=== PATIENT | female | born 1990 | race Caucasian/White ===

== ENCOUNTER 2022-11-29 13:40 | Emergency (ER) | payer MEDICARE, MEDICAID, SELFPAY ==
[2022-11-29 13:46] VITALS: BP 137/100; PULSE 74; RESP 18; TEMP 36.9; O2SAT 97; BMI 44.3
--- NOTE | 2022-11-29 13:55 | ECG_ITS ---
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
--- NOTE | 2022-11-29 13:55 | XR_ITS ---
The [address] [address] Patient Name: JAYE DOSS MRN: [id number] date: 1990 Sex: F Assigned Patient Location: ED.MAIN Current Patient Location: Accession/Order Number: [id number] Exam Date: 11/29/2022 15:00 Report Date: 11/29/2022 15:43 At the request of: FUNMILAYO GREEN Procedure: XR chest 2V EXAM: XR chest 2V HISTORY: chest pain COMPARISON: None. TECHNIQUE: PA and lateral views FINDINGS: The cardiovascular silhouette is normal. Lung hernandez are well-expanded and clear. Pleural spaces are clear. The bony structures are unremarkable. XR/XR chest 2V IMPRESSION: No evidence for acute cardiopulmonary disease. Electronically authenticated by: Luis Fernando JIANG Date: 11/29/2022 15:43
[2022-11-29 14:38] LABS: Basophils Absolute Auto 0.1 10^3/uL (0.0-0.1); Basophils Percent Auto 0.6 % (0.2-2.0); Eosinophils Absolute Auto 0.3 10^3/uL (0.0-0.7); Eosinophils Percent Auto 2.2 % (0.9-7.0); Hemoglobin 13.2 g/dL (12.0-16.0); Immature Granulocytes Abs Auto 0.11 10^3/uL (0.00-0.03); Immature Granulocytes Pct Auto 0.9 % (0.0-0.5); Lymphocytes Absolute Auto 3.3 10^3/uL (1.2-3.8); Lymphocytes Percent Auto 28.1 % (20.5-60.0); Mean Corpuscular HGB Conc 34.7 g/dL (29.9-35.2); Mean Corpuscular Hemoglobin 31.7 pg (26.7-34.0); Mean Corpuscular Volume 91.1 fL (81.0-99.0); Monocytes Percent Auto 8.1 % (1.7-12.0); Neutrophils Absolute Auto 7.1 10^3/uL (1.4-6.5); Neutrophils Percent Auto 60.1 % (43.0-75.0); Platelet Count 293 10^3/uL (150-450); Red Blood Count 4.17 10^6/uL (4.20-5.40); Red Cell Distribution Width 11.8 % (11.0-15.0); White Blood Count 11.8 10^3/uL (4.0-11.0)
[2022-11-29 14:48] LABS: Alanine Aminotransferase 26 U/L (14-59); Albumin Globulin Ratio 1.2; Albumin Level 3.6 g/dL (3.4-5.0); Alkaline Phosphatase 55 U/L (46-116); Anion Gap 12.5; Aspartate Amino Transferase 20 U/L (15-37); BUN Creatinine Ratio 4.9; Bilirubin Total 0.3 mg/dL (0.2-1.0); Calcium 8.8 mg/dL (8.5-10.1); Carbon Dioxide 24.4 mmol/L (21.0-32.0); Chloride 107 mmol/L (98-107); Estimated GFR (African America >60 (>=60); Estimated GFR (Non-African Ame >60 (>=60); Globulin 3.1 g/dL; Glucose 86 mg/dL (74-106); Potassium 3.9 mmol/L (3.5-5.1); Sodium 140 mmol/L (136-145); Total Protein 6.7 g/dL (6.4-8.2); Troponin I High Sensitivity <4.0 pg/mL (4.0-51.3)
--- NOTE | 2022-11-29 15:07 | ED.CHESTPAI1 ---
HPI - Chest Pain General Chief Complaint: Chest Pain Stated Complaint: CHEST PAIN Time Seen by Provider: 11/29/22 13:52 Source: patient Mode of arrival: walk-in Limitations: no limitations History of Present Illness HPI narrative: started yesterday and continued today - describes pressure across the anterior chest. She called her psychiatrist and was told to come to the ED and that it is probably panic . On questioning she has had this numerous times in the past with negative workups. No recent fall, illness or change in activity to account for the chest pain. Nothing taken for the pain today. Related Data Home Medications Medication Instructions Recorded Confirmed buspirone 30 mg tablet 30 mg PO BID 11/29/22 11/29/22 dextroamphetamine-amphetamine 15 15 mg PO BID 11/29/22 11/29/22 mg tablet (Adderall) lithium carbonate 600 mg capsule 600 mg PO BID 11/29/22 11/29/22 olanzapine 2.5 mg tablet (Zyprexa) 2.5 mg PO DAILY 11/29/22 11/29/22 prazosin 5 mg capsule 5 mg PO DAILY 11/29/22 11/29/22 Allergies Allergy/AdvReac Type Severity Reaction Status Date / Time Penicillins Allergy Intermediate Verified 11/29/22 13:54 Exam Narrative Exam Narrative: Nurses notes and vital signs reviewed and patient is not hypoxic. afebrile General: Well-appearing and in no apparent distress. Skin: Warm, dry, no pallor noted. No rash. Head: Normocephalic, atraumatic. Eye: Pupils are equal, round and EOMI. No scleral icterus. Cardiovascular: Regular Rate and Rhythm without murmur, gallop or rub. Respiratory: No accessory muscle use or respiratory distress. Lungs are clear to auscultation, no wheezing, rales or rhonchi Chest Wall: no tenderness, crepitus or subcutaneous emphysema Musculoskeletal: normal ROM, no calf or popliteal tenderness, no lower extremity edema/swelling GI: Abdomen is soft, non-distended. Normal bowel sounds. No tenderness to palpation. No rebound, guarding, or rigidity noted. Neurological: A&O x4. No cranial nerve dysfunction observed. No truncal ataxia. Moves all extremities. Sensation intact. Psychiatric: Cooperative and interactive. Normal mood and affect. Constitutional Vital Signs, click to edit/add: Last Vital Signs Temp 98.5 F 07/17/23 13:46 Pulse 74 11/29/22 13:46 Resp 18 11/29/22 13:46 BP 137/100 H 11/29/22 13:46 Pulse Ox 97 11/29/22 13:46 O2 Del Method Room Air 11/29/22 13:46 Course Vital Signs Vital signs: Vital Signs Temperature 98.5 F 11/29/22 13:46 Pulse Rate 74 11/29/22 13:46 Respiratory Rate 18 11/29/22 13:46 Blood Pressure 137/100 H 11/29/22 13:46 Pulse Oximetry 97 11/29/22 13:46 Oxygen Delivery Method Room Air 11/29/22 13:46 Temperature 98.5 F 11/29/22 13:46 Pulse Rate 74 11/29/22 13:46 Respiratory Rate 18 11/29/22 13:46 Blood Pressure 137/100 H 11/29/22 13:46 Pulse Oximetry 97 11/29/22 13:46 Oxygen Delivery Method Room Air 11/29/22 13:46 MDM - Chest Pain MDM Narrative Medical decision making narrative: Patient was placed on eco industrial development consultant and EKG obtained. Blood drawn and sent for evaluation. chest x-ray obtained. White blood cell count elevated at 11.8. EKG and her main blood testing including cardiac specific medications are negative. Chest x-ray was unremarkable. The patient was given reassurance, encouraged to take Tylenol and NSAIDs for her symptoms and follow-up with her psychiatrist to discuss possible change in medications if these episodes persist. Lab Data Attestation: I reviewed the patient's lab results. Labs: Lab Results 11/29/22 11/29/22 Range/Units 14:00 14:20 WBC 11.8 H (4.0-11.0) 10^3/uL RBC 4.17 L (4.20-5.40) 10^6/uL Hgb 13.2 (12.0-16.0) g/dL Hct 38.0 (36.0-48.0) % MCV 91.1 (81.0-99.0) fL MCH 31.7 (26.7-34.0) pg MCHC 34.7 (29.9-35.2) g/dL RDW 11.8 (11.0-15.0) % Plt Count 293 (150-450) 10^3/uL MPV 11.0 (9.5-13.5) fL Neut % (Auto) 60.1 (43.0-75.0) % Lymph % (Auto) 28.1 (20.5-60.0) % Villalba % (Auto) 8.1 (1.7-12.0) % Eos % (Auto) 2.2 (0.9-7.0) % Baso % (Auto) 0.6 (0.2-2.0) % Neut # (Auto) 7.1 H (1.4-6.5) 10^3/uL Lymph # (Auto) 3.3 (1.2-3.8) 10^3/uL Villalba # (Auto) 1.0 H (0.3-0.8) 10^3/uL Eos # (Auto) 0.3 (0.0-0.7) 10^3/uL Baso # (Auto) 0.1 (0.0-0.1) 10^3/uL Abs Immat Gran (auto) 0.11 H (0.00-0.03) 10^3/uL Imm/Tot Granulo (auto) 0.9 H (0.0-0.5) % Sodium 140 (136-145) mmol/L Potassium 3.9 (3.5-5.1) mmol/L Chloride 107 (98-107) mmol/L Carbon Dioxide 24.4 (21.0-32.0) mmol/L Anion Gap 12.5 BUN 3.0 L (7.0-18.0) mg/dL Creatinine 0.61 (0.55-1.02) mg/dL Est GFR ( Amer) >60 (>=60) Est GFR (Non-Af Amer) >60 (>=60) BUN/Creatinine Ratio 4.9 Glucose 86 (74-106) mg/dL Calcium 8.8 (8.5-10.1) mg/dL Total Bilirubin 0.3 (0.2-1.0) mg/dL AST 20 (15-37) U/L ALT 26 (14-59) U/L Alkaline Phosphatase 55 (46-116) U/L Troponin I High Sens <4.0 L (4.0-51.3) pg/mL Total Protein 6.7 (6.4-8.2) g/dL Albumin 3.6 (3.4-5.0) g/dL Globulin 3.1 g/dL Albumin/Globulin Ratio 1.2 ECG Data Interpretation: EKG interpretation: Emergency Department physician interpretation. Normal sinus rhythm at 77bpm. Normal axis, normal intervals and no ST segment elevation or depression. Heart Score History: Slightly/Non-Suspicious ECG: Normal Age: <45 years Risk Factors: No Risk Factors Troponin: <Normal Limit Total Heart Score Recommendations & Risks:: 0 Discharge Plan Discharge Chief Complaint: Chest Pain Clinical Impression: Chest pain Patient Disposition: Home, Self-Care Time of Disposition Decision: 15:11 Prescriptions / Home Meds: No Action olanzapine [Zyprexa] 2.5 mg tablet 2.5 mg PO DAILY Rx Instructions: 2.5 AM 13 mg PM dextroamphetamine-amphetamine [Adderall] 15 mg tablet 15 mg PO BID Rx Instructions: administer doses at least 4-6 hours apart buspirone 30 mg tablet 30 mg PO BID prazosin 5 mg capsule 5 mg PO DAILY lithium carbonate 600 mg capsule 600 mg PO BID Instructions: Chest Pain (ED) Stand Alone Forms: Portal Instructions Referrals: Carlee Read [Primary Care Provider] - 1 week
[2022-11-29] MEDS: ALPRAZOLAM 0.5 MG TABLET PO (15:30)
== END 2022-11-29 15:41 | disposition home or self-care (01) ==
PROVIDERS: Emergency Provider Emergency Medicine
DX: R07.9 Chest pain, unspecified (principal); Z79.899 Other long term (current) drug therapy
CPT/HCPCS: 36415; 71046; 80053; 84484; 85025; 93005; 99285

== ENCOUNTER 2022-12-27 09:01 | Outpatient (OUT) | payer MEDICARE, MEDICAID, SELFPAY ==
[2022-12-27 11:38] LABS: Basophils Absolute Auto 0.1 10^3/uL (0.0-0.1); Basophils Percent Auto 0.7 % (0.2-2.0); Eosinophils Absolute Auto 0.3 10^3/uL (0.0-0.7); Eosinophils Percent Auto 2.6 % (0.9-7.0); Hematocrit 38.1 % (36.0-48.0); Hemoglobin 12.9 g/dL (12.0-16.0); Immature Granulocytes Abs Auto 0.12 10^3/uL (0.00-0.03); Lymphocytes Absolute Auto 2.9 10^3/uL (1.2-3.8); Lymphocytes Percent Auto 25.1 % (20.5-60.0); Mean Corpuscular HGB Conc 33.9 g/dL (29.9-35.2); Mean Corpuscular Hemoglobin 31.1 pg (26.7-34.0); Mean Corpuscular Volume 91.8 fL (81.0-99.0); Mean Platelet Volume 11.2 fL (9.5-13.5); Monocytes Absolute Auto 0.8 10^3/uL (0.3-0.8); Monocytes Percent Auto 7.2 % (1.7-12.0); Neutrophils Absolute Auto 7.3 10^3/uL (1.4-6.5); Neutrophils Percent Auto 63.4 % (43.0-75.0); Platelet Count 272 10^3/uL (150-450); Red Blood Count 4.15 10^6/uL (4.20-5.40); White Blood Count 11.5 10^3/uL (4.0-11.0)
[2022-12-27 11:52] LABS: Partial Thromboplastin Time 27.3 sec (22.3-36.2); Prothrombin Time 9.8 sec (9.0-11.6)
[2022-12-27 11:54] LABS: INR <0.93
[2022-12-27 11:59] LABS: Alanine Aminotransferase 46 U/L (14-59); Albumin Level 3.5 g/dL (3.4-5.0); Alkaline Phosphatase 55 U/L (46-116); Anion Gap 13.9; Aspartate Amino Transferase 19 U/L (15-37); BUN Creatinine Ratio 8.9; Bilirubin Direct 0.1 mg/dL (0.0-0.2); Bilirubin Total 0.3 mg/dL (0.2-1.0); Calcium 9.1 mg/dL (8.5-10.1); Chloride 107 mmol/L (98-107); Estimated GFR (African America >60 (>=60); Estimated GFR (Non-African Ame >60 (>=60); Globulin 3.6 g/dL; Glucose 159 mg/dL (74-106); Potassium 3.9 mmol/L (3.5-5.1); Sodium 140 mmol/L (136-145); Total Protein 7.1 g/dL (6.4-8.2)
== END 2022-12-27 09:02 | disposition home or self-care (01) ==
LOC: PST 09:02
PROVIDERS: Visit Provider Obstetrics & Gynecology
DX: Z01.812 Encounter for preprocedural laboratory examination (principal); N92.0 Excessive and frequent menstruation with regular cycle; R10.2 Pelvic and perineal pain; N94.6 Dysmenorrhea, unspecified; N94.10 Unspecified dyspareunia
CPT/HCPCS: 36415; 80048; 80076; 85025; 85610; 85730; 86850; 86900; 86901

== ENCOUNTER 2023-01-05 11:14 | Day surgery (SDC) | payer MEDICARE, MEDICAID, SELFPAY ==
[2022-12-27 10:45] VITALS: BP 136/90; PULSE 75; RESP 22; TEMP 36.4; O2SAT 98; BMI 52.2
[2023-01-05] VITALS (15 sets, daily range): BP systolic 111–150; BP diastolic 64–109; PULSE 78–94; RESP 16–20; TEMP 36.5–36.8; O2SAT 92–97; BMI 52.2
[2023-01-05 11:32] LABS: Basophils Absolute Auto 0.1 10^3/uL (0.0-0.1); Basophils Percent Auto 0.5 % (0.2-2.0); Eosinophils Absolute Auto 0.3 10^3/uL (0.0-0.7); Eosinophils Percent Auto 3.1 % (0.9-7.0); Hematocrit 39.1 % (36.0-48.0); Hemoglobin 13.2 g/dL (12.0-16.0); Immature Granulocytes Abs Auto 0.06 10^3/uL (0.00-0.03); Immature Granulocytes Pct Auto 0.6 % (0.0-0.5); Lymphocytes Absolute Auto 2.5 10^3/uL (1.2-3.8); Lymphocytes Percent Auto 25.2 % (20.5-60.0); Mean Corpuscular HGB Conc 33.8 g/dL (29.9-35.2); Mean Corpuscular Hemoglobin 31.2 pg (26.7-34.0); Mean Corpuscular Volume 92.4 fL (81.0-99.0); Mean Platelet Volume 10.6 fL (9.5-13.5); Monocytes Absolute Auto 0.7 10^3/uL (0.3-0.8); Neutrophils Absolute Auto 6.2 10^3/uL (1.4-6.5); Neutrophils Percent Auto 63.6 % (43.0-75.0); Platelet Count 265 10^3/uL (150-450); Red Blood Count 4.23 10^6/uL (4.20-5.40); Red Cell Distribution Width 11.9 % (11.0-15.0); White Blood Count 9.8 10^3/uL (4.0-11.0)
[2023-01-05] MEDS: LACTATED RINGER'S SOLUTION 1,000 ML 50 ML IV (11:51)
[2023-01-05 11:53] LABS: HCG Quantitative <1 mIU/mL
[2023-01-05] MEDS: CIPROFLOXACIN IN 5 % DEXTROSE 400 MG/200 ML PIGGYBACK IV ×2 (12:49→20:25)
[2023-01-05] MEDS: METRONIDAZOLE/SODIUM CHLORIDE 500 MG/100 ML PREMIX IV (12:50)
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
[2023-01-05] MEDS: PROMETHAZINE HCL 25 MG/ML VIAL 12.5 MG IV (17:16)
[2023-01-05] MEDS: ONDANSETRON PF 4 MG/2 ML VIAL IV (17:21)
[2023-01-05] MEDS: OLANZapine 5 MG TABLET 7.5 MG PO (19:28)
[2023-01-05] MEDS: LACTATED RINGER'S SOLUTION 1,000 ML 125 ML IV (19:31)
[2023-01-05] MEDS: BUSPIRONE HCL 15 MG TABLET 30 MG PO (20:59)
[2023-01-05] MEDS: LITHIUM CARBONATE 150 MG CAPSULE 600 MG PO (20:59)
[2023-01-05] MEDS: METRONIDAZOLE/SODIUM CHLORIDE 500 MG/100 ML PREMIX 100 MG IV (21:37)
[2023-01-05] MEDS: SIMETHICONE 80 MG TAB.CHEW PO (22:23)
[2023-01-05] MEDS: KETOROLAC TROMETHAMINE 30 MG/ML VIAL IVP (22:27)
[2023-01-06] MEDS: LACTATED RINGER'S SOLUTION 1,000 ML 125 ML IV (05:08)
[2023-01-06 05:13] LABS: Basophils Percent Auto 0.2 % (0.2-2.0); Hematocrit 34.2 % (36.0-48.0); Hemoglobin 11.4 g/dL (12.0-16.0); Immature Granulocytes Abs Auto 0.15 10^3/uL (0.00-0.03); Immature Granulocytes Pct Auto 0.8 % (0.0-0.5); Lymphocytes Absolute Auto 1.5 10^3/uL (1.2-3.8); Lymphocytes Percent Auto 7.6 % (20.5-60.0); Mean Corpuscular HGB Conc 33.3 g/dL (29.9-35.2); Mean Corpuscular Hemoglobin 31.6 pg (26.7-34.0); Mean Corpuscular Volume 94.7 fL (81.0-99.0); Monocytes Absolute Auto 1.4 10^3/uL (0.3-0.8); Monocytes Percent Auto 7.1 % (1.7-12.0); Neutrophils Absolute Auto 16.9 10^3/uL (1.4-6.5); Neutrophils Percent Auto 84.3 % (43.0-75.0); Platelet Count 266 10^3/uL (150-450); Red Blood Count 3.61 10^6/uL (4.20-5.40); Red Cell Distribution Width 12.1 % (11.0-15.0)
[2023-01-06 05:32] VITALS: BP 149/76; PULSE 91; RESP 16; TEMP 36.9; O2SAT 94
[2023-01-06] MEDS: KETOROLAC TROMETHAMINE 30 MG/ML VIAL IVP (05:55)
== END 2023-01-06 08:42 | disposition home or self-care (01) ==
LOC: SURGOUT 16:59 → MS 18:13
PROVIDERS: Visit Provider Obstetrics & Gynecology
PROC: (CPT 58570; principal; 2023-01-05 12:30)
DX: N72 Inflammatory disease of cervix uteri (principal); N87.9 Dysplasia of cervix uteri, unspecified; N94.6 Dysmenorrhea, unspecified; R10.2 Pelvic and perineal pain; F41.9 Anxiety disorder, unspecified; F32.A Depression, unspecified; N94.10 Unspecified dyspareunia; M79.7 Fibromyalgia; N92.0 Excessive and frequent menstruation with regular cycle; E66.01 Morbid (severe) obesity due to excess calories; Z79.899 Other long term (current) drug therapy; J30.2 Other seasonal allergic rhinitis; N39.3 Stress incontinence (female) (male); Z90.79 Acquired absence of other genital organ(s); Z68.43 Body mass index [BMI] 50.0-59.9, adult
CPT/HCPCS: 58570; 36415; 84702; 85025; 88307; J2704

== ENCOUNTER 2023-02-26 15:14 | Emergency (ER) | payer MEDICARE, MEDICAID, SELFPAY ==
[2023-02-26 15:19] VITALS: PULSE 80; RESP 16; TEMP 36.4; O2SAT 98; BMI 49.4
--- NOTE | 2023-02-26 15:29 | CT_ITS ---
The [address] [address] Patient Name: JAYE DOSS MRN: [id number] date: 1990 Sex: F Assigned Patient Location: ER Current Patient Location: Accession/Order Number: [id number] Exam Date: 02/26/2023 16:50 Report Date: 02/26/2023 18:57 At the request of: TREVOR GIFFORD Procedure: CT abdomen pelvis wo con EXAMINATION: CT abdomen pelvis wo con, 02/26/2023 4:50 PM EDT HISTORY: kidney stones COMPARISON: None. TECHNIQUE: CT scan of the abdomen and pelvis was performed without IV contrast. CT dose reduction technique was used, including Automated Exposure Control. FINDINGS: LOWER CHEST: Normal. LIVER: Enlarged at 23 cm in length with severe diffuse fatty infiltration. GALLBLADDER AND BILIARY SYSTEM: Normal. SPLEEN: Normal. PANCREAS: Normal. ADRENAL GLANDS: Normal. KIDNEYS AND URETERS: Normal, with no urolithiasis or obstructive uropathy. VASCULATURE: Normal. RETROPERITONEUM AND LYMPH NODES: Normal, with no lymphadenopathy. GASTROINTESTINAL TRACT/MESENTERY: Small hiatal hernia. The bowel and mesentery otherwise appear unremarkable. Normal appendix. BLADDER: Normal. REPRODUCTIVE SYSTEM: Status-post hysterectomy. The adnexa appear normal. BODY WALL: There is a small fat-containing umbilical hernia. BONES: No acute abnormality. CT/CT abdomen pelvis wo con IMPRESSION: 1. No acute process in the abdomen or pelvis on limited noncontrast CT. 2. Fatty liver and hepatomegaly. 3. Small hiatal hernia and small fat-containing umbilical hernia. Electronically authenticated by: AJ MACE Date: 02/26/2023 18:57
[2023-02-26 15:30] VITALS: BP 166/107
[2023-02-26 15:39] LABS: Bilirubin Urine NEGATIVE (NEGATIVE); Blood Urine NEGATIVE (NEGATIVE); Clarity Urine CLEAR (CLEAR); Color Urine YELLOW (YELLOW); Glucose Urine UA NEGATIVE (NEGATIVE); Ketones Urine NEGATIVE (NEGATIVE); Leukocyte Esterase Urine NEGATIVE (NEGATIVE); Nitrite Urine NEGATIVE (NEGATIVE); Protein Urine NEGATIVE (NEG/TRACE); Urine Microscopic Indicated NO; Urobilinogen Urine 0.2 EU/dL (0.2-1.0)
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
[2023-02-26] MEDS: HYDROMORPHONE HCL 2 MG/ML VIAL 1 MG IV (15:48)
[2023-02-26] MEDS: KETOROLAC TROMETHAMINE 30 MG/ML VIAL 15 MG IVP (15:49)
[2023-02-26 16:01] LABS: Basophils Absolute Auto 0.1 10^3/uL (0.0-0.1); Basophils Percent Auto 0.6 % (0.2-2.0); Eosinophils Absolute Auto 0.4 10^3/uL (0.0-0.7); Eosinophils Percent Auto 3.2 % (0.9-7.0); Hematocrit 34.9 % (36.0-48.0); Hemoglobin 11.7 g/dL (12.0-16.0); Immature Granulocytes Abs Auto 0.06 10^3/uL (0.00-0.03); Immature Granulocytes Pct Auto 0.5 % (0.0-0.5); Lymphocytes Absolute Auto 3.6 10^3/uL (1.2-3.8); Lymphocytes Percent Auto 31.4 % (20.5-60.0); Mean Corpuscular HGB Conc 33.5 g/dL (29.9-35.2); Mean Corpuscular Hemoglobin 31.6 pg (26.7-34.0); Mean Corpuscular Volume 94.3 fL (81.0-99.0); Mean Platelet Volume 11.7 fL (9.5-13.5); Monocytes Percent Auto 9.2 % (1.7-12.0); Neutrophils Absolute Auto 6.2 10^3/uL (1.4-6.5); Neutrophils Percent Auto 55.1 % (43.0-75.0); Platelet Count 224 10^3/uL (150-450); Red Cell Distribution Width 11.6 % (11.0-15.0); White Blood Count 11.3 10^3/uL (4.0-11.0)
[2023-02-26 16:24] LABS: Anion Gap 13.4; BUN Creatinine Ratio 12.5; Calcium 8.7 mg/dL (8.5-10.1); Carbon Dioxide 26.2 mmol/L (21.0-32.0); Chloride 105 mmol/L (98-107); Estimated GFR (African America >60 (>=60); Estimated GFR (Non-African Ame >60 (>=60); Glucose 102 mg/dL (74-106); Potassium 3.6 mmol/L (3.5-5.1); Sodium 141 mmol/L (136-145)
[2023-02-26 16:35] VITALS: BP 160/90; PULSE 80; RESP 18; O2SAT 98
[2023-02-26 17:32] VITALS: BP 130/88; PULSE 86; RESP 16; O2SAT 97
[2023-02-26 18:53] VITALS: BP 132/88; PULSE 87; RESP 16; O2SAT 98
[2023-02-26] MEDS: KETOROLAC TROMETHAMINE 10 MG TABLET 20 MG PO (18:56)
== END 2023-02-26 18:58 | disposition home or self-care (01) ==
PROVIDERS: Emergency Provider Emergency Medicine Emergency Medical Services
DX: R10.9 Unspecified abdominal pain (principal); N39.3 Stress incontinence (female) (male); M79.7 Fibromyalgia; K76.0 Fatty (change of) liver, not elsewhere classified; F43.10 Post-traumatic stress disorder, unspecified; J30.2 Other seasonal allergic rhinitis; F31.9 Bipolar disorder, unspecified; F41.0 Panic disorder [episodic paroxysmal anxiety]; K08.409 Partial loss of teeth, unspecified cause, unspecified class; Z98.890 Other specified postprocedural states; Z98.51 Tubal ligation status; Z90.710 Acquired absence of both cervix and uterus; Z79.899 Other long term (current) drug therapy; Z87.891 Personal history of nicotine dependence
CPT/HCPCS: 36415; 74176; 80048; 81003; 85025; 96374; 96375; 99285; J1170

== ENCOUNTER 2023-04-06 09:34 | Emergency (ER) | payer MEDICARE, MEDICAID, SELFPAY ==
[2023-04-06 09:38] VITALS: BP 142/69; PULSE 83; RESP 18; TEMP 37.3; O2SAT 98; BMI 51.2
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
[2023-04-06 10:11] LABS: Basophils Absolute Auto 0.1 10^3/uL (0.0-0.1); Basophils Percent Auto 0.6 % (0.2-2.0); Eosinophils Absolute Auto 0.3 10^3/uL (0.0-0.7); Hematocrit 39.5 % (36.0-48.0); Hemoglobin 12.6 g/dL (12.0-16.0); Immature Granulocytes Abs Auto 0.06 10^3/uL (0.00-0.03); Immature Granulocytes Pct Auto 0.6 % (0.0-0.5); Lymphocytes Absolute Auto 2.8 10^3/uL (1.2-3.8); Lymphocytes Percent Auto 26.5 % (20.5-60.0); Mean Corpuscular HGB Conc 31.9 g/dL (29.9-35.2); Mean Corpuscular Hemoglobin 30.6 pg (26.7-34.0); Mean Corpuscular Volume 95.9 fL (81.0-99.0); Mean Platelet Volume 11.1 fL (9.5-13.5); Monocytes Absolute Auto 0.8 10^3/uL (0.3-0.8); Monocytes Percent Auto 7.2 % (1.7-12.0); Neutrophils Absolute Auto 6.5 10^3/uL (1.4-6.5); Neutrophils Percent Auto 62.1 % (43.0-75.0); Platelet Count 242 10^3/uL (150-450); Red Blood Count 4.12 10^6/uL (4.20-5.40); White Blood Count 10.5 10^3/uL (4.0-11.0)
[2023-04-06] MEDS: LORAZEPAM 2 MG/ML 1 ML VIAL 1 MG IV (10:15)
[2023-04-06 10:30] LABS: Anion Gap 9.5; BUN Creatinine Ratio 6.3; Calcium 9.2 mg/dL (8.5-10.1); Carbon Dioxide 29.2 mmol/L (21.0-32.0); Chloride 109 mmol/L (98-107); Estimated GFR (African America >60 (>=60); Estimated GFR (Non-African Ame >60 (>=60); Glucose 117 mg/dL (74-106); Potassium 3.7 mmol/L (3.5-5.1); Sodium 144 mmol/L (136-145)
[2023-04-06 10:38] LABS: Occult Blood Negative
[2023-04-06 11:45] VITALS: BP 142/98; PULSE 76; RESP 20; O2SAT 98
== END 2023-04-06 11:59 | disposition home or self-care (01) ==
PROVIDERS: Emergency Provider Emergency Medicine
DX: K92.2 Gastrointestinal hemorrhage, unspecified (principal); F41.9 Anxiety disorder, unspecified; F31.9 Bipolar disorder, unspecified; M79.7 Fibromyalgia; K76.0 Fatty (change of) liver, not elsewhere classified; F43.10 Post-traumatic stress disorder, unspecified; J30.2 Other seasonal allergic rhinitis; Z90.710 Acquired absence of both cervix and uterus; Z79.899 Other long term (current) drug therapy; Z98.890 Other specified postprocedural states; Z87.891 Personal history of nicotine dependence
CPT/HCPCS: 36415; 80048; 85025; 96374; 99284; G0328

== ENCOUNTER 2024-09-27 17:10 | Emergency (ER) | payer MEDICARE, SELFPAY ==
[2024-09-27 17:20] VITALS: BP 136/82; PULSE 68; TEMP 37.2; O2SAT 98; BMI 43.9
--- NOTE | 2024-09-27 17:28 | PC.NURSE ---
Pain and swelling to left outer ankle, skin pink and warm and pulses present, ice pack applied.
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
[2024-09-27] MEDS: HYDROCODONE/ACET 5-325 MG TABLET 1 TAB PO (17:42)
--- OUTSIDE RECORDS SUMMARY | 2024-09-27 17:45 | XMS_ITS | CCD ---
Author Organization [facility] ion Partnership [facility] [place] [facility] Care Team Providers Care Chef Concierge Name Role Phone Chevy Cheryl Hebert Primary Care Unavailable Kari Nicolas Attending Unavailable Read, Carlee Primary Care Provider [phone] READ, CARLEE Primary Care Unavailable PANGULUR, JULIAN N Referring Unavailable READ, CARLEE Primary Care Unavailable PANGULUR, JULIAN N Referring Unavailable READ, CARLEE Primary Care Unavailable PANGULUR, JULIAN N Admitting Unavailable PANGULUR, JULIAN N Attending Unavailable READ, CARLEE Primary Care Unavailable SELF, REFERRED Primary Care Unavailable SELF, REFERRED Referring Unavailable EBRAHEIM, DELORES Admitting Unavailable EBRAHEIM, DELORES Attending Unavailable READ, CARLEE Primary Care Unavailable ABRAHAM ., DR PRADO Admitting Unavailable ABRAHAM ., DR PRADO Attending Unavailable ABRAHAM ., DR PRADO Consulting Unavailable ROSS II, TYRON Consulting Unavailable SHOSHANA LAWSON Consulting Unavailable ABRAHAM ., DR PRADO Attending Unavailable ABRAHAM ., DR PRADO Consulting Unavailable ABRAHAM ., DR PRADO Admitting Unavailable REQUEST, NONE LISTED Primary Care Unavaila ble ZIEBER, DR AJ Cervantes Consulting Unavailable REQUEST, NONE LISTED Primary Care Unavaila ble ABRAHAM ., DR PRADO Attending Unavailable ABRAHAM ., DR PRADO Consulting Unavailable ABRAHAM ., DR PRADO Admitting Unavailable REQUEST, NONE LISTED Primary Care Unavaila ble ABRAHAM ., DR PRADO Attending Unavailable ABRAHAM ., DR PRADO Consulting Unavailable ABRAHAM ., DR PRADO Admitting Unavailable EDE DC Consulting Unavailable JESSIKA SCHULTZ Attending Unavailable SERVICES, [facility] Primary Care Unava ilTREVOR Hassan Attending Unavailable READ, CARLEE Primary Care Unavailable Malvasi, Yoly Attending Unavailable Maljuanita Yoly Attending Unavailable Malalysoni, Yoly Referring Unavailable READ, CARLEE Primary Care Unavailable MIKAEL DONIS Referring Unavailable READ, CARLEE Primary Care Unavailable Jacek VOSS, Carlee Primary Care Provider JAI SHERIFF Attending Unavailable SERVICES, [facility] Unava ilable SERVICES, [facility] Unava ilable VALERIO DAWKINS Attending Unavailable AMINAH WHITE Attending Unavailable AMINAH WHITE Referring Unavailable SERVICES, [facility] Unava ilable SERVICES, [facility] Unava ilable JESSIKA SCHULTZ Admitting Unavailable JESSIKA SCHULTZ Attending Unavailable SERVICES, [facility] Unava ilable HERMAN BENTON Attending Unavailable SERVICES, [facility] Unava ilable GRILLISJESSIKA Attending Unavailable JESSIKA SCHULTZ Referring Unavailable SERVICES, [facility] Unava ilable Services, [facility] Provider Allergies Allergy Classification Reported Allergen(s) Allergy Type Date of Onset Reaction(s) Facility (3 sources) Penicillins; Translations: [PENICILLINS] Drug allergy (disorder) 1 [facility] Repository (10 sources) Amoxicillin; Translations: [AMOXICILLIN] Drug Allergy 1 [place], [place] (8 sources) Penicillins Propensity to adverse reactions to drug 1 [place], [place] (3 sources) Codeine; Translations: [CODEINE] Drug Allergy 9 [facility] Repository (1 source) lamoTRIgine Drug Allergy [facility] (3 sources) Latex; Translations: [LATEX] Drug allergy (disorder) 3 [facility] (1 source) NSAIDs Drug allergy (disorder) [facility] (1 source) Penicillins Drug allergy (disorder) [facility] (6 sources) Adhesive agent; Translations: [ADHESIVE] Propensity to adverse reactions to drug (disorder) 4 Other (See Comments) [facility] Repository (10 sources) lamoTRIgine; Translations: [LAMOTRIGINE] Drug Allergy 9 Unknown, Other [facility] Repository (1 source) Acetaminophen / Codeine Drug Allergy 3 [facility] Work Phone: (3 sources) Codeine Drug Allergy 9 Other [facility] (4 sources) Latex Propensity to adverse reactions 3 [facility] (4 sources) Penicillins Drug Allergy 1 Rash, Other [facility] (4 sources) Latex Propensity to adverse reactions to drug 3 [facility] (4 sources) Penicillins Propensity to adverse reactions to drug 1 Rash [facility] Medications Current Medications Medication Drug Class(es) Dates Sig (Normalized) Sig (Original) 200 actuat albuterol 0.09 mg/actuat dry powder inhaler (4 sources) beta2-Adrenergic Agonist albuterol (ProAir RespiClick) 90 mcg/act breath-activated inhaler INHALE 2 PUFFS INTO THE LUNGS EVERY 4 6 HOURS NEEDED FOR SHORTNESS OF BREATH Active busPIRone hydrochloride 30 mg oral tablet (8 sources) take 1 tablet by mouth in the morning busPIRone (Buspar) 30 MG tablet Take 30 mg by mouth in the morning and 30 mg before bedtime. Active take 0.5 tablet by m outh in the morning, then take 0.5 tablet by mouth at bedtime busPIRone (BUSPAR) 30 mg tablet Take 0.5 tablets (15 mg total) by mouth in the morning and 0.5 tablets (15 mg total) before bedtime. 0 Active calcium chloride 0.0014 meq/ml / potassium chloride 0.004 meq/ml / sodium chloride 0.103 meq/ml / sodium lactate 0.028 meq/ml injectable solution (1 source) Start: 01-09-2020 lactated ringers infusion 1 ml diphenhydrAMINE hydrochloride 50 mg/ml cartridge (1 source) Histamine-1 Receptor Antagonist Start: 01-09-2020 End: 01-09-2020 diphenhydrAMINE (BENADRYL) injection 12.5 mg FLUoxetine 40 mg oral capsule (4 sources) Serotonin Reuptake Inhibitor take 1 capsule by mouth in the morning FLUoxetine (PROzac) 40 mg capsule Take 1 capsule (40 mg total) by mouth in the morning. 0 Active 12 hr guaiFENesin 600 mg extended release oral tablet (4 sources) Start: 03-24-2023 take 1 tablet by mouth every twelve hours as needed MUCUS RELIEF ER 600 mg tablet extended release 12hr Take 1 tablet (600 mg total) by mouth every 12 (twelve) hours as needed. 0 03/24/2023 Active 1 ml HYDROmorphone hydrochloride 1 mg/ml cartridge (1 source) Opioid Agonist Start: 01-09-2020 HYDROmorphone (DILAUDID) injection 0.5 mg ibuprofen 800 mg oral tablet (1 source) Nonsteroidal Anti-inflammatory Drug Start: 12-12-2023 take 800 mg by mouth every eight hours Ibuprofen Active 800 MG PO Q8H December 12, 2023 12:00am 4 ml labetalol hydrochloride 5 mg/ml cartridge (1 source) beta-Adrenergic Gretchen Start: 01-09-2020 labetalol (NORMODYNE;TRANDATE) injection 5 mg loratadine 10 mg oral tablet (4 sources) take 1 tablet by mouth once daily as needed loratadine (CLARITIN) 10 mg tablet Take 1 tablet (10 mg total) by mouth daily as needed. 0 Active 1 ml meperidine hydrochloride 25 mg/ml cartridge (1 source) Opioid Agonist Start: 01-09-2020 meperidine (DEMEROL) injection 12.5 mg 1 ml morphine sulfate 2 mg/ml cartridge (1 source) Opioid Agonist Start: 01-09-2020 morphine (PF) injection 2 mg omeprazole 20 mg delayed release oral capsule (1 source) Proton Pump Inhibitor Start: 06-09-2023 End: 06-23-2023 take 2 capsules by mouth at bedtime omeprazole (PriLOSEC) 20 mg capsule Take 2 capsules (40 mg total) by mouth in the morning and at bedtime for 14 days. 56 capsule 0 06/09/2023 06/23/2023 Active ondansetron 4 mg oral tablet (8 sources) Serotonin-3 Receptor Antagonist Start: 03-30-2023 take 1 tablet by mouth twice daily as needed ondansetron (ZOFRAN) 4 mg tablet Take 1 tablet (4 mg total) by mouth 2 (two) times a day as needed. 0 03/30/2023 Active Start: 01-09-2020 End: 01-09-2020 ondansetron (ZOFRAN) injecti on 4 mg Start: 01-30-2019 End: 01-12-2024 take 2 tablets by mouth every eight hours as needed ondansetron (Zofran) 4 MG tablet Take 8 mg by mouth every 8 (eight) hours if needed. 4 mg 01/30/2019 01/12/2024 Discontinued OXcarbazepine 150 mg oral tablet (4 sources) Anti-epileptic Agent take 2 tablets by mouth twice daily OXcarbazepine (TRILEPTAL) 150 MG tablet Take 300 mg by mouth 2 times daily 0 Active OXcarbazepine (T RILEPTAL) 300 MG tablet Take 150 mg by mouth daily 0 Active pantoprazole 40 mg delayed release oral tablet (4 sources) Proton Pump Inhibitor take 1 tablet by mouth once daily pantoprazole (PROTONIX) 40 MG tablet Take 40 mg by mouth daily 0 Active peg 3350-sod sulf,vmai-eca-czs 178.7-7.3-0.5 gram recon soln (2 sources) Start: End: 4 peg 3350-sod sulf,yumf-nva-tgs 178.7-7.3-0.5 gram recon soln Take 1 kit by mouth in the morning for 1 dose. Please see instructional sheet given by Physicians office. 1 each 0 06/01/2023 06/02/2023 Active SUMAtriptan 50 mg oral tablet (8 sources) Serotonin-1b and Serotonin-1d Receptor Agonist SUMAtriptan (IMITREX ) 50 mg tablet Take 1 tablet (50 mg total) by mouth as needed. 0 Active SUMAtriptan Succ inate (IMITREX PO) Take by mouth. 0 Suspended SUMAtriptan Succ inate (IMITREX PO) Take by mouth. 0 Active valACYclovir 500 mg oral tablet (4 sources) Herpesvirus Nucleoside Analog DNA Polymerase Inhibitor, Herpes Simplex Virus Nucleoside Analog DNA Polymerase Inhibitor, Herpes Zoster Virus Nucleoside Analog DNA Polymerase Inhibitor take 1 tablet by mouth once daily valacyclovir (VALTREX) 500 MG tablet Take 500 mg by mouth daily. 0 Active Completed/Discontinued Medications Medication Drug Class(es) Dates Sig (Normalized) Sig (Original) ALPRAZolam 0.25 mg oral tablet (7 sources) Benzodiazepine Start: 12-02-2022 End: 01-12-2024 take 1 tablet by mouth every twenty-four hours as needed for anxiety ALPRAZolam (Xanax) 0.25 MG tablet Take 0.25 mg by mouth Daily as needed for anxiety. 12/02/2022 01/12/2024 Discontinued take 1 tablet by mouth three kevin es daily XANAX 0.5 mg tablet Take 1 tablet (0.5 mg total) by mouth 3 (three) times a day. 0 Active amphetamine aspartate 2.5 mg / amphetamine sulfate 2.5 mg / dextroamphetamine saccharate 2.5 mg / dextroamphetamine sulfate 2.5 mg oral tablet (3 sources) Central Nervous System Stimulant Start: 06-04-2022 End: 01-12-2024 take 1 tablet by mouth once daily in the morning amphetamine-dextroamphetamine (Adderall) 10 MG tablet TAKE 1 TABLET BY MOUTH ONCE DAILY IN THE MORNING AND IN THE EVENING DIRECTED 06/04/2022 01/12/2024 Discontinued asenapine 5 mg sublingual tablet (3 sources) Atypical Antipsychotic End: 01-12-2024 asenapine (Saphris) SL table t every 12 (twelve) hours. 01/12/2024 Discontinued citalopram 40 mg oral tablet (6 sources) Serotonin Reuptake Inhibitor End: 01-12-2024 citalopram (CeleXA) 40 MG tablet 1 (one) time each day at the same time. 01/12/2024 Discontinued End: 01-09-2020 take 1 tablet by mouth once daily citalopram (CELEXA) 20 MG tablet Take 20 mg by mouth daily. 0 01/09/2020 Discontinued (Therapy completed) cloNIDine hydrochloride 0.1 mg oral tablet (3 sources) Central alpha-2 Adrenergic Agonist End: 01-12-2024 cloNIDine (Catapres) 0.1 MG tablet TAKE 1 TABLET EVERY DAY NEEDED 01/12/2024 Discontinued cyclobenzaprine hydrochloride 10 mg oral tablet (3 sources) Muscle Relaxant Start: 11-23-2022 End: 01-12-2024 take 0.5 tablet by mouth in the morning cyclobenzaprine (Flexeril) 10 MG tablet Indications: Menorrhagia with regular cycle Take 0.5 tablets (5 mg) by mouth in the morning and 0.5 tablets (5 mg) before bedtime. Do all this for 21 days. 21 tablet 11/23/2022 01/12/2024 Discontinued ergocalciferol 1.25 mg oral capsule (3 sources) Provitamin D2 Compound End: 01-12-2024 take 1 capsule by mouth every week ergocalciferol (Vitamin D-2) 1.25 MG (28871 UT) capsule TAKE 1 CAPSULE EVERY WEEK BY MOUTH DIRECTED. 01/12/2024 Discontinued lithium carbonate 600 mg oral capsule (7 sources) End: 01-12-2024 take 1 capsule by mouth in the morning lithium 600 MG capsule Take 600 mg by mouth in the morning and 600 mg in the evening. Take with meals. 01/12/2024 Discontinued OLANZapine 2.5 mg oral tablet (17 sources) Atypical Antipsychotic End: 01-12-2024 take 1 tablet by mouth once daily OLANZapine (ZyPREXA) 2.5 MG tablet olanzapine 2.5 mg tablet TAKE 1 TABLET BY MOUTH EVERY DAY 01/12/2024 Discontinued End: 01-12-2024 take 1 tablet by mouth at bedtime OLANZapine (ZyPREXA) 10 MG tablet Take 10 mg by mouth at bedtime. 01/12/2024 Discontinued OLANZapine (ZYPR EXA) 10 MG injection Inject into the muscle daily 0 Active prazosin 5 mg oral capsule (18 sources) alpha-Adrenergic Gretchen End: 01-12-2024 take 1 capsule by mouth at bedtime prazosin (Minipress) 5 MG capsule Take 5 mg by mouth at bedtime. 01/12/2024 Discontinued take 2 capsules by mouth once da kassidy prazosin (MINIPRESS) 2 MG capsule Take 4 mg by mouth nightly 0 Active QUEtiapine 50 mg oral tablet (3 sources) Atypical Antipsychotic End: 01-09-2020 take 1 tablet by mouth three times daily as needed quetiapine (SEROQUEL) 50 MG tablet Take 50 mg by mouth 3 times daily as needed. 0 01/09/2020 Discontinued (Therapy completed) Problems Active Problems Problem Classification Problem Date Documented Da te Episodic/Chronic Anxiety disorders (1 source) Panic disorder [episodic paroxysmal anxiety]; Translations: [Panic disorder (episodic paroxysmal anxiety)] Onset: 10-06-2023 Chronic Contraceptive and procreative management (2 sources) Encounter for removal of intrauterine contraceptive device; Translations: [Tubal ligation status] Onset: 08-13-2022 Episodic E Codes: Natural/environment (1 source) Bitten by cat, initial encounter; Translations: [Bitten by cat, initial encounter] Onset: 05-09-2024 Episodic Fluid and electrolyte disorders (1 source) Hypokalemia; Translations: [Hypokalemia] Onset: 10-06-2023 Episodic Fracture of lower limb (1 source) Nondisplaced fracture of distal phalanx of right great toe, initial encounter for closed fracture; Translations: [Nondisplaced fracture of distal phalanx of right great toe, initial encounter for closed fracture] Onset: 12-11-2023 Episodic Immunizations and screening for infectious disease (1 source) Encounter for screening for human papillomavirus (HPV); Translations: [ENC SCREENING HUMAN PAPILLOMAVIRUS] Onset: 07-02-2022 Episodic Menstrual disorders (7 sources) Excessive and frequent menstruation with regular cycle; Translations: [Excessive and frequent menstruation with irregular cycle] Onset: 07-27-2022 Chronic Mood disorders (7 sources) Premenstrual dysphoric disorder; Translations: [Bipolar disorder, unspecified] Onset: 06-23-2022 06-01-2023 Chronic Nonmalignant breast conditions (1 source) Mammographic calcification found on diagnostic imaging of breast; Translations: [MAMMO CALCIF FOUND DX IMAG BRST] Onset: 08-13-2022 Episodic Nonspecific chest pain (1 source) Chest pain, unspecified; Translations: [Chest pain, unspecified] Onset: 10-06-2023 Episodic Other connective tissue disease (1 source) Fibromyalgia; Translations: [FIBROMYALGIA] Onset: 08-13-2022 Episodic Other female genital disorders (1 source) Unspecified dyspareunia; Translations: [UNSPECIFIED DYSPAREUNIA] Onset: 08-13-2022 Chronic Other female genital disorders (1 source) Personal history of other diseases of the female genital tract; Translations: [Personal history of other diseases of the female genital tract] Onset: 06-01-2023 Episodic Other gastrointestinal disorders (1 source) Diarrhea, unspecified; Translations: [Diarrhea, unspecified] Onset: 06-01-2023 Episodic Other nutritional; endocrine; and metabolic disorders (2 sources) Morbid (severe) obesity due to excess calories; Translations: [MORBID SEVERE OBES D/T EXCESS CARL] Onset: 08-13-2022 Chronic Other nutritional; endocrine; and metabolic disorders (1 source) Body mass index (BMI) 40.0-44.9, adult; Translations: [BODY MASS INDEX BMI 40.0-44.9 ADULT] Onset: 08-13-2022 Chronic Other nutritional; endocrine; and metabolic disorders (1 source) Body mass index (BMI) 50.0-59.9, adult; Translations: [Body mass index (BMI) 50.0-59.9, adult] Onset: 06-01-2023 Chronic Other nutritional; endocrine; and metabolic disorders (5 sources) Body mass index 40+ - severely obese; Translations: [Morbid (severe) obesity due to excess calories] Onset: 04-20-2019 06-01-2023 Chronic Other screening for suspected conditions (not mental disorders or infectious disease) (5 sources) Abnormal results of thyroid function studies; Translations: [Encounter for screening for malignant neoplasm of cervix] Onset: 06-29-2022 Episodic Skin and subcutaneous tissue infections (1 source) Cellulitis, unspecified; Translations: [Cellulitis, unspecified] Onset: 05-09-2024 Episodic Substance-related disorders (1 source) Nicotine dependence, other tobacco product, uncomplicated; Translations: [NICOTINE DEPEND OTH TOB PROD UNCOMP] Onset: 07-27-2022 Chronic Unclassified (1 source) GI Bleeding Onset: 06-01-2023 Unclassified (2 sources) Animal Bite Onset: 05-09-2024 Unclassified (1 source) Esophagitis, unspecified without bleeding; Translations: [Esophagitis, unspecified without bleeding] Onset: 06-27-2023 Unclassified (1 source) Black or Bloody Stool Onset: 06-09-2023 Past or Other Problems Problem Classification Problem Date Documented Da te Episodic/Chronic Abdominal pain (5 sources) Epigastric pain; Translations: [Pelvic and perineal pain] Onset: 08-13-2022 01-12-2024 Episodic Calculus of urinary tract (4 sources) Kidney stone; Translations: [Calculus of kidney] Onset: 04-20-2019 04-20-2019 Episodic Gastrointestinal hemorrhage (7 sources) Hemorrhage of anus and rectum; Translations: [Melena] Onset: 06-01-2023 06-01-2023 Episodic Genitourinary symptoms and ill-defined conditions (2 sources) Urinary symptoms ; Translations: [Unspecified symptoms and signs involving the genitourinary system] 01-12-2024 Episodic Nausea and vomiting (1 source) Nausea with vomiting, unspecified; Translations: [Nausea with vomiting, unspecified] Onset: 06-09-2023 Episodic Other and unspecified benign neoplasm (1 source) Polyp of colon; Translations: [Polyp of colon] Onset: 06-27-2023 Episodic Other female genital disorders (2 sources) Ovarian pain; Translations: [Other specified conditions associated with female genital organs and menstrual cycle] 01-12-2024 Episodic Other female genital disorders (1 source) History of endometriosis; Translations: [Personal history of other diseases of the female genital tract] 06-01-2023 Episodic Other gastrointestinal disorders (1 source) Diarrhea; Translations: [Diarrhea, unspecified] 06-01-2023 Episodic Spondylosis; intervertebral disc disorders; other back problems (8 sources) Backache; Translations: [Dorsalgia, unspecified] Onset: 04-06-2011 04-06-2011 Episodic Results Test Name Value Interpretation Reference Range Facility URETHRITIS/DISCHARGE PLUS VA GINITIS (HTRX)on 01-13-2024 ATOPOBIUM VAGINAE 0.000 [facility] ATOPOBIUM VAGINAE Not detected [facility] BVAB 2,3 (BACTERIAL VAGINOSIS ASSOCIATED BACTERIA 2, 3); MOBILUNCUS SPP 0.000 [facility] BVAB 2,3 (BACTERIAL VAGINOSIS ASSOCIATED BACTERIA 2, 3); MOBILUNCUS SPP Not detected [facility] DASH ALBICANS, PARAPSILOSIS, TROPICALIS 0.000 [facility] DASH ALBICANS, PARAPSILOSIS, TROPICALIS Not detected [facility] DASH GLABRATA 0.000 [facility] DASH GLABRATA Not detected [facility] DASH KRUSEI 0.000 [facility] DASH KRUSEI Not detected [facility] CHLAMYDIA TRACHOMATIS 0.000 [facility] CHLAMYDIA TRACHOMATIS Not detected [facility] GARDNERELLA VAGINALIS 0.000 [facility] GARDNERELLA VAGINALIS Not detected [facility] MEGASPHAERA (TYPES 1, 2) 0.000 [facility] MEGASPHAERA (TYPES 1, 2) Not detected [facility] MYCOPLASMA GENITALIUM 0.000 [facility] MYCOPLASMA GENITALIUM Not detected [facility] NEISSERIA GONORRHOEAE 0.000 [facility] NEISSERIA GONORRHOEAE Not detected [facility] TRICHOMONAS VAGINALIS 0.000 [facility] TRICHOMONAS VAGINALIS Not detected [facility] Urinalysis macro (dipstick) panel (U)on 01-12-2024 Bilirubin, UA Positive Negative - 4(70) +++ mg/dL [facility] Blood, UA Negative Negative - 50 Sea/mcL [facility] Clarity, UA Clear [facility] Color, UA Yellow [facility] Glucose, UA Negative Negative - 1999(110) ++++ mg/dL [facility] Interpretation and review of laboratory results Abnormal [facility] Ketones, UA Negative Negative - 160(16) ++++ mg/dL [facility] Leukocytes, UA Negative Negative - 500+++ Vale/mcL [facility] Nitrite, UA Negative Negative - Positive [facility] pH, UA 5.5 5 - 9 [facility] Protein, UA Negative Negative - 1999(20) ++++ mg/dL [facility] Spec Grav, UA 1.025 1 - 1.03 [facility] Urobilinogen, UA 0.2 0.2 - 12 mg/dL [facility] XR FOOT RIGHT (MIN 3 VIEWS)o n 12-11-2023 XR FOOT RIGHT (MIN 3 VIEWS) EXAMINATION: THREE XRAY VIEWS OF THE RIGHT [...] Flex García III, DO 12/11/23 Final result Normal [facility] Comment on above: Order Comment: Reaso n for exam:->slip, right great toe pain Basic Metabolic Profon 10-05 Anion gap [Moles/Vol] 13 mmol/L Normal 9- [facility] Comment on above: Performed By: #### C DP, BMP, MG, TROPI #### [facility] [address] [place] [address] Color Paste Mixer: Herman Ashley MD BUN/CRE Ratio 13 Normal 9-20 [facility] Comment on above: Performed By: #### C DP, BMP, MG, TROPI #### [facility] [address] [place] [address] Color Paste Mixer: Herman Ashley MD Calcium [Mass/Vol] 9.3 mg/dL Normal 8.6-10.4 [facility] Comment on above: Performed By: #### C DP, BMP, MG, TROPI #### [facility] [address] [place] [address] Color Paste Mixer: Herman Ashley MD Chloride [Moles/Vol] 105 mmol/L Normal 98-107 [facility] Comment on above: Performed By: #### C DP, BMP, MG, TROPI #### [facility] [address] [place] [address] Color Paste Mixer: Herman Ashley MD CO2 [Moles/Vol] 22 mmol/L Normal 20-31 [facility] Comment on above: Performed By: #### C DP, BMP, MG, TROPI #### [facility] [address] [place] [address] Color Paste Mixer: Herman Ashley MD Creatinine [Mass/Vol] 0.6 mg/dL Normal 0.5-0.9 [facility] Comment on above: Performed By: #### C DP, BMP, MG, TROPI #### [facility] [address] [place], [place] [id number] Color Paste Mixer: Herman Ashley MD GFR/1.73 sq M.predicted among non-blacks MDRD (S/P/Bld) [Vol rate/Area] mL/min/{1.73_m2} Normal >60 [facility] Comment on above: Result Comment: These results are not intended [...] following therapy that affects renal tubular secretion. Performed By: #### C DP, BMP, MG, TROPI #### [address] [place], [place] [id number] Color Paste Mixer: Herman Ashley MD Glucose [Mass/Vol] 84 mg/dL Normal 70-99 [facility] Comment on above: Performed By: #### C DP, BMP, MG, TROPI #### [address] [place] [address] Color Paste Mixer: Herman Ashley MD Potassium [Moles/Vol] 3.6 mmol/L Low 3.7-5.3 [facility] Comment on above: Performed By: #### C DP, BMP, MG, TROPI #### [address] [place] [address] Color Paste Mixer: Herman Ashley MD Sodium [Moles/Vol] 140 mmol/L Normal 135-144 [facility] Comment on above: Performed By: #### C DP, BMP, MG, TROPI #### [address] [place] [address] Color Paste Mixer: Herman Ashley MD Urea nitrogen [Mass/Vol] 8 mg/dL Normal 6-20 [facility] [facility] [place] Comment on above: Performed By: #### C DP, BMP, MG, TROPI #### [address] [place] [address] Color Paste Mixer: Herman Ashley MD CBC with Diffon 10-06-2023 Abs. Basophil 0.08 k/uL Normal 0.00-0.20 [facility] Comment on above: Performed By: #### C DP, BMP, MG, TROPI #### [address] [place], [place] [id number] Color Paste Mixer: Herman Ashley MD Abs.Imm.Granulocyte <0.03 Normal 0.00-0.30 [facility] [place] Comment on above: Performed By: #### C DP, BMP, MG, TROPI #### [address] [place] [address] Color Paste Mixer: Herman Ashley MD Abs.Neutrophil (Seg) 4.53 k/uL Normal 1.50-8.10 [facility] Comment on above: Performed By: #### C DP, BMP, MG, TROPI #### [address] [place] [address] Color Paste Mixer: Herman Ashley MD Basophils/100 WBC (Bld) 1 % Normal 0-2 [facility] [place] Comment on above: Performed By: #### C DP, BMP, MG, TROPI #### [address] [place] [address] Color Paste Mixer: Herman Ashley MD Eosinophils (Bld) [#/Vol] 0.15 10*3/uL Normal 0.00-0.44 [facility] [place] Comment on above: Performed By: #### C DP, BMP, MG, TROPI #### [address] [place] [address] Color Paste Mixer: Herman Ashley MD Eosinophils/100 WBC (Bld) 2 % Normal 1-4 [facility] [place] Comment on above: Performed By: #### C DP, BMP, MG, TROPI #### [address] [place] [address] Color Paste Mixer: Herman Ashley MD Erythrocyte distribution width (RBC) [Ratio] 11.9 % Normal 11.8-14.4 [facility] [place] Comment on above: Performed By: #### C DP, BMP, MG, TROPI #### [address] [place] [address]83 Color Paste Mixer: Herman Ashley MD Hematocrit (Bld) [Volume fraction] 42.5 % Normal 36.3-47.1 [facility] [place] Comment on above: Performed By: #### C DP, BMP, MG, TROPI #### [facility] [address] [place] [address] Color Paste Mixer: Herman Ashley MD Hemoglobin (Bld) [Mass/Vol] 14.7 g/dL Normal 11.9-15.1 [facility] [place] Comment on above: Performed By: #### C DP, BMP, MG, TROPI #### [facility] [address] [place] [address]8583 Color Paste Mixer: Herman Ashley MD Immature granulocytes/100 WBC (Bld) 0 % Normal 0 [facility] [place] Comment on above: Performed By: #### C DP, BMP, MG, TROPI #### [address] [place] [address] Color Paste Mixer: Herman Ashley MD Lymphocytes (Bld) [#/Vol] 3.59 10*3/uL Normal 1.10-3.70 [facility] [place] Comment on above: Performed By: #### C DP, BMP, MG, TROPI #### [address] [place], [facility]83 Color Paste Mixer: Herman Ashley MD Lymphocytes/100 WBC (Bld) 39 % Normal 24-43 [facility] [place] Comment on above: Performed By: #### C DP, BMP, MG, TROPI #### [facility] [address] [place], [facility]83 Color Paste Mixer: Herman Ashley MD MCH (RBC) [Entitic mass] 30.7 pg Normal 25.2-33.5 [facility] [place] Comment on above: Performed By: #### C DP, BMP, MG, TROPI #### [facility] [address] [place] [address]8583 Color Paste Mixer: Herman Ashley MD MCHC (RBC) [Mass/Vol] 34.6 g/dL Normal 28.4-34.8 [facility] [place] Comment on above: Performed By: #### C DP, BMP, MG, TROPI #### [facility] [address] [place], [place] 5919383 Color Paste Mixer: Herman Ashley MD MCV (RBC) [Entitic vol] 88.7 fL Normal 82.6-102.9 [facility] [place] Comment on above: Performed By: #### C DP, BMP, MG, TROPI #### [facility] [address] [place], [place] 838[address]83 Color Paste Mixer: Herman Ashley MD Monocytes (Bld) [#/Vol] 0.89 10*3/uL Normal 0.10-1.20 [facility] [place] Comment on above: Performed By: #### C DP, BMP, MG, TROPI #### [facility] [address] [place] [address] [place] [address] Color Paste Mixer: Herman Ashley MD Monocytes/100 WBC (Bld) 10 % Normal 3-12 [facility] [place] Comment on above: Performed By: #### C DP, BMP, MG, TROPI #### [address] [place], [place] 2678383 Color Paste Mixer: Herman Ashley MD Neutrophil (Seg) 48 % Normal 36-65 [facility] Comment on above: Performed By: #### C DP, BMP, MG, TROPI #### [facility] [address] [place], [place] 3149283 Color Paste Mixer: Herman Ashley MD NRBC Automated 0.0 per 100 WBC Normal 0.0 [facility] [place] Comment on above: Performed By: #### C DP, BMP, MG, TROPI #### [facility] [address] [place] [address] Color Paste Mixer: Herman Ashley MD Platelet mean volume (Bld) [Entitic vol] 12.1 fL Normal 8.1-13.5 [facility] [place] Comment on above: Performed By: #### C DP, BMP, MG, TROPI #### [facility] [address] [place], [place] 523[address]83 Color Paste Mixer: Herman Ashley MD Platelets (Bld) [#/Vol] 243 10*3/uL Normal 138-453 [facility] [place] Comment on above: Performed By: #### C DP, BMP, MG, TROPI #### [facility] [address] [place] [address] Color Paste Mixer: Herman Ashley MD RBC (Bld) [#/Vol] 4.79 10*6/uL Normal 3.95-5.11 [facility] [place] Comment on above: Performed By: #### C DP, BMP, MG, TROPI #### [address] [place] [address] Color Paste Mixer: Herman Ashley MD WBC (Bld) [#/Vol] 9.3 10*3/uL Normal 3.5-11.3 [facility] [place] Comment on above: Performed By: #### C DP, BMP, MG, TROPI #### [address] [place] [address] Color Paste Mixer: Herman Ashley MD Magnesiumon 10-06-2023 Magnesium [Mass/Vol] 2.0 mg/dL Normal 1.6-2.6 [facility] Comment on above: Performed By: #### C DP, BMP, MG, TROPI #### [facility] [address] [place], [place] 5006383 Color Paste Mixer: Herman Ashley MD Troponinon 10-06-2023 Troponin, High Sens 6 ng/L Normal 0-14 [facility] [place] Comment on above: Result Comment: High Sensitivity Troponin values cannot be compared with other Troponin methodologies. Performed By: #### C DP, BMP, MG, TROPI #### [facility] [address] [place] [place] [address] Color Paste Mixer: Herman Ashley MD XR CHEST PORTABLEon 10-06-19 24 XR CHEST PORTABLE EXAMINATION: ONE XRAY VIEW OF THE CHEST 10/06/2023 1:16 pm COMPARISON: None. HISTORY: ORDERING SYSTEM PROVIDED HISTORY: cp TECHNOLOGIST PROVIDED HISTORY: cp FINDINGS: The lungs are without acute focal process. There is no effusion or pneumothorax. The cardiomediastinal silhouette is without acute process. The osseous structures are without acute process. IMPRESSION: No acute process. Interpreted by: Jeevan Chamberlain MD Signed by: Jeevan Chamberlain MD 10/06/23 Final result Normal [facility] [place] H PYLORI SCREENon 06-27-2023 H. pylori Org specific cx Ql (Sam fld) Negative Normal NEG [facility] Comment on above: Performed By: #### 4 4015-6 #### [facility] ([id number]) [address] [place] [address] [address] [place] [address] Surgical Pathologyon 024 Surgical Pathology Normal [facility] Comment on above: Result Comment: [facility] [address] [place] [address] Surgical Pathology Consultation Patient Name:JAYE DOSS:1990 (Age: 33)Gender:FTaken:4Reported:06/29/2023hysician(s):Jessika Schultz D.O. ([phone])Copy To: Rec. #:[id number]: #[id number] Final Pathologic Diagnosis 1. Antrum biopsy: Gastric antral mucosa with no significant histopathologic changes. No active inflammation, intestinal metaplasia or dysplasia. No Helicobacter pylori organisms are seen on routine sections. 2. Distal esophageal biopsy: Squamous mucosa and gastric type mucosa with no significant histopathologic changes. No eosinophilic esophagitis, intestinal metaplasia or dysplasia. 3. Descending colon polyp; polypectomy: Tubular adenoma. Report Electronically Signed Out wak/06/29/2023Tate Byrnes MD Interpretation performed at [facility], [address] [place] [address], License number: [id number]. Clinical History Rectal bleeding, diarrhea, melena, hemoptysis, nausea. Gross Description 1. Received in formalin labeled, SELAM, antrum are 2 chau delicate soft tissue bits, 0.1 and 0.4 cm in greatest dimension. The specimens are filtered and submitted in a single cassette. (1, ns, [id number], m8) TB 2. Received in formalin labeled, SELAM, distal esophagus are 6 chau delicate soft tissue bits, 0.1-0.3 cm in greatest dimension. The specimens are filtered and submitted in a single cassette. (1, ns, [id number], m8) TB 3. Received in formalin labeled, SELAM, descending is a chau delicate soft tissue bit, 0.6 cm in greatest dimension. The specimen is filtered and submitted in a single cassette. (1, ns, [id number], m8) TB tgb/06/28/2023EAK Specimen(s) Received 1: Antrum biopsy 2: Distal esopahgeal biopsy 3: Descending colon polyp Fee Codes(s): 1; 28572 2; 73145 3; 01007 CBC AND AUTO DIFFon 06-09-19 24 ABSOLUTE BASOPHIL 0.1 X10E9/L Normal 0.0-0.2 [facility] Comment on above: Performed By: #### C HEATHER CHARLES, 304 #### [facility] ([id number]) [address] [place] [address] 47979 ABSOLUTE NEUTROPHIL 5.3 X10E9/L Normal 1.5-6.6 [facility] Comment on above: Performed By: #### C HEATHER CHARLES, 304 #### [facility] ([id number]) [address] [place] [address] 26285 Basophils/100 WBC (Bld) 0.6 % Normal [facility] Comment on above: Performed By: #### C HEATHER CHARLES, 3039-07 #### [facility] ([id number]) [address] [place] [address] 86377 Eosinophils (Bld) [#/Vol] 0.3 10*3/uL Normal 0.0-0.4 [facility] Comment on above: Performed By: #### Asia CHARLES CMP, 3039-3 #### [facility] ([id number]) [address] [place] [address] 26901 Eosinophils/100 WBC (Bld) 3.1 % Normal [facility] Comment on above: Performed By: #### Asia CHARLES CMP, 3039-07 #### [facility] ([id number]) [address] [place] [address] 56544 Erythrocyte distribution width (RBC) [Ratio] 13.1 % Normal 11.5-15.0 [facility] Comment on above: Performed By: #### Asia CHARLES CMP, 3 #### [facility] ([id number]) [address] [place] [address] 23791 Hematocrit (Bld) [Volume fraction] 39.6 % Normal 35-47 [facility] Comment on above: Performed By: #### Asia CHARLES CMP, 3039-07 #### [facility] ([id number]) [address] [place] [address] 44812 Hemoglobin (Bld) [Mass/Vol] 13.6 g/dL Normal 11.7-15.5 [facility] Comment on above: Performed By: #### Asia CHARLES CMP, 3 #### [facility] ([id number]) [address] [place] [address] 03182 Lymphocytes (Bld) [#/Vol] 3.2 10*3/uL Normal 1.0-3.5 [facility] Comment on above: Performed By: #### Asia CHARLES CMP, 3 #### [facility] ([id number]) [address] [place] [address] 76395 Lymphocytes/100 WBC (Bld) 34.0 % Normal [facility] Comment on above: Performed By: #### Asia CHARLES CMP, 3039- #### [facility] ([id number]) [address] [place] [address] 10673 MCH (RBC) [Entitic mass] 31.0 pg Normal 27-34 [facility] Comment on above: Performed By: #### Asia CHARLES CMP, 3039-07 #### [facility] ([id number]) [address] [place] [address] 19431 MCHC (RBC) [Mass/Vol] 34.3 g/dL Normal 32-36 [facility] Comment on above: Performed By: #### Asia CHARLES CMP, 3039-07 #### [facility] ([id number]) [address] [place] [address] 94966 MCV (RBC) [Entitic vol] 90 fL Normal 80-100 [facility] Comment on above: Performed By: #### Asia CHARLES CMP, 3039-07 #### [facility] ([id number]) [address] [place] [address] 78657 Monocytes (Bld) [#/Vol] 0.7 10*3/uL Normal 0-0.9 [facility] Comment on above: Performed By: #### Asia CHARLES CMP, 3039-07 #### [facility] ([id number]) [address] [place] [address] 40604 Monocytes/100 WBC (Bld) 6.8 % Normal [facility] Comment on above: Performed By: #### Asia CHARLES CMP, 3039-07 #### [facility] ([id number]) [address] [place] [address] 86881 Neutrophils/100 WBC (Bld) 55.5 % Normal [facility] Comment on above: Performed By: #### Asia CHARLES CMP, 3039-3 #### [facility] ([id number]) [address] [place] [address] 67936 Platelet mean volume (Bld) [Entitic vol] 10.0 fL Normal 7-12 [facility] Comment on above: Performed By: #### Asia CHARLES CMP, 3039-3 #### [facility] ([id number]) [address] [place] [address] 51193 Platelets (Bld) [#/Vol] 253 10*3/uL Normal 150-450 [facility] Comment on above: Performed By: #### Asia CHARLES CMP, 3 #### [facility] ([id number]) [address] [place] [address] 46860 RBC COUNT 4.39 X10E12/L Normal 3.80-5.20 [facility] Comment on above: Performed By: #### Asia CHARLES CMP, 3039-3 #### [facility] ([id number]) [address] [place] [address] 36875 WBC (Bld) [#/Vol] 9.5 10*3/uL Normal 4.0-11.0 [facility] Comment on above: Performed By: #### Asia CHARLES CMP, 3039-3 #### [facility] ([id number]) [address] [place] [address] 03303 COMPREHENSIVE METABOLIC PANE Jerardo 06-09-2023 Albumin [Mass/Vol] 4.3 g/dL Normal 3.2-5.3 [facility] Comment on above: Performed By: #### Asia CHARLES CMP, 3039-3 #### [facility] ([id number]) [address] [place] [address] 03190 ALP [Catalytic activity/Vol] 71 U/L Normal 39-130 [facility] Comment on above: Performed By: #### C BCA, CMP, 3039-3 #### [facility] ([id number]) [address] [place] [address] 85360 ALT [Catalytic activity/Vol] 50 U/L High 0-31 [facility] Comment on above: Performed By: #### C BCA, CMP, 3039-3 #### [facility] ([id number]) [address] [place] [address] [place] [address] Anion gap [Moles/Vol] 10 mmol/L Normal 5-15 [facility] Comment on above: Performed By: #### C BCA, CMP, 3 #### [facility] ([id number]) [address] [place] [address] 36861 AST [Catalytic activity/Vol] 43 U/L High 0-41 [facility] Comment on above: Performed By: #### C BCA, CMP, 3 #### [facility] ([id number]) [address] [place] [address] [place] [address] Bilirubin [Mass/Vol] 0.6 mg/dL Normal 0.3-1.2 [facility] Comment on above: Performed By: #### C BCA, CMP, 3039-3 #### [facility] ([id number]) [address] [place] [address] 10178 Calcium [Mass/Vol] 9.2 mg/dL Normal 8.5-10.5 [facility] Comment on above: Performed By: #### C BCA, CMP, 3039-3 #### [facility] ([id number]) [address] [place] [address] 35639 Chloride [Moles/Vol] 107 mmol/L Normal 98-109 [facility] Comment on above: Performed By: #### C BCA, CMP, 3039-3 #### [facility] ([id number]) [address] [place] [address] 63649 CO2 [Moles/Vol] 22 mmol/L Normal 22-32 [facility] Comment on above: Performed By: #### C HEATHER CHARLES, 3040-3 #### [facility] ([id number]) [address] [place] [address] 32701 Creatinine [Mass/Vol] 0.59 mg/dL Normal 0.40-1.00 [facility] Comment on above: Result Comment: METH OD TRACEABLE TO IDMS STANDARD Performed By: #### C HEATHER CHARLES, 3039-3 #### [facility] ([id number]) [address] [place] [address] 94691 eGFR (CKD-EPI) NON-RACE DEPENDENT >90 Normal >59 [facility] Comment on above: Result Comment: Reported eGFR is based on the CKD-EPI 2020 equation that does not use a race coefficient. Performed By: #### C HEATHER CHARLES, 3 #### [facility] ([id number]) [address] [place] [address] 26934 Glucose [Mass/Vol] 178 mg/dL High 65-99 [facility] Comment on above: Performed By: #### Asia CHARLES CMP, 3039-3 #### [facility] ([id number]) [address] [place] [address] 35259 Potassium [Moles/Vol] 3.3 mmol/L Low 3.5-5.0 [facility] Comment on above: Performed By: #### C HEATHER CHARLES, 3039-3 #### [facility] ([id number]) [address] [place] [address] 07218 Protein [Mass/Vol] 7.7 g/dL Normal 6.0-8.0 [facility] Comment on above: Performed By: #### Asia CHARLES CMP, 0-3 #### [facility] ([id number]) [address] [place] [address] Sodium [Moles/Vol] 139 mmol/L Normal 134-146 [facility] Comment on above: Performed By: #### C ARACELI [facility], 3040-3 #### [facility] ([id number]) [address] [place] [address] Urea nitrogen [Mass/Vol] mg/dL Low 5-23 [facility] Comment on above: Performed By: #### C ARACELI, [facility], 3040-3 #### [facility] ([id number]) [address] [place] [address] CT ABDOMEN AND PELVIS W CONT on 06-09-2023 CT ABDOMEN AND PELVIS W CONT CT ABDOMEN AND PELVIS W CONT ABDOMEN AND PELVIS CT WITH CONTRAST HISTORY: Hematemesis, bloody stool COMPARISON: CT abdomen and pelvis 04/17/2019 TECHNIQUE: CT abdomen and pelvis was performed. Axial images were obtained following the uneventful administration of 100 cc Omnipaque 300 nonionic intravenous contrast. Coronal and sagittal reformatted images were obtained and reviewed. Automated exposure control was utilized. FINDINGS: Lung bases demonstrate no significant airspace consolidation. No pleural fluid collection. Visible heart is within normal limits. Low-attenuation liver compatible with steatosis. No biliary ductal dilatation. Gallbladder is unremarkable. Portal vein is patent. Pancreas, spleen and adrenal glands are within normal limits. Symmetric renal enhancement. No hydronephrosis or perinephric fluid collection. Unremarkable bladder. Absent uterus. No adnexal mass. Bowel demonstrates no obstruction or acute inflammatory change. Normal appendix. No free air or fluid. No mesenteric lymphadenopathy. Mesenteric vessels are patent. Normal caliber aorta and iliac arteries. Right-sided IVC. No retroperitoneal or pelvic lymphadenopathy. No acute osseous abnormality. IMPRESSION: * No acute pathologic process. * Hepatic steatosis. All CT scans at this facility use dose modulation, iterative reconstruction, and/or weight based dosing when appropriate to reduce radiation dose to as low as reasonably achievable. Finalized by Migue Rivera MD on 06/09/2023 2:39 PM Normal [facility] LIPASEon 06-09-2023 Lipase [Catalytic activity/Vol] 26 U/L Normal 17-40 [facility] Comment on above: Performed By: #### C BCA, [facility], 3040-3 #### [facility] ([id number]) [address] [place] [address], [place] [address] CBC AUTO DIFFon 08-06-2022 BASO # 0.1 103/ul Normal 0.0-0.1 [facility] Comment on above: Performed By: #### C BC #### [facility] [address] [place] [address] Dr. Tatianna Grissom Basophils/100 WBC (Bld) 0.5 % Normal 0.2-2.0 [facility] Comment on above: Performed By: #### C BC #### [facility] [address] [place] [address] Dr. Tatianna Grissom EO # 0.3 103/ul Normal 0.0-0.7 [facility] Comment on above: Performed By: #### C BC #### [facility] [address] [place] [address] Dr. Tatianna Grissom Eosinophils/100 WBC (Bld) 3.3 % Normal 0.9-7.0 [facility] Comment on above: Performed By: #### C BC #### [facility] [address] [place] [address] Dr. Tatianna Grissom Erythrocyte distribution width (RBC) [Ratio] 12.2 % Normal 11.0-15.0 [facility] Comment on above: Performed By: #### C BC #### [facility] [address] [place] [address] Dr. Tatianna Grissom Hematocrit (Bld) [Volume fraction] 38.6 % Normal 36.0-48.0 [facility] Comment on above: Performed By: #### C BC #### [facility] [address] [place] [address] Dr. Tatianna Grissom Hemoglobin (Bld) [Mass/Vol] 13.1 g/dL Normal 12.0-16.0 [facility] Comment on above: Performed By: #### C BC #### [facility] [address] [place] [address] Dr. Tatianna Grissom IG # 0.05 10e3/ul Critically high 0.00-0.03 [facility] Comment on above: Performed By: #### C BC #### [facility] [address] [place] [address] Dr. Tatianna Grissom IG % 0.5 % Normal 0.0-0.5 [facility] Comment on above: Performed By: #### C BC #### [facility] [address] [place] [address] Dr. Tatianna Grissom LYMPH # 2.6 103/ul Normal 1.2-3.8 [facility] Comment on above: Performed By: #### C BC #### [facility] [address] [place] [address] Dr. Tatianna Grissom Lymphocytes/100 WBC (Bld) 27.4 % Normal 20.5-60.0 [facility] Comment on above: Performed By: #### C BC #### [facility] [address] [place] [address] Dr. Tatianna Grissom MANUAL DIFF REQ NO Normal [facility] Comment on above: Performed By: #### C BC #### [facility] [address] [place] [address] Dr. Tatianna Grissom MCH (RBC) [Entitic mass] 30.6 pg Normal 26.7-34.0 [facility] Comment on above: Performed By: #### C BC #### [facility] [address] [place] [address] Dr. Tatianna Grissom MCHC (RBC) [Mass/Vol] 33.9 g/dL Normal 29.9-35.2 [facility] Comment on above: Performed By: #### C BC #### [facility] [address] [place] [address] Dr. Tatianna Grissom MCV (RBC) [Entitic vol] 90.2 fL Normal 81.0-99.0 [facility] Comment on above: Performed By: #### C BC #### [facility] [address] [place] [address] Dr. Tatianna Grissom MONO # 0.6 103/ul Normal 0.3-0.8 [facility] Comment on above: Performed By: #### C BC #### [facility] [address] [place] [address] Dr. Tatianna Grissom Monocytes/100 WBC (Bld) 6.6 % Normal 1.7-12.0 [facility] Comment on above: Performed By: #### C BC #### [facility] [address] [place] [address] Dr. Tatianna Grissom NEUT # 5.8 103/ul Normal 1.4-6.5 [facility] Comment on above: Performed By: #### C BC #### [facility] [address] [place] [address] Dr. Tatianna Grissom Neutrophils/100 WBC (Bld) 61.7 % Normal 43.0-75.0 [facility] Comment on above: Performed By: #### C BC #### [facility] [address] [place] [address] Dr. Tatianna Grissom Platelet mean volume (Bld) [Entitic vol] 10.4 fL Normal 9.5-13.5 [facility] Comment on above: Performed By: #### C BC #### [facility] [address] [place] [address] Dr. Tatianna Grissom PLT 287 103/ul Normal 150-450 [facility] Comment on above: Performed By: #### C BC #### [facility] [address] [place] [address] Dr. Tatianna Grissom RBC 4.28 106/ul Normal 4.20-5.40 [facility] Comment on above: Performed By: #### C BC #### [facility] [address] [place] [address] Dr. Tatianna Grissom WBC 9.4 103/ul Normal 4.0-11.0 [facility] Comment on above: Performed By: #### C BC #### [facility] [address] [place] [address] Dr. Tatianna Grissom PREG QUANT HCGon 08-06-2022 HCG QUANT <1 Normal [facility] Comment on above: Performed By: #### B MP, PREGQNT #### [facility] [address] [place] [address] Dr. Tatianna Grissom HCG RANGE SEE BELOW Normal [facility] Comment on above: Result Comment: 5-50 0.2-1 WEEK 50-500 1-2 WEEKS 100-5,000 2-3 WEEKS 500-10,000 3-4 WEEKS 1,000-50,000 4-5 WEEKS 10,000-100,000 5-6 WEEKS 15,000-200,000 6-8 WEEKS 10,000-100,000 2-3 MONTHS Performed By: #### B RADHA, PREGQNT #### [facility] [address] [place] [address] Dr. Tatianna Grissom PROF CHEM 8 (BAS METB)on Anion gap [Moles/Vol] 14.1 mmol/L Normal [facility] Comment on above: Performed By: #### B RADHA PREGQNT #### [facility] [address] [place] [address] Dr. Tatianna Grissom Calcium [Mass/Vol] 8.9 mg/dL Normal 8.5-10.1 [facility] Comment on above: Performed By: #### B RADHA PREGQNT #### [facility] [address] [place] [address] Dr. Tatianna Grissom Chloride [Moles/Vol] 108 mmol/L Critically high 98-107 [facility] Comment on above: Performed By: #### B RADHA PREGQNT #### [facility] [address] [address] [address] Tatianna Grissom CO2 [Moles/Vol] 22.9 mmol/L Normal 21.0-32.0 [facility] Comment on above: Performed By: #### B RADHA PREGQNT #### [facility] [address] [place] [address] Dr. Tatianna Grissom Creatinine [Mass/Vol] 0.52 mg/dL Critically low 0.55-1.02 [facility] Comment on above: Performed By: #### B RADHA, PREGQNT #### [facility] [address] [place] [address] Dr. Tatianna Grissom EGFR-AF CYMRAES >60 Normal >=60 [facility] Comment on above: Performed By: #### B RADHA, PREGQNT #### [facility] [address] [address] [address] Tatianna Grissom EGFR-NON AF CYMRAES >60 Normal >=60 [facility] Comment on above: Performed By: #### B RADHA, PREGQNT #### [facility] [address] [place] [address] Dr. Tatianna Grissom Glucose [Mass/Vol] 111 mg/dL Critically high 74-[address] [facility] Comment on above: Performed By: #### B RADHA, PREGQNT #### [facility] [address] [place] [address] Dr. Tatianna Grissom Potassium [Moles/Vol] 4.0 mmol/L Normal 3.5-5.1 [facility] Comment on above: Performed By: #### B RADHA, PREGQNT #### [facility] [address] [place] [address] Dr. Tatianna Grissom Sodium [Moles/Vol] 141 mmol/L Normal 136-145 [facility] Comment on above: Performed By: #### B RADHA, PREGQNT #### [facility] [address] [place] [address] Dr. Tatianna Grissom Urea nitrogen [Mass/Vol] 5.0 mg/dL Critically low 7.0-18.0 [facility] Comment on above: Performed By: #### B RADHA, PREGQNT #### [facility] [address] [place] [address] Dr. Tatianna Grissom Urea nitrogen/Creatinine [Mass ratio] 9.6 mg/mg Normal [facility] Comment on above: Performed By: #### B RADHA, PREGQNT #### [facility] [address] [place] [address] Dr. Tatianna Grissom XR CHEST 2 Von 07-23-2022 XR CHEST 2 V EXAM: XR CHEST 2 V HISTORY: Electronic cigarette user COMPARISON: None. TECHNIQUE: PA and lateral views of the chest. FINDINGS: The cardiomediastinal silhouette is normal. No focal consolidation is identified. There is no pneumothorax. No pleural effusion is noted. The osseous structures are intact. IMPRESSION: No acute cardiopulmonary process. Electronically authenticated by: EDE DC Date: 2022-07-23 11:16 Normal [facility] PAP ACOG PANEL 2: 30 to 65on 07-07-2022 . . Normal [facility] Comment on above: Result Comment: Perf ormed at: WB Performed By: #### [id number] ####[facility] [address] [address]DrThang Grissom Age Gdln ACOG Testing 30-65 Normal [facility] Comment on above: Performed By: #### 4 [id number] ####[facility] [address] [place], [place] [address]DrThang Grissom DIAGNOSIS: Comment Normal [facility] Comment on above: Result Comment: NEGA TIVE FOR INTRAEPITHELIAL LESION OR MALIGNANCY. Performed at: WB Performed By: #### 4 [id number] ####[facility] [address] [place], [place] [address]DrThang Grissom HPV Aptima Negative Normal Negative [facility] Comment on above: Result Comment: This nucleic acid amplification test detects fourteen high-risk HPV types (16,18,31,33,35,39,45,51,52,56,58,59,66,68) without differentiation. Performed at: =G Performed By: #### 4 [id number] ####[facility] [address] [place], [place] [address]DrThang Grissom HPV Genotype Reflex Comment Normal [facility] Comment on above: Result Comment: Crit eria not met, HPV Genotype not performed. Performed at: WB Performed By: #### 4 [id number] ####[facility] [address] [place], [place] [address]DrThang Grissom Methodology: Comment Normal [facility] Comment on above: Result Comment: This liquid based ThinPrep(R) pap test was screened with the use of an image guided system. Performed at: WB Performed By: #### 4 [id number] ####[facility] [address] [place], [place] [address]DrThang Grissom Note: Comment Normal [facility] Comment on above: Result Comment: The Pap smear is a screening test designed to aid in the detection of premalignant and malignant conditions of the uterine cervix. It is not a diagnostic procedure and should not be used as the sole means of detecting cervical cancer. Both false-positive and false-negative reports do occur. . Performed at: WB Performed By: #### 4 [id number] ####[facility] [address] [address]DrThang Grissom Performed by: Comment Normal [facility] Comment on above: Result Comment: Michelle Chinchilla, Hand Shaker (ASCP) Performed at: WB Performed By: #### 4 [id number] ####[facility] [address] [place], [place] [address]DrThang Grissom Specimen adequacy: Comment Normal [facility] Comment on above: Result Comment: Sati sfactory for evaluation. Endocervical and/or squamous metaplastic cells (endocervical component) are present. Performed at: WB Performed By: #### 4 [id number] ####[facility] [address] [address]DrThang Grissom CBC AUTO DIFFon 06-15-2022 BASO # 0.1 103/ul Normal 0.0-0.1 [facility] Comment on above: Performed By: #### C BC #### [facility] [address] [place] [address] Dr. Tatianna Grissom Basophils/100 WBC (Bld) 0.7 % Normal 0.2-2.0 [facility] Comment on above: Performed By: #### C BC #### [facility] [address] [address] [address] Tatianna Grissom EO # 0.3 103/ul Normal 0.0-0.7 [facility] Comment on above: Performed By: #### C BC #### [facility] [address] [place] [address] Dr. Tatianna Grissom Eosinophils/100 WBC (Bld) 2.6 % Normal 0.9-7.0 [facility] Comment on above: Performed By: #### C BC #### [facility] [address] [address] [address] Tatianna Grissom Erythrocyte distribution width (RBC) [Ratio] 11.9 % Normal 11.0-15.0 [facility] Comment on above: Performed By: #### C BC #### [facility] [address] [place] [address] Dr. Tatianna Grissom Hematocrit (Bld) [Volume fraction] 39.2 % Normal 36.0-48.0 [facility] Comment on above: Performed By: #### C BC #### [facility] [address] [place] [address] Dr. Tatianna Grissom Hemoglobin (Bld) [Mass/Vol] 13.3 g/dL Normal 12.0-16.0 [facility] Comment on above: Performed By: #### C BC #### [facility] [address] [place] [address] Dr. Tatianna Grissom IG # 0.06 10e3/ul Critically high 0.00-0.03 [facility] Comment on above: Performed By: #### C BC #### [facility] [address] [place] [address] Dr. Tatianna Grissom IG % 0.6 % Critically high 0.0-0.5 [facility] Comment on above: Performed By: #### C BC #### [facility] [address] [place] [address] Dr. Tatianna Grissom LYMPH # 3.1 103/ul Normal 1.2-3.8 [facility] Comment on above: Performed By: #### C BC #### [facility] [address] [place] [address] Dr. Tatianna Grissom Lymphocytes/100 WBC (Bld) 30.7 % Normal 20.5-60.0 [facility] Comment on above: Performed By: #### C BC #### [facility] [address] [place] [address] Dr. Tatianna Grissom MANUAL DIFF REQ NO Normal The [facility] Comment on above: Performed By: #### C BC #### [facility] [address] [place] [address] Dr. Tatianna Grissom MCH (RBC) [Entitic mass] 30.9 pg Normal 26.7-34.0 [facility] Comment on above: Performed By: #### C BC #### [facility] [address] [place] [address] Dr. Tatianna Grissom MCHC (RBC) [Mass/Vol] 33.9 g/dL Normal 29.9-35.2 [facility] Comment on above: Performed By: #### C BC #### [facility] [address] [place] [address] Dr. Tatianna Grissom MCV (RBC) [Entitic vol] 91.0 fL Normal 81.0-99.0 [facility] Comment on above: Performed By: #### C BC #### [facility] [address] [place] [address] Dr. Tatianna Grissom MONO # 0.7 103/ul Normal 0.3-0.8 [facility] Comment on above: Performed By: #### C BC #### [facility] [address] [place] [address] Dr. Tatianna Grissom Monocytes/100 WBC (Bld) 6.8 % Normal 1.7-12.0 [facility] Comment on above: Performed By: #### C BC #### [facility] [address] [place] [address] Dr. Tatianna Grissom NEUT # 5.9 103/ul Normal 1.4-6.5 [facility] Comment on above: Performed By: #### C BC #### [facility] [address] [place] [address] Dr. Tatianna Grissom Neutrophils/100 WBC (Bld) 58.6 % Normal 43.0-75.0 [facility] Comment on above: Performed By: #### C BC #### [facility] [address] [place] [address] Dr. Tatianna Grissom Platelet mean volume (Bld) [Entitic vol] 10.5 fL Normal 9.5-13.5 [facility] Comment on above: Performed By: #### C BC #### [facility] [address] [address] [address] Tatianna Grissom PLT 315 103/ul Normal 150-450 [facility] Comment on above: Performed By: #### C BC #### [facility] [address] [address] [address] Tatianna Grissom RBC 4.31 106/ul Normal 4.20-5.40 [facility] Comment on above: Performed By: #### C BC #### [facility] [address] [address] [address] Tatianna Grissom WBC 10.0 103/ul Normal 4.0-11.0 [facility] Comment on above: Performed By: #### C BC #### [facility] [address] [place] [address] Dr. Tatianna Grissom FREE T4on 06-15-2022 Free T4 [Mass/Vol] 0.71 ng/dL Critically low 0.76-1.46 [facility] Comment on above: Performed By: #### F T4 #### [facility] [address] [address] [address] Tatianna Grissom GLYCOHEMOGLOBIN A1Con 2022 ADA RECOMMENDATION SEE BELOW Normal [facility] Comment on above: Result Comment: ADA RECOMMENDED LIMIT 4.0 - 6.0 ADA THERAPEUTIC TARGET < 7.0 ACTION SUGGESTED > 7.0 Performed By: #### A 1C ####[facility] [address] [address]DrThang Grissom Glucose [Mass/Vol] 105 mg/dL Normal [facility] Comment on above: Performed By: #### A 1C ####[facility] [address] [address]Dr. Tatianna Grissom HbA1c (Bld) [Mass fraction] 5.3 % Normal 4.5-6.2 [facility] Comment on above: Performed By: #### A 1C ####[facility] [address] [address]Dr. Tatianna Grissom PREG QUANT HCGon 06-15-2022 HCG QUANT <1 Normal [facility] Comment on above: Performed By: #### T SH, PREGQNT #### [facility] [address] [address] [address] Tatianna Grissom HCG RANGE SEE BELOW Normal [facility] Comment on above: Result Comment: 5-50 0.2-1 WEEK 50-500 1-2 WEEKS 100-5,000 2-3 WEEKS 500-10,000 3-4 WEEKS 1,000-50,000 4-5 WEEKS 10,000-100,000 5-6 WEEKS 15,000-200,000 6-8 WEEKS 10,000-100,000 2-3 MONTHS Performed By: #### T SH, PREGQNT #### [facility] [address] [address] [address] Tatianna Grissom PROTIMEon 06-15-2022 INR Coag (PPP) [Relative time] 0.95 {INR} Normal [facility] Comment on above: Performed By: #### P T, PTT ####[facility] [address] [address]Dr. Tatianna Grissom INR GUIDELINES SEE BELOW Normal [facility] Comment on above: Result Comment: REBEKAH RED INR: 2.0 - 3.0 CONDITIONS NOT LISTED BELOW 2.5 - 3.5 FOR PROSTHETIC HEART VALVE REPLACEMENT 2.5 - 3.5 RECURRENT THROMBOSIS Performed By: #### P T, PTT ####[facility] [address] [address]Dr. Tatianna Grissom PT Coag (PPP) [Time] 10.1 s Normal 9.0-11.6 [facility] Comment on above: Performed By: #### P T, PTT ####[facility] [address] [id number] Grissom PTTon 06-15-2022 aPTT Coag (Bld) [Time] 28.8 s Normal 22.3-36.2 [facility] Comment on above: Performed By: #### P T, PTT ####[facility] [address] [address]DrThang Grissom TSHon 06-15-2022 TSH 2.518 uIU/mL Normal 0.358-3.740 [facility] Comment on above: Performed By: #### T SH, PREGQNT #### [facility] [address] [address] [address] Tatianna Grissom US PELVIS AND TRANSVAGon US PELVIS AND TRANSVAG EXAMINATION: US PELVIS AND TRANSVAG HISTORY: Excessive and frequent menstruation , menorrhagia, spotting between periods COMPARISON: No relevant comparison available. TECHNIQUE: Transabdominal and transvaginal sonographic examination. FINDINGS: UTERUS: A few small nabothian cysts within slaughter of cervix. Normal size and echotexture of uterus. Uterus size: 8.5 x 5.0 x 4.8 cm ENDOMETRIUM: Normal thickness and echogenicity. IUD within endometrial cavity. Endometrial thickness: 6 mm RIGHT OVARY: Normal size and appearance. Duplex Doppler demonstrates normal waveform and flow; resistive index 0.6. Ovary size: 2.7 x 1.9 x 1.5 cm LEFT OVARY: Normal size and appearance. Duplex Doppler demonstrates normal waveform and flow; resistive index 0.5. Ovary size: 3.3 x 2.6 x 1.8 cm CUL-DE-SAC: Trace amount of free fluid, likely physiologic. BLADDER: Unremarkable. OTHER: None. IMPRESSION: 1. IUD within endometrial cavity. 2. No abnormal or suspicious findings to account for patient's symptoms. Electronically authenticated by: AJ ALEJO Date: 2022-06-15 10:41 Normal [facility] ANKLE RIGHT 3 Son 01-13-20 21 ANKLE RIGHT 3 VWS [facility] Department of Radiology [address] [place] [id number] ======== Patient Name: JAYE DOSS : 1990 Sex: F Age: Race: White Pt. Location: 84 Patient Status: O Ordered Date: 01/12/2021 1:10:00 PM Completed Date: 01/12/2021 01:14 PM Requesting Provider: JOSHUA VASQUEZ Attending Provider: JOSHUA VASQUEZ Report Copy To: ASIADORIEMERCEDLUIS Signs & Symptoms: S82.91XA Unsp fracture of right lower leg, init for clos fx I10 History: Comments: evaluate Exam: ANKLE RIGHT 3 [facility] ======== ANKLE RIGHT 3 [facility] 01/12/2021 1:14 PM CLINICAL INDICATIONS: S82.91XA Unsp fracture of right lower leg, init for clos fx I10 TECHNOLOGIST COMMENTS: right ankle pain fx - 3/21 f/u QUESTION FOR THE RADIOLOGIST: evaluate PROTOCOL: AP,Lateral and Oblique views were obtained. COMPARISON: 12/12/2020 FINDINGS: Redemonstration of a distal oblique tibial fracture in unchanged alignment. There is increased callus formation and ongoing healing compared to prior exam. No new fractures. Ankle mortise is intact and symmetrical. Small plantar calcaneal spur. IMPRESSION: Unchanged alignment of distal oblique tibial fracture with ongoing healing. Approved by:Justin Jones01/12/2021 1:30 PM. I, Christy Davis,have reviewed the image(s) and agree with the findings in this report. Electronically signed: Christy Davis. Transcribed by: [email or web address], User Resident: JUSTIN FLORES Electronically Signed by: CHRISTY DAVIS @ 01/12/2021 02:04 PM I personally read this/these film(s) with this resident Normal The [facility] Comment on above: Order Comment: Evalu ate ANKLE RIGHT 3 [facility] 12-13-19 21 ANKLE RIGHT 3 S [facility] Department of Radiology [address] [place] [id number] ======== Patient Name: JAYE DOSS : 1990 Sex: F Age: Race: White Pt. Location: Patient Status: Ordered Date: 12/12/2020 9:20:00 AM Completed Date: 12/12/2020 09:26 AM Requesting Provider: JOSHUA VASQUEZ Attending Provider: Report Copy To: Signs & Symptoms: S82.91XA Unsp fracture of right lower leg, init for clos fx I10 History: [place] Comments: Views (X-RAY, ANKLE): AP, Lateral, Mortise , Weight Bearing?: Y Exam: ANKLE RIGHT 3 [facility] ======== ANKLE RIGHT 3 S 12/12/2020 9:26 AM CLINICAL INDICATIONS: S82.91XA Unsp fracture of right lower leg, init for clos fx I10 TECHNOLOGIST COMMENTS: Patient complains of right ankle pain. History of right ankle fracture July 2020. QUESTION FOR THE RADIOLOGIST: Views (X-RAY, ANKLE): AP, Lateral, Mortise , Weight Bearing?: Y PROTOCOL: AP,Lateral and Oblique views were obtained. COMPARISON: November 13, 2020 FINDINGS: Oblique fracture of the tibial metaphysis. Alignment unchanged. Healing is incomplete but there has been interval healing when compared to previous exam. No definite fibular fracture. IMPRESSION: Oblique fracture of the tibial metaphysis. Alignment unchanged. Healing is incomplete but there has been interval healing when compared to previous exam. No definite fibular fracture. Electronically signed: Christie Us. Transcribed by: [email or web address], User Resident: Electronically Signed by: CHRISTIE US @ 12/12/2020 09:33 PM [place] [facility] Comment on above: Order Comment: Evalu ate ANKLE RIGHT 3 Son 11-14-19 21 ANKLE RIGHT 3 S [facility] Department of Radiology [address] [place] [id number] ======== Patient Name: JAYE DOSS : 1990 Sex: F Age: Race: White Pt. Location: Patient Status: Ordered Date: 11/13/2020 9:05:00 AM Completed Date: 11/13/2020 09:01 AM Requesting Provider: JOSHUA VASQUEZ Attending Provider: Report Copy To: Signs & Symptoms: M25.571 Pain in right ankle and joints of right foot I10 History: [place] Comments: include oblique views Exam: ANKLE RIGHT 3 [facility] ======== ANKLE RIGHT 3 [facility] 11/13/2020 9:01 AM CLINICAL INDICATIONS: M25.571 Pain in right ankle and joints of right foot I10 TECHNOLOGIST COMMENTS: Ortho follow up. Pain and swelling in right ankle. History of ankle fracture in July 2020. QUESTION FOR THE RADIOLOGIST: include oblique views PROTOCOL: AP,Lateral and Oblique views were obtained. COMPARISON: 10/01/2020 FINDINGS: 3 views of the right ankle revealed healing spiral fracture in the distal shaft of the right tibia with increase in periosteal reaction and callus formation since prior study. The alignment is satisfactory. The ankle mortise is preserved. Small calcaneus spur at the plantar fascial attachment. IMPRESSION: Healing distal spiral fracture in the right tibia in satisfactory alignment. Electronically signed: Pelon Mora. Transcribed by: [email or web address], User Resident: Electronically Signed by: RACHALIZA CUATE @ 11/13/2020 10:29 PM Normal [facility] Comment on above: Order Comment: Evalu ate COMP METABOLIC PANELon 10-16 Albumin [Mass/Vol] 4.1 g/dL Normal 3.5-5.7 The [facility] Comment on above: Performed By: #### 3 07, [id number] ####[facility] [place] [address], [place] ALKALINE PHOSPH 74 IU/L Normal 34-104 The [facility] Comment on above: Performed By: #### 3 07, [id number] ####[facility] [place] [address], [place] ALT [Catalytic activity/Vol] 19 U/L Normal 7-52 [facility] Comment on above: Performed By: #### 3 727, [id number] ####[facility] [place] [address], [place] AST [Catalytic activity/Vol] 18 U/L Normal 13-39 [facility] Comment on above: Performed By: #### 3 07, 94410 ####[facility] [place] [address], [place] Bilirubin [Mass/Vol] 0.4 mg/dL Normal 0.3-1.0 [facility] Comment on above: Performed By: #### 3 727, 38611 ####[facility] [place] [address], [place] Calcium [Mass/Vol] 9.3 mg/dL Normal 8.6-10.3 The [facility] Comment on above: Performed By: #### 3 07, 65106 ####[facility] [place] [address], [place] Chloride [Moles/Vol] 104 mmol/L Normal 98-107 [facility] Comment on above: Performed By: #### 3 07, 50300 ####[facility] [place] [address], [facility] CO2 [Moles/Vol] 25 mmol/L Normal 21-31 [facility] Comment on above: Performed By: #### 3 727, 11390 ####[facility] [place] [address], [place] Creatinine [Mass/Vol] 0.53 mg/dL Low 0.60-1.20 The [facility] Comment on above: Performed By: #### 3 727, 45407 ####[facility] [place] [address], [place] GFR/1.73 sq M.predicted among blacks MDRD (S/P/Bld) [Vol rate/Area] mL/min/{1.73_m2} Normal >60 [facility] Comment on above: Performed By: #### 3 727, 08875 ####[facility] [place] [address], [place] GFR/1.73 sq M.predicted among non-blacks MDRD (S/P/Bld) [Vol rate/Area] mL/min/{1.73_m2} Normal >60 [facility] Comment on above: Performed By: #### 3 07, 93339 ####[facility] [place] [address], [place] Glucose [Mass/Vol] 88 mg/dL Normal 70-100 [facility] Comment on above: Performed By: #### 3 07, 70708 ####[facility] [place] [address], [place] Potassium [Moles/Vol] 3.9 mmol/L Normal 3.5-5.1 [facility] Comment on above: Performed By: #### 3 0728, 19374 ####[facility] [facility] [place] [address], [facility] Protein [Mass/Vol] 6.7 g/dL Normal 6.0-8.3 The [facility] Comment on above: Performed By: #### 3 0728, [id number] ####[facility] [facility] [place] [address], [facility] Sodium [Moles/Vol] 138 mmol/L Normal 136-145 [facility] Comment on above: Performed By: #### 3 0728, [id number] ####[facility] [facility] [place] [address], [facility] Urea nitrogen [Mass/Vol] 7 mg/dL Normal 7-25 [facility] Comment on above: Performed By: #### 3 0728, [id number] ####[facility] [place] [address], [facility] VITAMIN D 25-HYDROXYon 10-16 VITAMIN D 25-OH 19.7 ng/mL Low 30.0-80.0 [facility] Comment on above: Result Comment: >80. 0 Toxicity possible Performed By: #### 3 0728, [id number] ####[facility] [facility] [place] [address], [facility] CT LOWER EXTREMITY WO CONTRA ST RIGHTon 10-15-2020 CT LOWER EXTREMITY WO CONTRAST RIGHT [facility] Department of Radiology [address] [place] [address] ======== Patient Name: JAYE DOSS : 1990 Sex: F Age: Race: White Pt. Location: Patient Status: D Ordered Date: 10/01/2020 1:35:00 PM Completed Date: 10/15/2020 08:59 AM Requesting Provider: JOSHUA VASQUEZ Attending Provider: JOSHUA VASQUEZ Report Copy To: SANDHYA BETANCOURT Signs & Symptoms: S82.91XA Unsp fracture of right lower leg, init for clos fx I10 History: [employer] cares[employer] auth [id number] valid 10/06/2020 - 12/05/2020 per grant [id number] *kw Comments: CT scan right ankle/tibia assess healing Exam: CT LOWER EXTREMITY WO CONTRAST RIGHT ======== CT LOWER EXTREMITY WO CONTRAST RIGHT 10/15/2020 9:03 AM CLINICAL INDICATIONS: S82.91XA Unsp fracture of right lower leg, init for clos fx I10 TECHNOLOGIST COMMENTS: pt fell down the stairs this weekend fracture to right ankle pain in right ankle QUESTION FOR THE RADIOLOGIST: CT scan right ankle/tibia assess healing PROTOCOL: Axial CT images of the extremity were obtained without IV contrast. TECHNIQUE: Multidetector CT axial slices of the right lower extremity without IV contrast. Multiplanar reformats were performed and viewed on a separate workstation and reviewed to further define anatomy and possible pathology. COMPARISON: 10/01/2020. FINDINGS: Soft tissue edema is noted. There is a healing proximal fibular fracture with bridging callus and mild displacement. No knee joint effusion or Alexandre's cyst. No fluid collection. Obliquely oriented distal fibular fracture with callus formation, with without significant bridging callus noted. Extensive soft tissue swelling noted overlying the ankle. Motion artifact limits assessment of the foot, metatarsals, and midfoot. IMPRESSION: 1. Oblique distal tibial fracture with callus formation, minimal to no bridging callus identified. 2. Routine healing of proximal fibular fracture with some bridging callus. 3. Soft tissue edema. All CT scans at this facility use dose modulation, iterative reconstruction, and/or weight based dosing when appropriate to reduce radiation dose to as low as reasonably achievable. Electronically signed: Christy Davis. Transcribed by: [email or web address], User Resident: Electronically Signed by: CHRISTY DAVIS @ 10/16/2020 09:17 AM Normal The [facility] Comment on above: Order Comment: CT sc an right ankle/tibia assess healing ANKLE RIGHT 3 [facility] 10-02-19 21 ANKLE RIGHT 3 [facility] Department of Radiology [address] [place] [id number] ======== Patient Name: AJYE DOSS : 1990 Sex: F Age: Race: White Pt. Location: Patient Status: D Ordered Date: 10/01/2020 12:50:00 PM Completed Date: 10/01/2020 01:21 PM Requesting Provider: JOSHUA VASQUEZ Attending Provider: DELORES MENDEZ Report Copy To: Signs & Symptoms: S82.91XA Unsp fracture of right lower leg, init for clos fx I10 History: [place] Comments: Evaluate Exam: ANKLE RIGHT 3 [facility] ======== ANKLE RIGHT 3 [facility] 10/01/2020 1:21 PM CLINICAL INDICATIONS: S82.91XA Unsp fracture of right lower leg, init for clos fx I10 TECHNOLOGIST COMMENTS: Recheck for right ankle fracture times 2 months. pain to entire right ankle QUESTION FOR THE RADIOLOGIST: Evaluate PROTOCOL: AP,Lateral and Oblique views were obtained. COMPARISON: September 15, 2020 FINDINGS: Osteopenia. Evidence of distal tibial spiral fracture with callus formation and appropriate stable alignment. Osseous bridging is not yet complete. Ankle mortise intact. IMPRESSION: Progressive callus formation without osseous bridging across the distal tibial fracture line. Electronically signed: Andrew Villarreal. Transcribed by: [email or web address], User Resident: Electronically Signed by: ANDREW VILLARREAL @ 10/01/2020 02:26 PM Normal [facility] Comment on above: Order Comment: Evalu ate ANKLE RIGHT 3 [facility] 09-16-19 21 ANKLE RIGHT 3 [facility] Department of Radiology [address] [place] [id number] ======== Patient Name: JAYE DOSS : 1990 Sex: F Age: Race: White Pt. Location: Patient Status: Ordered Date: 09/15/2020 8:55:00 AM Completed Date: 09/15/2020 08:59 AM Requesting Provider: JOSHUA VASQUEZ Attending Provider: Report Copy To: Signs & Symptoms: S82.91XA Unsp fracture of right lower leg, init for clos fx I10 History: Comments: evaluate Exam: ANKLE RIGHT 3 [facility] ======== ANKLE RIGHT 3 [facility] 09/15/2020 8:59 AM CLINICAL INDICATIONS: S82.91XA Unsp fracture of right lower leg, init for clos fx I10 pain TECHNOLOGIST COMMENTS: follow/up fractured right ankle 9 weeks ago. PROTOCOL: AP,Lateral and Oblique views were obtained. COMPARISON: 09/03/2020 IMPRESSION: Spiral fracture of the distal tibia is again appreciated. Callus formation is noted. Alignment is maintained. Healing is incomplete but ongoing. Follow-up is planned Electronically signed: Yamini [place]. Transcribed by: [email or web address], User Resident: Electronically Signed by: YAMINI LANCASTER @ 09/15/2020 09:31 AM Normal [facility] Comment on above: Order Comment: evalu ate ANKLE RIGHT 3 [facility] 09-04-19 ANKLE RIGHT 3 [facility] Department of Radiology [address] [place] [phone] ======== Patient Name: JAYE DOSS : 1990 Sex: F Age: Race: White Pt. Location: Patient Status: O Ordered Date: 09/03/2020 9:20:00 AM Completed Date: 09/03/2020 09:28 AM Requesting Provider: DELORES MENDEZ Attending Provider: DELORES MENDEZ Report Copy To: Signs & Symptoms: S82.91XA Unsp fracture of right lower leg, init for clos fx I10 History: Comments: Evaluate Exam: ANKLE RIGHT 3 [facility] ======== ANKLE RIGHT 3 [facility] 09/03/2020 9:28 AM CLINICAL INDICATIONS: S82.91XA Unsp fracture of right lower leg, init for clos fx I10 TECHNOLOGIST COMMENTS: ortho follow up rt ankle fracture 7 weeks ago QUESTION FOR THE RADIOLOGIST: Evaluate PROTOCOL: AP,Lateral and Oblique views were obtained. COMPARISON: August 20, 2020 FINDINGS: Tibia and fibula fractures in stable alignment. There is some early posterior callus formation. IMPRESSION: No significant interval change Electronically signed: Yamini Boudreaux. Transcribed by: [email or web address], User Resident: Electronically Signed by: YAMINI BOUDREAUX @ 09/03/2020 10:35 AM Normal [facility] Comment on above: Order Comment: Evalu ate ANKLE RIGHT 3 Son 08-21-19 21 ANKLE RIGHT 3 S [facility] Department of Radiology [address] [place] [id number] ======== Patient Name: JAYE DOSS : 1990 Sex: F Age: Race: White Pt. Location: Patient Status: Ordered Date: 08/20/2020 9:40:00 AM Completed Date: 08/20/2020 09:40 AM Requesting Provider: DELORES MENDEZ Attending Provider: Report Copy To: Signs & Symptoms: S82.91XA Unsp fracture of right lower leg, init for clos fx I10 History: [place] Comments: , , , Ordering Provider - DELORES MENDEZ MD , Exam: ANKLE RIGHT 3 [facility] ======== ANKLE RIGHT 3 S 08/20/2020 9:40 AM CLINICAL INDICATIONS: S82.91XA Unsp fracture of right lower leg, init for clos fx I10 TECHNOLOGIST COMMENTS: History of right ankle fracture 07/15/2020. Patient states she tripped last night. Ortho follow up. QUESTION FOR THE RADIOLOGIST: , , , Ordering Provider - DELORES MENDEZ MD , PROTOCOL: AP,Lateral and Oblique views were obtained. COMPARISON: August 14, 2019 FINDINGS: Stable spiral fracture of the distal tibia. Fibula intact. No change IMPRESSION: No interval change Electronically signed: Yamini Boudreaux. Transcribed by: [email or web address], User Resident: Electronically Signed by: YAMINI BOUDREAUX @ 08/20/2020 11:13 AM Normal [facility] Comment on above: Order Comment: Evalu ate VITAMIN D 25-HYDROXYon 08-20 VITAMIN D 25-OH 13.3 ng/mL Low 30.0-80.0 [facility] Comment on above: Result Comment: >80. 0 Toxicity possible Performed By: #### 3 0728 ####[place] [id number] ANKLE RIGHT 3 Son 08-14-19 21 ANKLE RIGHT 3 S [facility] Department of Radiology [address] [place] [id number] ======== Patient Name: JAYE DOSS : 1990 Sex: F Age: Race: White Pt. Location: 84 Patient Status: Ordered Date: 08/13/2020 9:10:00 AM Completed Date: 08/13/2020 09:10 AM Requesting Provider: JOSHUA VASQUEZ Attending Provider: Report Copy To: Signs & Symptoms: S82.91XA Unsp fracture of right lower leg, init for clos fx I10 History: Comments: Evaluate Exam: ANKLE RIGHT 3 S ======== ANKLE RIGHT 3 [facility] 08/13/2020 9:13 AM CLINICAL INDICATIONS: S82.91XA Unsp fracture of right lower leg, init for clos fx I10. TECHNOLOGIST COMMENTS: Follow up right ankle/lower leg injury July 2020. QUESTION FOR THE RADIOLOGIST: Evaluate. PROTOCOL: AP, Lateral and Oblique views were obtained. COMPARISON: 07/18/2020. FINDINGS: Overlying mesh material obscures fine details. The minimally posterior displaced spiral fracture of the distal tibia and nondisplaced transverse fracture of the posterior malleolus are redemonstrated and are in stable alignment. The ankle mortise is preserved. No other acute osseous abnormality is seen. IMPRESSION: Stable alignment of the minimally displaced distal tibial spiral fracture and nondisplaced posterior malleolar fracture. The proximal fibular fracture is not included on the ankle series Approved by:Sun Morrell08/13/2020 9:37 AM. I, Jeevan Sin,have reviewed the images and reports Electronically signed: Jeevan Sin. Transcribed by: [email or web address], User Resident: SUN MCCARTY Electronically Signed by: JEEVAN SIN @ 08/13/2020 11:36 AM I personally read this/these film(s) with this resident Normal [facility] Comment on above: Order Comment: Evalu ate TIBIA FIBULA RIGHTon 021 TIBIA FIBULA RIGHT [facility] Department of Radiology [address] [place] [address] ======== Patient Name: JAYE DOSS : 1990 Sex: F Age: Race: White Pt. Location: 84 Patient Status: Ordered Date: 08/13/2020 9:10:00 AM Completed Date: 08/13/2020 09:10 AM Requesting Provider: JOSHUA VASQUEZ Attending Provider: Report Copy To: Signs & Symptoms: S82.91XA Unsp fracture of right lower leg, init for clos fx I10 History: Comments: Evaluate Exam: TIBIA FIBULA RIGHT ======== TIBIA FIBULA RIGHT 08/13/2020 9:13 AM CLINICAL INDICATIONS: S82.91XA Unsp fracture of right lower leg, init for clos fx I10. TECHNOLOGIST COMMENTS: Follow up right ankle/lower leg injury July 2020. QUESTION FOR THE RADIOLOGIST: Evaluate. PROTOCOL: AP(PA) and Lateral views were obtained. COMPARISON: 07/30/2020. FINDINGS: The minimally anteriorly displaced proximal fibular shaft fracture is redemonstrated, with an apparent slightly increased displacement compared to the prior study, which is likely projectional. The knee joint is in stable alignment. No evidence of subluxation or new acute osseous abnormality. The minimally displaced spiral fracture of the distal tibia is in stable position. IMPRESSION: * Apparent minimal increase in displacement of the proximal fibular shaft fracture, which is likely projectional. * Stable alignment of the minimally displaced spiral fracture of the distal tibia. Approved by:Sun Morrell08/13/2020 9:56 AM. I, Jeevan Sin,have reviewed the images and reports Electronically signed: Jeevan Sin. Transcribed by: [email or web address], User Resident: SUN MCCARTY Electronically Signed by: JEEVAN SIN @ 08/13/2020 11:36 AM I personally read this/these film(s) with this resident Normal [facility] Comment on above: Order Comment: Evalu ate TIBIA FIBULA RIGHTon 021 TIBIA FIBULA RIGHT [facility] Department of Radiology [address] [place] [phone] ======== Patient Name: JAYE DOSS : 1990 Sex: F Age: Race: White Pt. Location: Patient Status: O Ordered Date: 07/30/2020 9:05:00 AM Completed Date: 07/30/2020 09:06 AM Requesting Provider: DELORES MENDEZ Attending Provider: DELORES MENDEZ Report Copy To: Signs & Symptoms: S82.91XA Unsp fracture of right lower leg, init for clos fx I10 History: Comments: Evaluate Exam: TIBIA FIBULA RIGHT ======== TIBIA FIBULA RIGHT 07/30/2020 9:06 AM CLINICAL INDICATIONS: S82.91XA Unsp fracture of right lower leg, init for clos fx I10 TECHNOLOGIST COMMENTS: right tib/fib fracture x 2 weeks ago follow up QUESTION FOR THE RADIOLOGIST: Evaluate PROTOCOL: AP(PA) and Lateral views were obtained. COMPARISON: July 23 FINDINGS: There is a splint in place There is a spiral fracture of the distal tibia with mild cortical step-off There is an oblique fracture of the proximal fibular shaft Alignment looks grossly normal IMPRESSION: Overlying splint with spiral fracture distal tibia and oblique fracture proximal fibula Electronically signed: Jeevan Sin. Transcribed by: [email or web address], User Resident: Electronically Signed by: JEEVAN SIN @ 07/30/2020 09:23 AM Normal [facility] Comment on above: Order Comment: Evalu ate TIBIA FIBULA RIGHTon 021 TIBIA FIBULA RIGHT [facility] Department of Radiology [address] [place] [address] ======== Patient Name: JAYE DOSS : 1990 Sex: F Age: Race: White Pt. Location: Patient Status: Ordered Date: 07/23/2020 9:20:00 AM Completed Date: 07/23/2020 09:29 AM Requesting Provider: JOSHUA VASQUEZ Attending Provider: Report Copy To: Signs & Symptoms: S82.91XA Unsp fracture of right lower leg, init for clos fx I10 History: [place] Comments: Evaluate Exam: TIBIA FIBULA RIGHT ======== CLINICAL INDICATIONS: S82.91XA Unsp fracture of right lower leg, init for clos fx I10. TECHNOLOGIST COMMENTS: Follow up right lower leg injury a week ago. QUESTION FOR THE RADIOLOGIST: Evaluate. PROTOCOL: AP(PA) and Lateral views were obtained. COMPARISON: 07/18/2020. FINDINGS: There is a spiral fracture of the distal tibia with a fracture of the posterior malleolus. There is also a minimally displaced spiral fracture of the proximal diaphysis of the fibula. There is appropriate alignment of the proximal and distal tibiofibular syndesmoses. IMPRESSION: * Stable alignment of right lower leg fractures. Approved by:Sun Morrell07/23/2020 9:41 AM. IDeng,have reviewed the images and reports Electronically signed: Deng Billingsley. Transcribed by: [email or web address], User Resident: DENG MCCARTY Electronically Signed by: DENG BILLINGSLEY @ 07/23/2020 11:27 AM I personally read this/these film(s) with this resident Normal [facility] Comment on above: Order Comment: Evalu ate ANKLE RIGHT 3 Son 07-19-19 21 ANKLE RIGHT 3 S [facility] Department of Radiology [address] [place] [phone] ======== Patient Name: JAYE DOSS : 1990 Sex: F Age: Race: White Pt. Location: Patient Status: Ordered Date: 07/18/2020 10:40:00 AM Completed Date: 07/18/2020 10:42 AM Requesting Provider: JOSHUA VASQUEZ Attending Provider: Report Copy To: Signs & Symptoms: S82.91XA Unsp fracture of right lower leg, init for clos fx I10 History: [place] Comments: Views (X-RAY, ANKLE): AP, Lateral, Mortise Exam: ANKLE RIGHT 3 [facility] ======== ANKLE RIGHT 3 S 07/18/2020 10:42 AM CLINICAL INDICATIONS: S82.91XA Unsp fracture of right lower leg, init for clos fx I10 TECHNOLOGIST COMMENTS: Patient fell down the stairs. Has right tib/fib pain, right foot/ankle pain. PROTOCOL: AP,Lateral and Oblique views were obtained. COMPARISON: None IMPRESSION: Acute spiral fracture of the distal right tibia is appreciated. There is 2 mm of offset. Soft tissue swelling is observed. Nondisplaced posterior malleolus fracture. Os trigonum. No definite fibular fracture. Electronically signed: Yamini [place]. Transcribed by: [email or web address], User Resident: Electronically Signed by: YAMINI LANCASTER @ 07/18/2020 03:20 PM Normal [facility] Comment on above: Order Comment: Views (X-RAY, ANKLE): AP, Lateral, Mortise FOOT RIGHT 2 [facility] FOOT RIGHT 2 [facility] Department of Radiology [address] [place] [phone] ======== Patient Name: JAYE DOSS : 1990 Sex: F Age: Race: White Pt. Location: Patient Status: O Ordered Date: 07/18/2020 10:40:00 AM Completed Date: 07/18/2020 10:42 AM Requesting Provider: JOSHUA VASQUEZ Attending Provider: JOSHUA VASQUEZ Report Copy To: Signs & Symptoms: S82.91XA Unsp fracture of right lower leg, init for clos fx I10 History: [place] Comments: Views (X-RAY, FOOT): AP, Oblique Exam: FOOT RIGHT 2 [facility] ======== FOOT RIGHT 2 [facility] 07/18/2020 10:42 AM CLINICAL INDICATIONS: S82.91XA Unsp fracture of right lower leg, init for clos fx I10 TECHNOLOGIST COMMENTS: Patient fell down the stairs. Has right tib/fib pain, right foot/ankle pain. QUESTION FOR THE RADIOLOGIST: Views (X-RAY, FOOT): AP, Oblique PROTOCOL: ap and oblique COMPARISON: None FINDINGS: No fracture or dislocation of the foot. Please see ankle dictation. IMPRESSION: No fracture or dislocation of the foot. Please see ankle dictation. Electronically signed: Christie Us. Transcribed by: [email or web address], User Resident: Electronically Signed by: CHRISTIE US @ 07/18/2020 10:15 PM Normal [facility] Comment on above: Order Comment: Views (X-RAY, FOOT): AP, Oblique TIBIA FIBULA RIGHTon 021 TIBIA FIBULA RIGHT [facility] Department of Radiology [address] [place] [phone] ======== Patient Name: JAYE DOSS : 1990 Sex: F Age: Race: White Pt. Location: Patient Status: O Ordered Date: 07/18/2020 10:40:00 AM Completed Date: 07/18/2020 10:42 AM Requesting Provider: JOSHUA VASQUEZ Attending Provider: JOSHUA VASQUEZ Report Copy To: Signs & Symptoms: S82.91XA Unsp fracture of right lower leg, init for clos fx I10 History: [place] Comments: Views (X-RAY, TIBIA AND FIBULA): AP, Lateral Exam: TIBIA FIBULA RIGHT ======== TIBIA FIBULA RIGHT 07/18/2020 10:42 AM CLINICAL INDICATIONS: S82.91XA Unsp fracture of right lower leg, init for clos fx I10 TECHNOLOGIST COMMENTS: Patient fell down the stairs. Has right tib/fib pain, right foot/ankle pain. PROTOCOL: AP(PA) and Lateral views were obtained. COMPARISON: None IMPRESSION: Acute appearing spiral fracture of the distal right tibia is appreciated. Proximal locking spiral fracture of the fibula is noted. Orthopedic follow-up is planned Electronically signed: Yamini [place]. Transcribed by: [email or web address], User Resident: Electronically Signed by: YAMINI LANCASTER @ 07/18/2020 04:09 PM Normal [facility] Comment on above: Order Comment: Views (X-RAY, TIBIA AND FIBULA): AP, Lateral POCT HCG, Prenancy, Uron Beta HCG ( test) Ql (U) Negative NEGATIVE [place], [place] Comment on above: HCG screen is sensitive to 25 mIU/mL. However this test may supervisor opening and picking lower levels of HCG. If further evaluation is needed please request quantitative HCG. - [facility] RE[facility]ED [facility] 020 Surgical Pathology (NOTE) [id number] [place] [address] SURGICAL PATHOLOGY REPORT Patient Name: JAYE DOSS MR#: [id number] Specimen #[id number] Final Diagnosis STOMACH, ENDOSCOPIC BIOPSY: FRAGMENTS OF GASTRIC MUCOSA WITH MINIMAL, NONSPECIFIC CHRONIC INFLAMMATION IN THE LAMINA PROPRIA NO HELICOBACTER PYLORI ORGANISMS SEEN NEITHER INTESTINAL METAPLASIA NOR DYSPLASIA SEEN Jackie Luke. Electronically Signed [facility]/01/10/2020 Clinical Information Abdominal pain; EGD; formalin time: 10:16 Source: A: Gastric biopsy for H pylori Gross Description The specimen is received in formalin, labeled with the patient's name, designated as gastric biopsy for H. pylori . It consists of four, 0.1 to 0.2 cm in length, light chau, soft tissue fragments, totally submitted in one cassette. SPF/cj Microscopic Description Two LUCIANO stained slides reviewed. Microscopic examination confirms the above final diagnosis. Normal [facility] Comment on above: Performed By: #### P PPES #### Lab [address] [facility] [place] [address] Color Paste Mixer: Raymundo Gaytan DO Tiss Transglutam IgAon 01-07 Tiss Transglutam IgA <0.1 Normal <7.0 [facility] Comment on above: Result Comment: CELIAC INTERPRETATION <7.0 Negative 7.0-10.0 Equivocal >10.0 Positive units: U/mL Performed By: #### C DP, CP, LIP, TSH #### Lab [address] [facility] [place] [address] Color Paste Mixer: Raymundo Gaytan DO #### IGA, IGALR, TTIGA #### [place] [address] [place], [place] [id number] Color Paste Mixer: Storm Martin MD Covid-19 Ambulatoryon 2019 SARS-CoV-2, ANTONIO Not Detected Not Detected [place], [place] Comment on above: (NOTE) This test was developed and its performance characteristics determined by [employer]. This test has not been FDA cleared or approved. This test has been authorized by FDA under an Emergency Use Authorization (EUA). This test is only authorized for the duration of time the declaration that circumstances exist justifying the authorization of the emergency use of in vitro diagnostic tests for detection of SARS-CoV-2 virus and/or diagnosis of COVID-19 infection under section 564(b)(1) of the Act, 21 U.S.C. 360bbb-3(b)(1), unless the authorization is terminated or revoked sooner. When diagnostic testing is negative, the possibility of a false negative result should be considered in the context of a patient's recent exposures and the presence of clinical signs and symptoms consistent with COVID-19. An individual without symptoms of COVID-19 and who is not shedding SARS-CoV-2 virus would expect to have a negative (not detected) result in this assay. Performed At: [facility] [address] [facility], [place] [id number] Winter Patel MD Ph:[phone] [id number] 01-06-2020 SARS-CoV-2 Not Detected Normal Not Detected [facility] Comment on above: Result Comment: (NOT E) This test was developed and its performance characteristics determined by [employer]. This test has not been FDA cleared or approved. This test has been authorized by FDA under an Emergency Use Authorization (EUA). This test is only authorized for the duration of time the declaration that circumstances exist justifying the authorization of the emergency use of in vitro diagnostic tests for detection of SARS-CoV-2 virus and/or diagnosis of COVID-19 infection under section 564(b)(1) of the Act, 21 U.S.C. 360bbb-3(b)(1), unless the authorization is terminated or revoked sooner. When diagnostic testing is negative, the possibility of a false negative result should be considered in the context of a patient's recent exposures and the presence of clinical signs and symptoms consistent with COVID-19. An individual without symptoms of COVID-19 and who is not shedding SARS-CoV-2 virus would expect to have a negative (not detected) result in this assay. Performed At: [facility] [address] [place] [id number] Winter Patel MD Ph:[phone] Performed By: #### A COV #### [facility] [address] [place] [address] Color Paste Mixer: Jessika Graham MD CBC Auto Differentialon 12-15 Basophils (Bld) [#/Vol] 0.10 10*3/uL [place] Basophils/100 WBC (Bld) 1 % 0 - 2 % [place] Differential Type NOT REPORTED [place] Eosinophils (Bld) [#/Vol] 0.20 10*3/uL [place] Eosinophils/100 WBC (Bld) 3 % 0 - 4 % [place] Erythrocyte distribution width (RBC) [Ratio] 12.2 % 11.5 - 14.9 % [place] Hematocrit (Bld) [Volume fraction] 41.1 % 36 - 46 % [place] Hemoglobin (Bld) [Mass/Vol] 14.7 g/dL 12 - 16 g/dL [place] Interpretation and review of laboratory results Abnormal [place] Lymphocytes (Bld) [#/Vol] 2.30 10*3/uL [place] Lymphocytes/100 WBC (Bld) 29 % 24 - 44 % [place] MCH (RBC) [Entitic mass] 32.8 pg 26 - 34 pg [place] MCHC (RBC) [Mass/Vol] 35.7 g/dL 31 - 37 g/dL [place] MCV (RBC) [Entitic vol] 91.9 fL 80 - 100 fL [place] Monocytes (Bld) [#/Vol] 0.70 10*3/uL [place] Monocytes/100 WBC (Bld) 9 % High 1 - 7 % [place] Platelet mean volume (Bld) [Entitic vol] 9.7 fL 6 - 12 fL [place] Platelets (Bld) [#/Vol] NOT REPORTED [place] Platelets (Bld) [#/Vol] 233 10*3/uL [place] RBC (Bld) [#/Vol] 4.47 10*6/uL 4 - 5.2 m/uL [place] RBC morphology finding Nom (Bld) NOT REPORTED [place] Segmented neutrophils/100 WBC (Bld) 58 % 36 - 66 % [place] Segs Absolute 4.70 [place] WBC (Bld) [#/Vol] 7.9 10*3/uL [place] WBC (Bld) [#/Vol] NOT REPORTED per 100 WBC [place] WBC Morphology NOT REPORTED [place] CBC with Diffon 01-04-2020 Abs. Basophil 0.10 k/uL Normal 0.0-0.2 [facility] Comment on above: Performed By: #### C DP, CP, LIP, TSH #### Lab [address] [place] [address] Color Paste Mixer: Raymundo Gaytan DO #### IGA, IGALR, TTIGA #### [address] [address] Color Paste Mixer: Storm Martin MD Abs.Neutrophil (Seg) 4.70 k/uL Normal 1.3-9.1 [facility] Comment on above: Performed By: #### C DP, CP, LIP, TSH #### Lab [facility] [place] [address] Color Paste Mixer: Raymundo Gaytan DO #### IGA, IGALR, TTIGA #### [place] [address] Color Paste Mixer: Storm Martin MD Basophils/100 WBC (Bld) 1 % Normal 0-2 [facility] Comment on above: Performed By: #### C DP, CP, LIP, TSH #### Lab [address] [place] [address] Color Paste Mixer: Raymundo Gaytan DO #### IGA, IGALR, TTIGA #### [place] [address] Color Paste Mixer: Storm Martin MD Eosinophils (Bld) [#/Vol] 0.20 10*3/uL Normal 0.0-0.4 [facility] Comment on above: Performed By: #### C DP, CP, LIP, TSH #### Lab [address] [place] [address] Color Paste Mixer: Raymundo Gaytan DO #### IGA, IGALR, TTIGA #### [address] [address] Color Paste Mixer: Storm Martin MD Eosinophils/100 WBC (Bld) 3 % Normal 0-4 [facility] Comment on above: Performed By: #### C DP, CP, LIP, TSH #### Lab [address] [place] [address] Color Paste Mixer: Raymundo Gaytan DO #### IGA, IGALR, TTIGA #### [address] [address] Color Paste Mixer: Storm Martin MD Erythrocyte distribution width (RBC) [Ratio] 12.2 % Normal 11.5-14.9 [facility] Comment on above: Performed By: #### C DP, CP, LIP, TSH #### Lab [facility] [place] [address] Color Paste Mixer: Raymundo Gaytan DO #### IGA, IGALR, TTIGA #### [address] [address] Color Paste Mixer: Storm Martin MD Hematocrit (Bld) [Volume fraction] 41.1 % Normal 36-46 [facility] Comment on above: Performed By: #### C DP, CP, LIP, TSH #### Lab [facility] [place] [address] Color Paste Mixer: Raymundo Gaytan DO #### IGA, IGALR, TTIGA #### [address] [address] Color Paste Mixer: Storm Martin MD Hemoglobin (Bld) [Mass/Vol] 14.7 g/dL Normal 12.0-16.0 [facility] Comment on above: Performed By: #### C DP, CP, LIP, TSH #### Lab [facility] [place] [address] Color Paste Mixer: Raymundo Gaytan DO #### IGA, IGALR, TTIGA #### [address] [address] Color Paste Mixer: Storm Martin MD Lymphocytes (Bld) [#/Vol] 2.30 10*3/uL Normal 1.0-4.8 [facility] Comment on above: Performed By: #### C DP, CP, LIP, TSH #### Lab [address] [place] [address] Color Paste Mixer: Raymundo Gaytan DO #### IGA, IGALR, TTIGA #### [address] [address] Color Paste Mixer: Storm Martin MD Lymphocytes/100 WBC (Bld) 29 % Normal 24-44 [facility] Comment on above: Performed By: #### C DP, CP, LIP, TSH #### Lab [address] [place] [address] Color Paste Mixer: Raymundo Gaytan DO #### IGA, IGALR, TTIGA #### [address] [address] Color Paste Mixer: Storm Martin MD MCH (RBC) [Entitic mass] 32.8 pg Normal 26-34 [facility] Comment on above: Performed By: #### C DP, CP, LIP, TSH #### Lab [facility] [place] [address] Color Paste Mixer: Raymundo Gaytan DO #### IGA, IGALR, TTIGA #### [address] [address] Color Paste Mixer: Storm Martin MD MCHC (RBC) [Mass/Vol] 35.7 g/dL Normal 31-37 [facility] Comment on above: Performed By: #### C DP, CP, LIP, TSH #### Lab [facility] [place] [address] Color Paste Mixer: Raymundo Gaytan DO #### IGA, IGALR, TTIGA #### [address] [address] Color Paste Mixer: Storm Martin MD MCV (RBC) [Entitic vol] 91.9 fL Normal 80-100 [facility] Comment on above: Performed By: #### C DP, CP, LIP, TSH #### Lab [facility] [place] [address] Color Paste Mixer: Raymundo Gaytan DO #### IGA, IGALR, TTIGA #### [address] [address] Color Paste Mixer: Storm Martin MD Monocytes (Bld) [#/Vol] 0.70 10*3/uL Normal 0.1-1.3 [facility] Comment on above: Performed By: #### C DP, CP, LIP, TSH #### Lab [facility] [place] [address] Color Paste Mixer: Raymundo Gaytan DO #### IGA, IGALR, TTIGA #### [address] [address] Color Paste Mixer: Storm Mratin MD Monocytes/100 WBC (Bld) 9 % High 1-7 [facility] Comment on above: Performed By: #### C DP, CP, LIP, TSH #### Lab [address] [place] [address] Color Paste Mixer: Raymundo Gaytan DO #### IGA, IGALR, TTIGA #### [address] [address] Color Paste Mixer: Storm Martin MD Neutrophil (Seg) 58 % Normal 36-66 [facility] Comment on above: Performed By: #### C DP, CP, LIP, TSH #### Lab [address] [place] [address] Color Paste Mixer: Raymundo Gaytan DO #### IGA, IGALR, TTIGA #### [address] [address] Color Paste Mixer: Storm Martin MD Platelet mean volume (Bld) [Entitic vol] 9.7 fL Normal 6.0-12.0 [facility] Comment on above: Performed By: #### C DP, CP, LIP, TSH #### Lab [address] [place] [address] Color Paste Mixer: Raymundo Gaytan DO #### IGA, IGALR, TTIGA #### [address] [address] Color Paste Mixer: Storm Martin MD Platelets (Bld) [#/Vol] 233 10*3/uL Normal 150-450 [facility] Comment on above: Performed By: #### C DP, CP, LIP, TSH #### Lab [facility] [place] [address] Color Paste Mixer: Raymundo Gaytan DO #### IGA, IGALR, TTIGA #### [address] [address] Color Paste Mixer: Storm Martin MD RBC (Bld) [#/Vol] 4.47 10*6/uL Normal 4.0-5.2 [facility] Comment on above: Performed By: #### C DP, CP, LIP, TSH #### Lab [address] [place] [address] Color Paste Mixer: Raymundo Gaytan DO #### IGA, IGALR, TTIGA #### [address] [address] Color Paste Mixer: Storm Martin MD WBC (Bld) [#/Vol] 7.9 10*3/uL Normal 3.5-11.0 [facility] Comment on above: Performed By: #### C DP, CP, LIP, TSH #### Lab [address] [place] [address] Color Paste Mixer: Raymundo Gaytan DO #### IGA, IGALR, TTIGA #### [address] [address] Color Paste Mixer: Storm Martin MD Abs.Imm.Granulocyte NOT REPORTED Normal 0.00-0.30 [facility] Comment on above: Performed By: #### C DP, CP, LIP, TSH #### Lab [facility] [place] [address] Color Paste Mixer: Raymundo Gaytan DO #### IGA, IGALR, TTIGA #### [place] [address] Color Paste Mixer: Storm Martin MD Auto Diff Performed NOT REPORTED Normal [facility] Comment on above: Performed By: #### C DP, CP, LIP, TSH #### Lab [facility] [place] [address] Color Paste Mixer: Raymundo Gaytan DO #### IGA, IGALR, TTIGA #### [address] [address] Color Paste Mixer: Storm Martin MD Immature granulocytes (Bld) [#/Vol] NOT REPORTED Normal 0 [facility] Comment on above: Performed By: #### C DP, CP, LIP, TSH #### Lab [address] [place] [address] Color Paste Mixer: Raymundo Gaytan DO #### IGA, IGALR, TTIGA #### [address] [address] Color Paste Mixer: Storm Martin MD NRBC Automated NOT REPORTED Normal [facility] Comment on above: Performed By: #### C DP, CP, LIP, TSH #### Lab [facility] [place] [address] Color Paste Mixer: Raymundo Gaytan DO #### IGA, IGALR, TTIGA #### [address] [address] Color Paste Mixer: Storm Martin MD Platelets (Bld) [#/Vol] NOT REPORTED Normal [facility] Comment on above: Performed By: #### C DP, CP, LIP, TSH #### Lab [address] [place] [address] Color Paste Mixer: Raymundo Gaytan DO #### IGA, IGALR, TTIGA #### [address] [address] Color Paste Mixer: Storm Martin MD RBC morphology finding Nom (Bld) NOT REPORTED Normal [facility] Comment on above: Performed By: #### C DP, CP, LIP, TSH #### Lab [address] [place] [address] Color Paste Mixer: Raymundo Gaytan DO #### IGA, IGALR, TTIGA #### [address] [address] Color Paste Mixer: Storm Martin MD WBC Morphology NOT REPORTED Normal [facility] Comment on above: Performed By: #### C DP, CP, LIP, TSH #### Lab [address] [place] [address] Color Paste Mixer: Raymundo Gaytan DO #### IGA, IGALR, TTIGA #### [address] [address] Color Paste Mixer: Storm Martin MD Comp Metabolic Profon 2019 (cont.) Normal [facility] Comment on above: Result Comment: Aver age GFR for 20-29 years old: 116 mL/min/1.73sq m Chronic Kidney Disease: <60 mL/min/1.73sq m Kidney failure: <15 mL/min/1.73sq m eGFR calculated using average adult body mass. Additional eGFR calculator available at: http://www.[employer]/multiple_crcl_2012.htm Performed By: #### C DP, CP, LIP, TSH #### Lab [address] [place] [address] Color Paste Mixer: Raymundo Gaytan DO #### IGA, IGALR, TTIGA #### [address] [address] Color Paste Mixer: Storm Martin MD Albumin [Mass/Vol] 4.1 g/dL Normal 3.5-5.2 [facility] Comment on above: Performed By: #### C DP, CP, LIP, TSH #### Lab [address] [place] [address] Color Paste Mixer: Raymundo Gaytan DO #### IGA, IGALR, TTIGA #### [address] [address] Color Paste Mixer: Storm Martin MD Alkaline Phos 62 U/L Normal 35-104 [facility] Comment on above: Performed By: #### C DP, CP, LIP, TSH #### Lab [address] [place] [address] Color Paste Mixer: Raymundo Gaytan DO #### IGA, IGALR, TTIGA #### [address] [address] Color Paste Mixer: Storm Martin MD ALT [Catalytic activity/Vol] 13 U/L Normal 5-33 [facility] Comment on above: Performed By: #### C DP, CP, LIP, TSH #### Lab [address] [place] [address] Color Paste Mixer: Raymundo Gaytan DO #### IGA, IGALR, TTIGA #### [address] [address] Color Paste Mixer: Storm Martin MD Anion gap [Moles/Vol] 10 mmol/L Normal 9-17 [facility] Comment on above: Performed By: #### C DP, CP, LIP, TSH #### Lab [address] [place] [address] Color Paste Mixer: Raymundo Gaytan DO #### IGA, IGALR, TTIGA #### [address] [address] Color Paste Mixer: Storm Martin MD AST [Catalytic activity/Vol] 15 U/L Normal <32 [facility] Comment on above: Performed By: #### C DP, CP, LIP, TSH #### Lab [address] [place] [address] Color Paste Mixer: Raymundo Gaytan DO #### IGA, IGALR, TTIGA #### [address] [address] Color Paste Mixer: Storm Martin MD Bilirubin Ql (U) 0.43 mg/dL Normal 0.3-1.2 [facility] Comment on above: Performed By: #### C DP, CP, LIP, TSH #### Lab [address] [place] [address] Color Paste Mixer: Raymundo Gaytan DO #### IGA, IGALR, TTIGA #### [address] [address] Color Paste Mixer: Storm Martin MD Calcium [Mass/Vol] 9.0 mg/dL Normal 8.6-10.4 [facility] Comment on above: Performed By: #### C DP, CP, LIP, TSH #### Lab [address] [place] [address] Color Paste Mixer: Raymundo Gaytan DO #### IGA, IGALR, TTIGA #### [address] [address] Color Paste Mixer: Storm Martin MD Chloride [Moles/Vol] 106 mmol/L Normal 98-107 [facility] Comment on above: Performed By: #### C DP, CP, LIP, TSH #### Lab [address] [place] [address] Color Paste Mixer: Raymundo Gaytan DO #### IGA, IGALR, TTIGA #### [address] [address] Color Paste Mixer: Storm Martin MD CO2 [Moles/Vol] 20 mmol/L Normal 20-31 [facility] Comment on above: Performed By: #### C DP, CP, LIP, TSH #### Lab [facility] [place] [address] Color Paste Mixer: Raymundo Gaytan DO #### IGA, IGALR, TTIGA #### [address] [address] Color Paste Mixer: Storm Martin MD Creatinine [Mass/Vol] 0.46 mg/dL Low 0.50-0.90 [facility] Comment on above: Performed By: #### C DP, CP, LIP, TSH #### Lab [address] [place] [address] Color Paste Mixer: Raymundo Gaytan DO #### IGA, IGALR, TTIGA #### [address] [place] [address] Color Paste Mixer: Storm Martin MD GFR, Amer >60 Normal >60 [facility] Comment on above: Performed By: #### C DP, CP, LIP, TSH #### Lab [address] [place] [address] Color Paste Mixer: Raymundo Gaytan DO #### IGA, IGALR, TTIGA #### [address] [address] Color Paste Mixer: Storm Martin MD GFR,non Amer >60 Normal >60 [facility] Comment on above: Performed By: #### C DP, CP, LIP, TSH #### Lab [address] [place] [address] Color Paste Mixer: Raymundo Gaytan DO #### IGA, IGALR, TTIGA #### [address] [address] Color Paste Mixer: Storm Martin MD Glucose [Mass/Vol] 112 mg/dL High 70-99 [facility] Comment on above: Performed By: #### C DP, CP, LIP, TSH #### Lab [address] [place] [address] Color Paste Mixer: Raymundo Gaytan DO #### IGA, IGALR, TTIGA #### [address] [address] Color Paste Mixer: Storm Martin MD Potassium [Moles/Vol] 3.8 mmol/L Normal 3.7-5.3 [facility] Comment on above: Performed By: #### C DP, CP, LIP, TSH #### Lab [address] [place] [address] Color Paste Mixer: Fanelly, Raymundo, DO #### IGA, IGALR, TTIGA #### [address] [address] Color Paste Mixer: Storm Martin MD Protein [Mass/Vol] 6.7 g/dL Normal 6.4-8.3 [facility] Comment on above: Performed By: #### C DP, CP, LIP, TSH #### Lab [facility] [place] [address] Color Paste Mixer: Raymundo Gaytan DO #### IGA, IGALR, TTIGA #### [address] [address] Color Paste Mixer: Storm Martin MD Sodium [Moles/Vol] 136 mmol/L Normal 135-144 [facility] Comment on above: Performed By: #### C DP, CP, LIP, TSH #### Lab [address] [place] [address] Color Paste Mixer: Raymundo Gaytan DO #### IGA, IGALR, TTIGA #### [address] [address] Color Paste Mixer: Storm Martin MD Urea nitrogen [Mass/Vol] 8 mg/dL Normal 6-20 [facility] Comment on above: Performed By: #### C DP, CP, LIP, TSH #### Lab [address] [place] [address] Color Paste Mixer: Raymundo Gaytan DO #### IGA, IGALR, TTIGA #### [address] [address] Color Paste Mixer: Storm Martin MD Albumin/Globulin [Mass ratio] NOT REPORTED Normal 1.0-2.5 [facility] Comment on above: Performed By: #### C DP, CP, LIP, TSH #### Lab [address] [place] [address] Color Paste Mixer: Raymundo Gaytan DO #### IGA, IGALR, TTIGA #### [facility] [address] [place], [place] [phone] Color Paste Mixer: Storm Martin MD BUN/CRE Ratio NOT REPORTED Normal 9-20 [facility] Comment on above: Performed By: #### C DP, CP, LIP, TSH #### Lab [address] [place] [address] Color Paste Mixer: Raymundo Gaytan DO #### IGA, IGALR, TTIGA #### [facility] [address] [place], [place] [id number] Color Paste Mixer: Sotrm Martin MD Staging: NOT REPORTED Normal [facility] Comment on above: Performed By: #### C DP, CP, LIP, TSH #### Lab [address] [place] [address] Color Paste Mixer: Raymundo Gaytan DO #### IGA, IGALR, TTIGA #### [facility] [address] [place] [address] Color Paste Mixer: Storm Martin MD Comprehensive Metabolic Pane [facility] 01-04-2020 Albumin [Mass/Vol] 4.1 g/dL 3.5 - 5.2 g/dL [place] Albumin/Globulin [Mass ratio] NOT REPORTED [place] ALP [Catalytic activity/Vol] 62 U/L 35 - 104 U/L [place] ALT [Catalytic activity/Vol] 13 U/L 5 - 33 U/L [place] Anion gap [Moles/Vol] 10 mmol/L 9 - 17 mmol/L [place] AST [Catalytic activity/Vol] 15 U/L <32 [place] Bilirubin Ql (U) 0.43 mg/dL 0.3 - 1.2 mg/dL [place] Bun/Cre Ratio NOT REPORTED [facility] [place] Calcium [Mass/Vol] 9.0 mg/dL 8.6 - 10. 4 mg/dL [place] Chloride [Moles/Vol] 106 mmol/L 98 - 10 7 mmol/L [place] CO2 [Moles/Vol] 20 mmol/L 20 - 31 mmol/L [place] Creatinine [Mass/Vol] 0.46 mg/dL Low 0.5 - 0.9 mg/dL [place] GFR >60 >60 mL/min [place] GFR Non- >60 >60 mL/min [place] GFR/1.73 sq M predicted among non-blacks MDRD (S/P/Bld) [Vol rate/Area] NOT REPORTED [place] GFR/1.73 sq M predicted among non-blacks MDRD (S/P/Bld) [Vol rate/Area] [place] Comment on above: Average GFR for 20-2 9 years old: 116 mL/min/1.73sq m Chronic Kidney Disease: <60 mL/min/1.73sq m Kidney failure: <15 mL/min/1.73sq m eGFR calculated using average adult body mass. Additional eGFR calculator available at: http://www.[employer]/multiple_crcl_2012.htm Glucose [Mass/Vol] 112 mg/dL High 70 - 99 mg/dL [place] Interpretation and review of laboratory results Abnormal [place] Potassium [Moles/Vol] 3.8 mmol/L 3.7 - 5.3 mmol/L [place] Protein [Mass/Vol] 6.7 g/dL 6.4 - 8.3 g/dL [place] Sodium [Moles/Vol] 136 mmol/L 135 - 144 mmol/L [place] Urea nitrogen [Mass/Vol] 8 mg/dL 6 - 20 mg/dL [place] IGA, Low Rangeon 01-04-2020 Interpretation and review of laboratory results Abnormal [place] IgAon 01-04-2020 IgA [Mass/Vol] Refer to IGA, Low Range for result. Normal 70-400 [facility] Comment on above: Performed By: #### C DP, CP, LIP, TSH #### Lab [address] [place] [address] Color Paste Mixer: Raymundo Gaytan DO #### IGA, IGALR, TTIGA #### [address] [address] Color Paste Mixer: Storm Martin MD IgA [Mass/Vol] Refer to IGA, Low Range for result. 70 - 400 mg/dL [place] IgA, Low Rangeon 01-04-2020 IGA, Low Range 41 mg/dL Low 70-400 [place] Comment on above: Performed By: #### C DP, CP, LIP, TSH #### Lab [address] [place] [address] Color Paste Mixer: Raymundo Gaytan DO #### IGA, IGALR, TTIGA #### [address] [address] Color Paste Mixer: Storm Martin MD Lipaseon 01-04-2020 Lipase [Catalytic activity/Vol] 13 U/L Normal 13-60 [facility] Comment on above: Performed By: #### C DP, CP, LIP, TSH #### Lab [address] [place] [address] Color Paste Mixer: Raymundo Gaytan DO #### IGA, IGALR, TTIGA #### [address] [address] Color Paste Mixer: Storm Martin MD Lipase [Catalytic activity/Vol] 13 U/L 13 - 60 U/L [place] Otheron 01-04-2020 Immature granulocytes (Bld) [#/Vol] NOT REPORTED [place] TSH without Reflexon 020 TSH Qn 3.20 m[IU]/L [place] Thyroid Stim. Horm.on 2019 TSH Qn 3.20 m[IU]/L Normal 0.30-5.00 [facility] Comment on above: Performed By: #### C DP, CP, LIP, TSH #### Lab [address] [place] [address] Color Paste Mixer: Raymundo Gaytan DO #### IGA, IGALR, TTIGA #### [facility] [address] [place] [address] Color Paste Mixer: Storm Martin MD US GALLBLADDER RUQon 020 US GALLBLADDER RUQ EXAMINATION: RIGHT UPPER QUADRANT ULTRASOUND 01/04/2020 7:51 am COMPARISON: None. HISTORY: ORDERING SYSTEM PROVIDED HISTORY: Abdominal pain, epigastric FINDINGS: LIVER: Liver demonstrates mildly coarsened and heterogeneous appearance with slightly increased echogenicity. Liver length is 17.2 cm portal vein dorsal pedal flow. BILIARY SYSTEM: Gallbladder is unremarkable without evidence of pericholecystic fluid, wall thickening or stones. Negative sonographic Colbert's sign. Common bile duct is within normal limits measuring 4 mm. RIGHT KIDNEY: The right kidney is grossly unremarkable without evidence of hydronephrosis. Right renal length is 11.8 cm. PANCREAS: Visualized portions of the pancreas are unremarkable. OTHER: No evidence of right upper quadrant ascites. IMPRESSION: *Liver demonstrates mildly coarsened and heterogeneous appearance with slightly increased echogenicity which may represent mild fatty infiltration and/or other hepatocellular disease such as hepatitis. Recommend correlation with LFTs. *Otherwise unremarkable right upper quadrant ultrasound. Interpreted by: Charles Garrett MD Signed by: Charles Garrett MD 01/04/20 Final result Normal [facility] Cholesterol in LDL [Mass/Vol] *Liver demonstrates mildly coarsened and heterogeneous appearance with slightly increased echogenicity which may represent mild fatty infiltration and/or other hepatocellular disease such as hepatitis. Recommend correlation with LFTs. *Otherwise unremarkable right upper quadrant ultrasound. [place] EXAMINATION: RIGHT UPPER QUADRANT ULTRASOUND 01/04/2020 7:51 am COMPARISON: None. HISTORY: ORDERING SYSTEM PROVIDED HISTORY: Abdominal pain, epigastric FINDINGS: LIVER: Liver demonstrates mildly coarsened and heterogeneous appearance with slightly increased echogenicity. Liver length is 17.2 cm portal vein dorsal pedal flow. BILIARY SYSTEM: Gallbladder is unremarkable without evidence of pericholecystic fluid, wall thickening or stones. Negative sonographic Colbert's sign. Common bile duct is within normal limits measuring 4 mm. RIGHT KIDNEY: The right kidney is grossly unremarkable without evidence of hydronephrosis. Right renal length is 11.8 cm. PANCREAS: Visualized portions of the pancreas are unremarkable. OTHER: No evidence of right upper quadrant ascites. [facility], [facility] Incoming Radiant Results From [employer] - 01/04/2020 8:00 AM EDT EXAMINATION: RIGHT UPPER QUADRANT ULTRASOUND 01/04/2020 7:51 am COMPARISON: None. HISTORY: ORDERING SYSTEM PROVIDED HISTORY: Abdominal pain, epigastric FINDINGS: LIVER: Liver demonstrates mildly coarsened and heterogeneous appearance with slightly increased echogenicity. Liver length is 17.2 cm portal vein dorsal pedal flow. BILIARY SYSTEM: Gallbladder is unremarkable without evidence of pericholecystic fluid, wall thickening or stones. Negative sonographic Colbert's sign. Common bile duct is within normal limits measuring 4 mm. RIGHT KIDNEY: The right kidney is grossly unremarkable without evidence of hydronephrosis. Right renal length is 11.8 cm. PANCREAS: Visualized portions of the pancreas are unremarkable. OTHER: No evidence of right upper quadrant ascites. IMPRESSION: *Liver demonstrates mildly coarsened and heterogeneous appearance with slightly increased echogenicity which may represent mild fatty infiltration and/or other hepatocellular disease such as hepatitis. Recommend correlation with LFTs. *Otherwise unremarkable right upper quadrant ultrasound. [facility] XR ankle LT min 3V* [facility] [place] [address] [place], [place] [id number] XRay Report Signed Patient: Jaye Doss MR#: [id number] : 1990 Acct:[id number] Age/Sex: 28 / F ADM Date: 06/22/18 Loc: XDCLY Room: Type: [facility] Attending Dr: Kari FISHMAN Ordering Provider: Kari Nicolas Date of Service: 06/22/18 XR/XR ankle LT min 3V*: Injury of left ankle, initial encounter Copies to: Kari Nicolas RECEIPT AND REPORT CLERK-C Left ankle 06/22/2018. CLINICAL DATA: Left ankle pain after fall down stairs. CLINICAL DATA: 3 views of the left ankle were obtained. No acute fracture or dislocation is identified. No other bony abnormality is seen. There is an os trigonum. No significant soft tissue swelling is noted. XR/XR ankle LT min 3V* IMPRESSION: No acute bony abnormality. Impression dictated by: Remy Keith Jr., M.D.06/22/2018 7:41 PM Dictation Location: [facility] Transcribed By: [facility] 06/22/181940 Dictated By: Remy Keith MD 06/22/181937 Signed By: 06/22/181940 [facility] Vital Signs Date Time Vital Sign Value Performing Clinician Facility 01-12-2024 10:04-0400 Body mass index (BMI) [Ratio] 48.91 kg/m2 [employer] Work Phone: [facility] 01-12-2024 10:04-0400 Body weight 121.29 kg [employer] Work Phone: [facility] 01-12-2024 10:04-0400 Diastolic blood pressure 70 mm[Hg] [employer] Work Phone: [facility] 01-12-2024 10:04-0400 Systolic blood pressure 120 mm[Hg] [employer] Work Phone: [facility] 12-12-2023 12:16-0400 Body temperature 97.6 [degF] [facility] 12-12-2023 12:16-0400 Diastolic blood pressure 72 mm[Hg] [facility] 12-12-2023 12:16-0400 Heart rate 77 /min [facility] 12-12-2023 12:16-0400 Respiratory rate 16 /min [facility] 12-12-2023 12:16-0400 SaO2% (BldA) [Mass fraction] 98 % [facility] 12-12-2023 12:16-0400 Systolic blood pressure 118 mm[Hg] [facility] 06-21-2023 12:33-0500 Body height 160 cm P[facility] 1 [facility] 06-21-2023 12:33-0500 Body mass index (BMI) [Ratio] 49.6 kg/m2 [facility] 1 [facility] 06-21-2023 12:33-0500 Body weight 127.01 kg Pmh 1 [facility] 06-01-2023 15:26-0500 Body height 160 cm Jessika Schultz DO Work Phone: [facility] 06-01-2023 15:26-0500 Body mass index (BMI) [Ratio] 52.12 kg/m2 Jessika Schultz DO Work Phone: [facility] 06-01-2023 15:26-0500 Body weight 133.45 kg Jessika Schultz DO Work Phone: [facility] 06-01-2023 15:26-0500 Diastolic blood pressure 93 mm[Hg] Jessika Schultz DO Work Phone: [facility] 06-01-2023 15:26-0500 Heart rate 71 /min Jessika Schultz DO Work Phone: [facility] 06-01-2023 15:26-0500 Systolic blood pressure 137 mm[Hg] Jessika Schultz DO Work Phone: [facility] 01-09-2020 11:10-0400 Pulse Oximetry 99 % [facility] 01-09-2020 11:05-0400 BP Diastolic 81 mm[Hg] [facility] 01-09-2020 11:05-0400 BP Systolic 130 mm[Hg] [facility] 01-09-2020 11:05-0400 Pulse (Heart Rate) 70 /min [facility] 01-09-2020 11:05-0400 Respiratory Rate 13 /min [facility] [place], [place] 01-09-2020 11:00-0400 Body Temperature 97.81 [degF] Julian Mcintosh [facility], [place] 01-09-2020 08:53-0400 BMI (Body Mass Index) 42.43 kg/m2 Julian Mcintosh [facility], [place] 01-09-2020 08:53-0400 Body weight 105.23 kg [facility], [place] 01-09-2020 08:53-0400 Height 157.5 cm [facility] Encounters Encounter Date Encounter Type Care Provider Facility Start: 05-09-2024 End: 05-09-2024 Emergency department patient visit JAI SHERIFF [facility] Start: 01-12-2024 End: 01-12-2024 Bamboo flowsheet Ag Abraham DO Work Phone: [facility] Start: 01-12-2024 End: 01-13-2024 Bamboo flowsheet Ag Abraham DO Work Phone: [facility] Start: 01-12-2024 End: 01-13-2024 External Result Encounter Ag Abraham DO Work Phone: [facility] Unsolicited Start: 01-12-2024 End: 01-12-2024 Office outpatient visit 15 minutes Ag Abraham DO Work Phone: [facility] Comment on above: Vaginal pain; UTI symptoms; Pain of ovary Start: 12-12-2023 End: 12-12-2023 Patient encounter procedure [facility] BDM[facility] [id number] Work Phone: Start: 12-12-2023 End: 12-12-2023 ambulatory Yoly Asencio [facility] Work Phone: Start: 12-11-2023 End: 12-11-2023 Emergency department patient visit [facility] Start: 10-06-2023 End: 10-06-2023 Emergency department patient visit TREVOR N SWADE [facility] Start: 07-04-2023 Telephone encounter Marjan Shahid CMA [facility] General Surgery Start: 06-28-2023 End: 06-28-2023 Evaluation and management of inpatient HERMAN BENTON [facility] Start: 06-27-2023 End: 06-28-2023 Evaluation and management of inpatient [facility] Start: 06-27-2023 End: 06-27-2023 Evaluation and management of inpatient [facility] Start: 06-21-2023 End: 06-21-2023 ambulatory Pmh Pat Phone Call Provider 1 [facility] - Pre Admit Start: 06-21-2023 End: 06-21-2023 ambulatory [facility] Start: 06-09-2023 End: 06-10-2023 Emergency department patient visit AMINAH WHITE [facility] Start: 06-02-2023 Telephone encounter Marjan Shahid CMA [facility] General Surgery Start: 06-01-2023 End: 06-01-2023 ambulatory ELGIN Haseeb [facility] Start: 06-01-2023 End: 06-01-2023 Office outpatient new 45 minutes Jessika Haseeb Schultz DO Work Phone: [facility] General Surgery Comment on above: Rectal bleeding (Whitney rene Dx); Morbid obesity with BMI of 50.0-59.9, adult ([facility]); Bipolar 1 disorder ([facility]); Melena; Hematemesis with nausea; Diarrhea, unspecified type; History of endometriosis Start: 08-06-2022 End: 08-06-2022 ambulatory CARLEE READ Facility:[facility] Start: 07-27-2022 Encounter for preprocedural respiratory examination DR AG ROSARIO . [facility] Start: 07-23-2022 End: 07-24-[address] NONE LISTED REQUEST Facility:[facility] Start: 07-23-2022 End: 07-24-2022 Encounter for preprocedural respiratory examination NONE LISTED REQUEST Facility:[facility] Start: 06-29-2022 End: 02-14-[address] NONE LISTED REQUEST Facility:[facility] Start: 06-15-2022 End: 06-16-[address] AG ROSARIO . Facility: Start: 07-23-2020 End: 07-24-2020 ambulatory REFERRED SELF Facility:[facility] Start: 01-09-2020 End: 01-09-2020 Patient encounter procedure JULIAN Fatou [facility] Start: 01-09-2020 End: 01-09-2020 Subsequent hospital visit by physician Julian Mcintosh Work Phone: [facility] Start: 01-05-2020 End: 01-10-2020 Patient encounter procedure CARLEE READ [facility] Start: 01-05-2020 End: 01-09-2020 Subsequent hospital visit by physician Basilia Andino Rm 4 [facility] PRE-ADMIT TESTING Start: 01-04-2020 End: 01-07-2020 Patient encounter procedure [facility] Fatou [facility] Start: 01-04-2020 End: 01-06-2020 Subsequent hospital visit by physician Sofya Ultrasound Rm 105 [facility] Comment on above: Abdominal pain, epig astric Start: 06-22-2018 End: 06-22-2018 Patient encounter procedure Cheryl Reece Facility:[facility] Procedures Date Procedure Procedure Detail Performing Clinician Start: 01-12-2024 URETHRITIS/DISCHARGE PLUS VAGINITIS (HTRX) Ag Rosario DO Work Phone: Start: 01-12-2024 Urnls dip stick/tablet rgnt non-auto w/o micrscp Ag Rosario DO Work Phone: Start: 12-12-2023 X-ray of right foot Start: 06-27-2023 Colonoscopy Marjan Venia [facility] [employer] Start: 01-09-2020 DISCHARGE PATIENT JULIAN PANGULUR Start: 01-09-2020 Level iv surg pathology gross&microscopic exam JULIAN OCASIOGULUR Start: 01-09-2020 ASSESS JULIAN PANGULUR Start: 01-09-2020 BEDREST JULIAN PANGULUR Start: 01-09-2020 Continuous pulse oximetry JULIAN OCASIOGU LUR Start: 01-09-2020 ENCOURAGE DEEP BREATHING AND COUGHING JULIAN PANGULUR Start: 01-09-2020 INITIATE OXYGEN THERAPY PROTOCOL SUDHAKA R PANGULUR Start: 01-09-2020 NOTIFY PHYSICIAN (SPECIFY) JULIAN LEYVA ULUR Start: 01-09-2020 NURSING COMMUNICATION JULIAN PANGULUR Start: 01-09-2020 VITAL SIGNS JULIAN PANGULUR Start: 01-09-2020 Urine test visual color cmprsn meths JULIAN PANGULUR Start: 01-09-2020 INSERT PERIPHERAL IV JULIAN PANGULUR Start: 01-09-2020 Urine test visual color cmprsn meths Julian N Pangulur Work Phone: Start: 01-05-2020 COVID-19 AMBULATORY CARLEE READ Start: 01-05-2020 COVID-19 AMBULATORY Hunter Quiles Work Phone: Start: 01-04-2020 COVID-19 CARLEE READ Start: 01-04-2020 Esophagogastroduodenoscopy JULIAN GORDON ULUR Start: 01-04-2020 Assay of gammaglobulin iga igd igg igm each JULIAN PANGULUR Start: 01-04-2020 Assay of lipase JULIAN PANGULUR Start: 01-04-2020 Assay of thyroid stimulating hormone tsh JULIAN PANGULUR Start: 01-04-2020 Blood count complete auto&auto difrntl wbc JULIAN PANGULUR Start: 01-04-2020 Comprehensive metabolic panel JULIAN MATTA Start: 01-04-2020 IGA, LOW RANGE JULIAN PANGULUR Start: 01-04-2020 Immunoassay analyte qual/semiqual multiple step JULIAN PANGULUR Start: 01-04-2020 Us abdominal real time w/image limited JULIAN PANGULUR Start: 01-04-2020 Assay of gammaglobulin iga igd igg igm each Julian N Pangulur Work Phone: Start: 01-04-2020 Assay of lipase Julian N Pangulur Work Phone: Start: 01-04-2020 Assay of thyroid stimulating hormone tsh Julian N Pangulur Work Phone: Start: 01-04-2020 Blood count complete auto&auto difrntl wbc Julian Mcintosh Work Phone: Start: 01-04-2020 Comprehensive metabolic panel Julian Mcintosh Work Phone: Start: 01-04-2020 IGA, LOW RANGE Julian Mcintosh Work Phone: Start: 01-04-2020 Us abdominal real time w/image limited Julian Mcintosh Work Phone: Plan of Treatment Date Care Activity Detail Author Start: 06-27-2028 Screening for malignant neoplasm of colon Colonoscopy [facility] Start: 06-27-2024 Adult BMI Screening Adult BMI Screening [facility] Start: 06-27-2024 Tobacco Screening Tobacco Screening [facility] Start: 06-21-2024 Adult BMI Screening Adult BMI Screening [facility] Start: 06-21-2024 Tobacco Screening Tobacco Screening [facility] Start: 06-02-2024 Tobacco Screening Tobacco Screening [facility] Start: 06-01-2024 Adult BMI Screening Adult BMI Screening [facility] Start: 06-01-2024 Tobacco Screening Tobacco Screening [facility] Start: 03-08-2024 End: 03-08-2024 Patient encounter procedure 03/08/2024 10:00 AM EDT Of fice Visit [facility] [address] [place] [address] Ag Rosario, [address] [place] [address] [facility] Start: 01-26-2024 End: 01-26-2024 Professional / ancillary services management 01/26/2024 9:30 AM EDT Ancillary Procedure [facility] [address] [place] [id number] [facility] Start: 01-12-2024 End: 01-11-2025 US for US PELVIS-TRANSVAG IF INDICATED Imaging Routine Vaginal pain Pain of ovary Expected: 01/12/2024 (Approximate), Expires: 01/11/2025 [facility] Work Phone: Comment on above: Expected: 01/12/2024 (Approximate), Expi res: 01/11/2025 Start: 09-16-2023 DTaP,Tdap and Td Vaccines (2 - Td or Tdap) DTaP,Tdap and Td Vaccines (2 - Td or Tdap) [facility] Start: 06-27-2023 End: 06-27-2023 Admission to same day surgery center 06/27/2023 8:30 AM EST - 06/27/2023 9:15 AM [facility] Surgery [facility] [address] [place] [address] Jessika Schultz, DO [address], [place] [id number] ESOPHAGOGASTRODUODENOSCOPY DIAGNOSTIC [46335 (CPT )] [facility] Comment on above: ESOPHAGOGASTRODUODENOSCOPY DIAGNOSTIC [4 3235 (CPT )] Start: 06-27-2023 End: 06-27-2023 Colonoscopy flx dx w/collj spec when pfrmd COLONOSCOPY DIAGNOSTIC / SCREENING rectal bleeding, diarrhea, melena, hemoptysis, nausea 06/27/2023 8:30 AM [facility] Start: 06-27-2023 End: 06-27-2023 Esophagogastroduodenoscopy transoral diagnostic ESOPHAGOGASTRODUODENOSCOPY DIAGNOSTIC rectal bleeding, diarrhea, melena, hemoptysis, nausea 06/27/2023 8:30 AM [facility] Start: 06-27-2023 Subsequent hospital visit by physician 06/27/2023 8:30 AM EST Hospital Encounter [facility] [address] [place] [address] Jessika Schultz, DO [address] [place] [address] [facility] Start: 06-21-2023 End: 06-21-2023 ambulatory 06/21/2023 3:20 PM EST Suppo rt Visit [facility] - Pre Admit [address] [place] [address] [facility] - Pre Admit Start: 01-14-2023 Influenza vaccination Influenza Vaccine [facility] Start: 01-15-2020 Influenza vaccination Flu vaccine (#1) [place], [place] Start: 01-09-2020 End: 01-09-2020 Hospital Encounter [facility] Comment on above: EGD ESOPHAGOGASTRODUODENOSCOPY Start: 01-05-2020 Hospital Encounter 01/05/2020 Hospital Encounte r Pre-Admission Testing Arrived [facility] Comment on above: Arrived Start: 2013 Screening for malignant neoplasm of cervix [facility] Start: 2011 DTaP/Tdap/Td vaccine (1 - Tdap) DTaP/Tdap/Td vaccine (1 - Tdap) [place] Start: 2010 Adult BMI Follow Up Plan Adult BMI Follow Up Plan [facility] Start: 2007 HIV screening HIV screen [place], [place] Start: 2004 Depression Screening Depression Screening [facility] Start: 1998 Pneumococcal 0-64 years Vaccine (1 of 1 - PPSV23) Pneumococcal 0-64 years Vaccine (1 of 1 - PPSV23) [place] Start: 1993 Varicella vaccine (1 of 2 - 2-dose childhood series) Varicella vaccine (1 of 2 - 2-dose childhood series) [place] Start: 1992 Tobacco Counseling Tobacco Counseling [facility] CHLAMYDIA TRACHOMATI S (GENITO/STI) CHLAMYDIA TRACHOMATIS (GENITO/STI) Lab Routine Vaginal pain Pain of ovary Ordered: 01/12/2024 [facility] Comment on above: Ordered: 01/12/2024 End: 05-31-2024 Colonoscopy Colonoscopy GI Routine Recta l bleeding Diarrhea, unspecified type 1 Occurrences starting 06/01/2023 until 05/31/2024 [facility] Work Phone: Comment on above: 1 Occurrences starting 06/01/2023 until 05/31/2024 End: 01-05-2020 COVID-19 COVID-19 Lab Routine Tomorro w AM for 1 Occurrences starting 01/05/2020 until 01/05/2020 [facility] Comment on above: Tomorrow AM for 1 Occurrences starting 0 01/05/2020 until 01/05/2020 End: 01-04-2020 Esophagogastroduodenoscopy EGD GI Routine Abdominal pa in, epigastric 1 Occurrences starting 01/04/2020 until 01/04/2020 [facility] Comment on above: 1 Occurrences starting 01/04/2020 until 01/04/2020 End: 05-31-2024 Esophagogastroduodenoscopy EGD GI Routine Melena Hematemesis with nausea 1 Occurrences starting 06/01/2023 until 05/31/2024 [facility] Comment on above: 1 Occurrences starting 06/01/2023 until 05/31/2024 Neisseria gonorrhoea e DNA [Presence] in Unspecified specimen by ANTONIO with probe detection Neisseria gonorrhea DNA probe, direct Lab Routine Vaginal pain Pain of ovary Ordered: 01/12/2024 [facility] Comment on above: Ordered: 01/12/2024 Oxygen therapy [[facility] Data Set] Initiate Oxygen Therapy Protocol Respiratory Care Routine Daily until discontinued starting 01/09/2020 [facility] [place] Comment on above: Daily until discontinued starting 2019 Phase I & II - metered glucose P hase I & II - metered glucose Point of Care Testing Routine As Needed until discontinued starting 01/09/2020 [facility] [place] Comment on above: As Needed until discontinued starting SURESWAB(R) ADVANCED VAGINITIS PLUS, TMA SURESWAB(R) ADVANCED VAGINITIS PLUS, TMA Pathology and Cytology Routine Vaginal pain Pain of ovary Ordered: 01/12/2024 [facility] Comment on above: Ordered: 01/12/2024 Surgical Pathology Surgical Path ology Lab Routine Release Upon Ordering for 1 Occurrences starting 01/09/2020 [facility] [place] Comment on above: Release Upon Ordering for 1 Occurrences starting 01/09/2020 End: 01-04-2020 Tissue Transglutaminase, IgA Tissue Transglutaminase, IgA Lab Routine Abdominal pain, epigastric 1 Occurrences starting 01/04/2020 until 01/04/2020 [facility] Comment on above: 1 Occurrences starting 01/04/2020 until 01/04/2020 Tissue Transglutaminase, IgA Tis alden Transglutaminase, IgA Lab Routine Abdominal pain, epigastric 01/04/2020 7:52 AM EDT Yesica [facility] [place] LATIF Payers Date Payer Category Payer Medicare [id number] 2023 Medicare [id number] 2021 Medicaid MEDICAID [facility] EDICAID [id number] 2021-Present [phone] [address] [place] [address] [id number] 2018 Self-pay 2017 Unknown [id number] 1992 Unknown [id number] [id number] 1992 Unknown [id number] 2.16.840.1.050127.3.579.2.176 1992 Unknown [id number] 2.16.840.1.596315.3.579.2.176 1992 Unknown [id number] 2.16.840.1.199311.3.579.2.176 1992 Unknown [id number] 2.16.840.1.968618.3.579.2.647 1992 Unknown [id number] 2.16.840.1.608725.3.579.2.593 1992 Unknown [id number] 2.16.840.1.449117.3.579.2.593 1992 Unknown [id number] 2.16.840.1.588097.3.579.2.593 1992 Unknown [id number] 2.16.840.1.717864.3.579.2.593 1992 Unknown [id number] 2.16.840.1.418913.3.579.2.1286 1992 Unknown [id number] 2.16.840.1.745237.3.579.2.173 1992 Unknown [id number] 2.16.840.1.074683.3.579.2.204 1992 Unknown [id number] 2.16.840.1.650697.3.579.2.204 1992 Unknown [id number] 2.16.840.1.674468.3.579.2.1286 1992 Unknown [id number] 2.16840.1.582537.3.579.2.1286 1992 Unknown [id number] 2.16840.1.279599.3.579.2.1286 1992 Unknown [id number] 2.16840.1.375743.3.579.2.1286 1992 Unknown [id number] 2.840.1.161174.3.579.2.1286 1992 Unknown [id number] 2.16840.1.889428.3.579.2.1286 1992 Unknown [id number] 2.16840.1.608265.3.579.2.1286 1992 Unknown [id number] 2.16840.1.428727.3.579.2.1286 1992 Unknown [id number] 2.840.1.600401.3.579.2.1286 1959 Medicaid [id number] 1957 Medicare [id number] Unknown [id number] [id number] Social History Date Type Detail Facility Start: 01-03-2020 End: 06-01-2023 Tobacco smoking status [facility] Current every day smoker [facility] [place] Start: 12-30-2010 History of tobacco use Cigarette Smo ker [facility] [place] Start: 01-03-2020 End: 06-26-2020 Cigarettes smoked current (pack per day) - Reported [facility] Start: 01-03-2020 End: 06-01-2023 Tobacco use and exposure [facility] Start: 01-03-2020 End: 01-12-2024 Alcohol intake Lifetime non-drinker (finding) [facility] Start: 12-31-2019 History SDOH Alcohol Frequency 1 [facility] [place] Start: 03-21-2011 Alcohol Comment 2-3 x monthly [facility] Start: 1992 Sex Assigned At Not on file [place] Exposure to SARS-CoV -2 (event) Not sure [place], [place] Start: 1992 Sex Assigned At [facility] Start: 06-26-2020 End: 02-11-2023 Tobacco use panel [facility] Start: 10-06-2022 Education 13 [facility] Start: 10-06-2022 Tobacco Comment 6-10 cigs a day. [facility] Start: 10-06-2022 Alcohol Comment Caffeine intak e: 2-3 cups per day of coffee [facility] History of tobacco use Tobacco U se Types Packs/Day Years Used Date Smoking Tobacco: Every Day Vaping/E-cigarettes Smokeless Tobacco: Never [facility] Start: 06-02-2023 End: 06-28-2023 Alcohol intake Current non-drinker of alcohol (finding) [facility] Housing Instability Unknown [facility] Clinical Notes 08-06-2022 to 01-12-2024 Liz Medina LPN - 01/12/2024 9:40 AM EDTTelephone Encounter - Marjan Shahid, [facility] - 07/04/2023 10:53 AM ESTTelephone Encounter - Marjan Shahid, [facility] - 07/04/2023 10:53 AM EST Note Date & Type Note Facility 01-12-2024 History of Presen t illness Narrative Reason for Appointment: Patient ID: Jaye Doss is a 33 y.o. female who presents for Vaginal Pain (Urinay incontinence/) Patient presents today for Consult appointment. MEDICATIONS Current Outpatient Medications Medication Instructions albuterol (ProAir RespiClick) 90 mcg/act breath-activated inhaler INHALE 2 PUFFS INTO THE LUNGS EVERY 4 6 HOURS NEEDED FOR SHORTNESS OF BREATH busPIRone (BUSPAR) 30 mg, Oral, 2 times daily ALLERGIES Allergies Allergen Reactions Lamotrigine Unknown and Other Johnson Latex Hives Penicillins Rash and Other Other Reaction(s): Hives/ rash Rash over entire body PROBLEMS Active Ambulatory Problems Diagnosis Date Noted No Active Ambulatory Problems Resolved Ambulatory Problems Diagnosis Date Noted No Resolved Ambulatory Problems Past Medical History: Diagnosis Date ADD (attention deficit disorder) Anxiety Anxiety and depression (CMS/HCC) Chronic bronchitis (CMS/HCC) Cystitis Depression (CMS/HCC) Dysmenorrhea Dyspareunia in female Fibromyalgia Hematuria, gross History of abnormal cervical Pap smear History of bilateral tubal ligation History of migraine headaches Menorrhagia with regular cycle Migraines (CMS/HCC) Morbid obesity with BMI of 40.0-44.9, adult (CMS/HCC) Nausea & vomiting Pain Pain pelvic Panic attack (CMS/HCC) Seasonal allergies Stress incontinence Tearfulness HISTORY PAST MEDICAL HISTORY SOCIAL HISTORY Past Medical History: Diagnosis Date ADD (attention deficit disorder) Anxiety Anxiety and depression (CMS/HCC) Chronic bronchitis (CMS/HCC) Cystitis Depression (CMS/HCC) Dysmenorrhea Dyspareunia in female Fibromyalgia Hematuria, gross History of abnormal cervical Pap smear ASCUS - HPV History of bilateral tubal ligation History of migraine headaches Menorrhagia with regular cycle Migraines (CMS/HCC) Morbid obesity with BMI of 40.0-44.9, adult (CMS/HCC) Nausea & vomiting Pain Pain pelvic Panic attack (CMS/HCC) Seasonal allergies Stress incontinence Tearfulness Social History Tobacco Use Smoking status: Every Day Types: Cigarettes Smokeless tobacco: Not on file Tobacco comments: 6-10 cigs a day. Substance Use Topics Alcohol use: Never Comment: Caffeine intake: 2-3 cups per day of coffee Drug use: Never FAMILY HISTORY Family History Problem Relation Name Age of Onset Diabetes Mother Depression Mother Diabetes Father Hypertension Father Hyperlipidemia Father Stroke Father Mental illness Father Cancer Father ADD / ADHD Daughter No Known Problems Son Alcohol abuse Mother's Brother Diabetes Maternal Grandmother Hypertension Maternal Grandmother Skin cancer Maternal Grandmother Alcohol abuse Maternal Grandfather Allergies Maternal Grandfather seasonal Kidney cancer Maternal Grandfather Other (Other) Other substance abuse & agression SURGICAL HISTORY Past Surgical History: Procedure Laterality Date DILATION AND CURETTAGE HYSTERECTOMY 01/05/2023 Da Meagan MULTIPLE TOOTH EXTRACTIONS 07/2018 x6 OTHER SURGICAL HISTORY 08/06/2022 Katy ablation w/hysteroscopy w/removal of IUD SALPINGECTOMY Bilateral 2018 SKIN LESION EXCISION Right upper arm VAGINAL DELIVERY REVIEW OF SYSTEMS Review of Systems: Review of Systems Genitourinary: Positive for pelvic pain. All other systems reviewed and are negative. OBJECTIVE Objective: Physical Exam Constitutional: Appearance: Normal appearance. She is well-developed. Genitourinary: Vulva normal. Cardiovascular: Rate and Rhythm: Normal rate and regular rhythm. Pulmonary: Effort: Pulmonary effort is normal. Breath sounds: Normal breath sounds. Abdominal: General: Bowel sounds are normal. There is no distension. Palpations: Abdomen is soft. Tenderness: There is no abdominal tenderness. There is no guarding or rebound. Musculoskeletal: General: No swelling. Normal range of motion. Right lower leg: No edema. Left lower leg: No edema. Neurological: Mental Status: She is alert and oriented to person, place, and time. Skin: General: Skin is warm and dry. Psychiatric: Mood and Affect: Mood normal. Behavior: Behavior normal. Vitals and nursing note reviewed. Exam conducted with a gold blower present. Vitals: Estimated body mass index is 48.91 kg/m as calculated from the following: Height as of 02/15/23: 5' 2 . Weight as of this encounter: 267 lb 6.4 oz. BP: 120/70 No LMP recorded (lmp unknown). Patient has had a hysterectomy. ASSESSMENT & PLAN ICD-10-CM 1. Vaginal pain R10.2 2. UTI symptoms R39.9 POCT urinalysis dipstick manually resulted Patient presents today for pelvic floor pain, ovary pain and urinary frequency/incontinence. Pelvic exam WNL and patient voiced that she feels as though urinary incontinence is psychosomatic. Patient complaints of diarrhea as well. Patient to have ultrasound obtained to assess for pelvic pain. Patient to setup appointment for US prior to leaving office. Patient to return to clinic for annual and PRN. Documented by Liz Medina LPN on behalf of: Ag Rosario DO documented in this encounter [facility] 07-04-2023 Miscellaneous Notes ----- Message from Jessika Schultz DO sent at 06/30/2023 7:05 AM EST ----- Please let patient know that all upper endoscopy biopsies were negative and that she had a precancerous polyp in her colon and I recommend surveillance colonoscopy in 5 years unless problems. Thanks, Dr. Ambrosio Spoke with patient regarding pathology results. Patient verbally understood. Patient did ask what to do if the bleeding recurred. I informed patient that she should go to the ER if she were to start bleeding again. Patient verbally understood with no further questions. documented in this encounter [facility] 07-04-2023 Telephone encounter Note ----- Message from Jessika Schultz DO sent at 06/30/2023 7:05 AM EST ----- Please let patient know that all upper endoscopy biopsies were negative and that she had a precancerous polyp in her colon and I recommend surveillance colonoscopy in 5 years unless problems. Thanks, Dr. Ambrosio [facility] 07-04-2023 Telephone encounter Note Spoke with patient regarding pathology results. Patient verbally understood. Patient did ask what to do if the bleeding recurred. I informed patient that she should go to the ER if she were to start bleeding again. Patient verbally understood with no further questions. [facility] 06-21-2023 Nurse Note Preoperative Education Checklist- General Surgery date: 06/27/23 Surgery time: 830a Arrival time: 630a 1. Bring a photo ID and your insurance card with you the day of surgery. You will check in at the main lobby of the [facility]- registration desk is straight ahead as soon as you walk in. Tell them you are here for surgery. 2. If you have a Living Will/Durable Power of [place] Operator for Health Care that is not on file here, please bring a copy the day of surgery. 3. Please shower/bathe the night before surgery with the provided soap or wipes. Do not shower the morning of surgery- you will do use wipes when you arrive here at the hospital before getting into your surgical gown. Do not shave the area of your procedure for 2 days prior to your surgery. 4. NO powder, lotion, perfume/cologne, aftershave, make-up, deodorant, or hair products after you have bathed. 5. NO nail macanese/acrylic on at least one finger. If you are having a hand, wrist or foot surgery then all nail macanese and artificial/acrylic nails must be removed from that hand or foot. 6. Avoid ALL Aspirin and non-steroidal anti-inflammatory drugs and certain vitamins (Ibuprofen, Advil, Aleve, Excedrin, Meloxicam, Celebrex, fish/krill oil, etc.) for 7 days prior to surgery as instructed by your surgeon and/or your prescribing doctor. Tylenol IS ALLOWED. If you are on Ticlid, Xarelto, Eliquis, Pradaxa, Plavix or Coumadin, please check with your prescribing doctor for instructions for when to stop them. 7. If you use an inhaler, continue to use it routinely. 8. Nothing to eat or drink (not even water, gum, mints, or hard candy!) AFTER midnight prior to your surgery. 9. Take only medications that you are instructed to on the morning of surgery with a TINY SIP OF WATER. 10. Choose a responsible adult that will be able to drive you home when you are discharged from your hospital stay for your surgery and can stay with you in your home for 24 hours after your procedure. You must NOT drive any vehicle or operate any machinery for 24 hours after surgery. 11. When you dress for your appointment, please wear loose fitting clothing that is appropriate to accommodate your surgical area procedure. BRING WITH YOU ANY DEVICES YOU MAY NEED: TRINA hose, ice machine, sling/swath, brace or special shoe, oversized zip-up or button up shirt, CPAP machine if staying overnight. 12. Do NOT wear jewelry, watches, or any piercings or metal for surgery- leave these valuables and money at home. 13. Do NOT wear contact lenses for surgery- glasses are okay if needed. 14. The anesthesiologist will talk with you the day of surgery and will ask you to sign a Consent Form. 15. Refrain from smoking or any type of tobacco use for at least 8 hours and marijuana for 24 hours prior to arrival for your surgery. 16. If a GREEN BLOOD band is given to you, please bring it with you for the day of surgery. 17. Notify your surgeon if you develop any illness before your surgery. 18. If you are staying overnight, please DO NOT BRING your home medications with you. 19. If you have any questions prior to surgery, please call the Preadmission Testing office at [phone], Mon.-Fri. 7 a.m.-3 p.m. Leave a voicemail if needed. Pre-Surgery Instructions: Medication Instructions busPIRone (BUSPAR) 30 mg tablet Stop taking 0 days prior to procedure FLUoxetine (PROzac) 40 mg capsule Stop taking 0 days prior to procedure lithium 600 MG capsule Stop taking 0 days prior to procedure OLANZapine (ZyPREXA) 10 mg tablet Stop taking 0 days prior to procedure omeprazole (PriLOSEC) 20 mg capsule Stop taking 0 days prior to procedure ondansetron (ZOFRAN) 4 mg tablet Stop taking 0 days prior to procedure loratadine (CLARITIN) 10 mg tablet Stop taking 0 days prior to procedure MUCUS RELIEF ER 600 mg tablet extended release 12hr Stop taking 0 days prior to procedure prazosin (MINIPRESS) 5 mg capsule Stop taking 0 days prior to procedure SUMAtriptan (IMITREX) 50 mg tablet Stop taking 0 days prior to procedure XANAX 0.5 mg tablet Stop taking 0 days prior to procedure [facility] 06-21-2023 Miscellaneous Notes Preoperative Education Checklist- General Surgery date: 06/27/23 Surgery time: 830a Arrival time: 630a 1. Bring a photo ID and your insurance card with you the day of surgery. You will check in at the main lobby of the [facility]- registration desk is straight ahead as soon as you walk in. Tell them you are here for surgery. 2. If you have a Living Will/Durable Power of [employer] Operator for Health Care that is not on file here, please bring a copy the day of surgery. 3. Please shower/bathe the night before surgery with the provided soap or wipes. Do not shower the morning of surgery- you will do use wipes when you arrive here at the hospital before getting into your surgical gown. Do not shave the area of your procedure for 2 days prior to your surgery. 4. NO powder, lotion, perfume/cologne, aftershave, make-up, deodorant, or hair products after you have bathed. 5. NO nail macanese/acrylic on at least one finger. If you are having a hand, wrist or foot surgery then all nail macanese and artificial/acrylic nails must be removed from that hand or foot. 6. Avoid ALL Aspirin and non-steroidal anti-inflammatory drugs and certain vitamins (Ibuprofen, Advil, Aleve, Excedrin, Meloxicam, Celebrex, fish/krill oil, etc.) for 7 days prior to surgery as instructed by your surgeon and/or your prescribing doctor. Tylenol IS ALLOWED. If you are on Ticlid, Xarelto, Eliquis, Pradaxa, Plavix or Coumadin, please check with your prescribing doctor for instructions for when to stop them. 7. If you use an inhaler, continue to use it routinely. 8. Nothing to eat or drink (not even water, gum, mints, or hard candy!) AFTER midnight prior to your surgery. 9. Take only medications that you are instructed to on the morning of surgery with a TINY SIP OF WATER. 10. Choose a responsible adult that will be able to drive you home when you are discharged from your hospital stay for your surgery and can stay with you in your home for 24 hours after your procedure. You must NOT drive any vehicle or operate any machinery for 24 hours after surgery. 11. When you dress for your appointment, please wear loose fitting clothing that is appropriate to accommodate your surgical area procedure. BRING WITH YOU ANY DEVICES YOU MAY NEED: TRINA hose, ice machine, sling/swath, brace or special shoe, oversized zip-up or button up shirt, CPAP machine if staying overnight. 12. Do NOT wear jewelry, watches, or any piercings or metal for surgery- leave these valuables and money at home. 13. Do NOT wear contact lenses for surgery- glasses are okay if needed. 14. The anesthesiologist will talk with you the day of surgery and will ask you to sign a Consent Form. 15. Refrain from smoking or any type of tobacco use for at least 8 hours and marijuana for 24 hours prior to arrival for your surgery. 16. If a GREEN BLOOD band is given to you, please bring it with you for the day of surgery. 17. Notify your surgeon if you develop any illness before your surgery. 18. If you are staying overnight, please DO NOT BRING your home medications with you. 19. If you have any questions prior to surgery, please call the Preadmission Testing office at [phone], Mon.-Fri. 7 a.m.-3 p.m. Leave a voicemail if needed. Pre-Surgery Instructions: Medication Instructions busPIRone (BUSPAR) 30 mg tablet Stop taking 0 days prior to procedure FLUoxetine (PROzac) 40 mg capsule Stop taking 0 days prior to procedure lithium 600 MG capsule Stop taking 0 days prior to procedure OLANZapine (ZyPREXA) 10 mg tablet Stop taking 0 days prior to procedure omeprazole (PriLOSEC) 20 mg capsule Stop taking 0 days prior to procedure ondansetron (ZOFRAN) 4 mg tablet Stop taking 0 days prior to procedure loratadine (CLARITIN) 10 mg tablet Stop taking 0 days prior to procedure MUCUS RELIEF ER 600 mg tablet extended release 12hr Stop taking 0 days prior to procedure prazosin (MINIPRESS) 5 mg capsule Stop taking 0 days prior to procedure SUMAtriptan (IMITREX) 50 mg tablet Stop taking 0 days prior to procedure XANAX 0.5 mg tablet Stop taking 0 days prior to procedure documented in this encounter [email or web address] 06-02-2023 Miscellaneous Notes ----- Message from Jessika Schultz DO sent at 06/02/2023 11:12 AM EST ----- Regarding: RE: Gastroentestinal Hemorrhaging/Vomit Have her try taking omeprazole OTC b.i.d. until we get her scoped. If she gets worse she can go to the ED but not impressed yesterday and her hemoglobin was stable. Thanks, Dr. Ambrosio ----- Message ----- From: Marjan Shahid CMA Sent: 06/02/2023 11:07 AM EST To: Jessika Schultz DO Subject: Gastroentestinal Hemorrhaging/Vomit Hello, You saw this patient yesterday for vomiting up blood. She called stating she is still having this problem and wondered if there is anything she can do to alleviate these symptoms? She is very uncomfortable. Thank you, Marjan Informed patient. Patient verbally understood with no further questions. documented in this encounter [facility] 06-02-2023 Telephone encounter Note ----- Message from Jessika Schultz DO sent at 06/02/2023 11:12 AM EST ----- Regarding: RE: Gastroentestinal Hemorrhaging/Vomit Have her try taking omeprazole OTC b.i.d. until we get her scoped. If she gets worse she can go to the ED but not impressed yesterday and her hemoglobin was stable. Thanks, Dr. Ambrosio ----- Message ----- From: Marjan Shahid CMA Sent: 06/02/2023 11:07 AM EST To: Jessika Schultz DO Subject: Gastroentestinal Hemorrhaging/Vomit Hello, You saw this patient yesterday for vomiting up blood. She called stating she is still having this problem and wondered if there is anything she can do to alleviate these symptoms? She is very uncomfortable. Thank you, Marjan [facility] 06-02-2023 Telephone encounter Note Informed patient. Patient verbally understood with no further questions. [facility] 06-01-2023 History of Presen t illness Narrative Images from the original note were not included. [facility] [address] [id number] CONSULT NOTE Jaye Doss 32 y.o. hematemesis, melena, diarrhea, and epigastric pain. She was seen in the [place] ED in March for same. She is vomited at least 4 times every day for the past year. At least 4 times each week is hematemesis. She has not have hematemesis every time she vomits. She claims she has anemia and takes an iron supplement. She began having black tarry stools about 3 months ago. She also noticed chunks of blood clot in the toilet bowl. She was initially having 4-5 times every week but is now occurring 2-3 times every week. She was seen at [facility] for melena in March 2023. They collected a stool sample which was negative for blood and sent home. Denies family history of colorectal cancer. She also claims she has diarrhea every time she passes stool for the past 6 months. This is accompanied by loss of appetite. Her diet consists of very little meat and mostly salad nuts and fruit. She also describes middle sharp 7/10 epigastric pain. Pain radiates to her left lower quadrant and is constant. Her last colonoscopy was approximately 4 years ago because of epigastric pain. This was done at [facility] in [place]. She does not believe there were any abnormal results. She was told the epigastric pain is due to her weight. She was told to lose 20 lb and come back for repeat colonoscopy in 4 months which she did not do.She has never had an EGD. She had a laparoscopic hysterectomy in December 2022 due to endometriosis. Denies any other abdominal surgeries. She has a history of psychiatric disorders including PTSD, bipolar disorder, and borderline personality disorder taking several medications including lithium. Her PCP is Dr. Fidelia Carty at [facility] in [place]. She vapes every 3-4 hours for the past 3 years. She has a 16 pack year history but quit smoking cigarettes 4 years ago. Denies alcohol use. She does vape marijuana occasionally. She claims she does this for her anxiety. CHIEF COMPLAINT Chief Complaint Patient presents with GI Bleeding GI bleed, [facility] ER 04/06/23 MEDICATION Current Outpatient Medications: busPIRone (BUSPAR) 30 mg tablet, Take 0.5 tablets (15 mg total) by mouth in the morning and 0.5 tablets (15 mg total) before bedtime., Disp: , Rfl: FLUoxetine (PROzac) 40 mg capsule, Take 1 capsule (40 mg total) by mouth in the morning., Disp: , Rfl: lithium 600 MG capsule, Take 1 capsule (600 mg total) by mouth in the morning and 1 capsule (600 mg total) in the evening. Take with meals., Disp: , Rfl: loratadine (CLARITIN) 10 mg tablet, Take 1 tablet (10 mg total) by mouth daily as needed., Disp: , Rfl: MUCUS RELIEF ER 600 mg tablet extended release 12hr, Take 1 tablet (600 mg total) by mouth every 12 (twelve) hours as needed., Disp: , Rfl: OLANZapine (ZyPREXA) 10 mg tablet, Take 1 tablet (10 mg total) by mouth nightly., Disp: , Rfl: ondansetron (ZOFRAN) 4 mg tablet, Take 1 tablet (4 mg total) by mouth 2 (two) times a day as needed., Disp: , Rfl: prazosin (MINIPRESS) 5 mg capsule, Take 1 capsule (5 mg total) by mouth nightly., Disp: , Rfl: SUMAtriptan (IMITREX) 50 mg tablet, Take by mouth., Disp: , Rfl: XANAX 0.5 mg tablet, Take 1 tablet (0.5 mg total) by mouth 3 (three) times a day., Disp: , Rfl: peg 3350-sod sulf,arld-jvv-jas 178.7-7.3-0.5 gram recon soln, Take 1 kit by mouth in the morning for 1 dose. Please see instructional sheet given by Physicians office., Disp: 1 each, Rfl: 0 ALLERGY Allergies Allergen Reactions Adhesive Other (See Comments) Adhesive rips skin off causes it to bleed Codeine Rash Lamictal [Lamotrigine] Latex Hives Amoxicillin Rash Rash over entire body Penicillins Rash Rash over entire body MEDICAL HISTORY Past Medical History: Diagnosis Date Anxiety Borderline personality disorder ([facility]) Depression GERD (gastroesophageal reflux disease) Manic bipolar I disorder ([facility]) Nephrolithiasis 04/20/2019 PTSD (post-traumatic stress disorder) SURGICAL HISTORY Past Surgical History: Procedure Laterality Date HYSTERECTOMY TUBAL LIGATION WISDOM TOOTH EXTRACTION SOCIAL HISTORY Social History Socioeconomic History Marital status: Spouse name: Not on file Number of children: Not on file Years of education: Not on file Highest education level: Not on file Occupational History Not on file Tobacco Use Smoking status: Every Day Types: Vaping/E-cigarettes Smokeless tobacco: Never Vaping Use Vaping Use: Every day Substances: Nicotine Devices: Disposable Substance and Sexual Activity Alcohol use: No Drug use: Yes Types: Marijuana Comment: medical card Sexual activity: Yes Partners: Male control/protection: Surgical Other Topics Concern Not on file Social History Narrative Not on file Social Determinants of Health Financial Resource Strain: Not on file Food Insecurity: No Food Insecurity (06/01/2023) Hunger Screening Food Insecurity - Worry: Never True Food Insecurity - Inability: Never True Transportation Needs: Not on file Physical Activity: Not on file Stress: Not on file Social Connections: Not on file Interpersonal Safety: Not on file FAMILY HISTORY Family History Problem Relation Age of Onset Diabetes Mother No Known Problems Father REVIEW OF SYSTEMS: Constitutional: Denies fevers, denies recent illnesses. Eyes: Denies any vision changes. ENT: Denies any throat pain. Neck: Denies any neck pain. Cardiovascular denies chest pain. Denies palpitations. Respiratory: Denies shortness of breath, denies cough, denies history of asthma or any other pulmonary illnesses. Gastrointestinal: See chief complaint Genitourinary negative for dysuria hematuria urinary frequency or urgency. Musculoskeletal: Negative for extremity pains or joint discomfort. Neurologic: No change in sensation or paresthesias or history of seizure disorder skin: No rashes. Hematologic: No anemia. No purpura. No petechiae and no prolonged or excessive bleeding Allergic and immunologic: No pruritus. No swelling. Endocrine: No unexplained weight loss. No polydipsia. No polyuria. No polyphagia. PHYSICAL EXAM Constitutional: She is oriented to person, place, and time. Vital signs are normal. She appears well-developed and well-nourished. HEENT: Head: Normocephalic and atraumatic. Eyes: Conjunctivae, EOM and lids are normal. Neck: Trachea normal. Neck supple. No thyroid mass present. Cardiovascular: Normal rate and regular rhythm. Pulmonary/Chest: Effort normal and breath sounds normal. Abdominal: Soft. Morbidly obese soft nontender; no hernias noted. Musculoskeletal: Normal range of motion. Lymphadenopathy: She has no cervical adenopathy. Neurological: She is alert and oriented to person, place, and time. Skin: Skin is warm, dry and intact. Psychiatric: She has a normal mood and affect. Her speech is normal and behavior is normal. Cognition and memory are normal. IMPRESSION 1. Rectal bleeding 2. Morbid obesity with BMI of 52 3. History of bipolar disorder 4. Melena rule out ulcer disease gastritis ASSESSMENT & PLAN Colonoscopy and EGD with possible biopsy or polypectomy. I discussed the risks, benefits, alternatives to the above which may include perforation or bleeding or risks of anesthesia. They understood all the above and wished to proceed. Evaluation included: Preparing to see the patient (e.g., review of tests) Obtaining and/or reviewing separately obtained history Performing a medically appropriate examination and/or evaluation Counseling and educating the patient/family/caregiver Referring and communicating with other health wound care rn Rectal bleeding [K62.5] Jessika Schultz DO This note was created with the assistance of a speech recognition program. While intending to generate a timely document that accurately reflects the content of the visit, no guarantee can be provided that every grammatical or spelling mistake has been or will be identified or corrected. Thank you for your understanding. documented in this encounter [facility] 08-06-2022 Note OPERATIVE NOTE OPERATION DATE: 08/06/2022 PROCEDURE: Katy endometrial ablation with hysteroscopy with removal of IUD. PREOPERATIVE DIAGNOSIS: Menorrhagia. POSTOPERATIVE DIAGNOSIS: Menorrhagia. ANESTHESIA: General. SURGEON: Ag Abraham, D.O. WELFARE ELIGIBILITY INTERVIEWER: None. FINDINGS: Normal appearing cavity. Both ostia seen. No gross evidence of polyps, fibroids or malignancy. SPECIMEN: None. BLOOD LOSS: 5 mL PROCEDURE: The patient was taken back to the OR where she was prepped and draped in the normal sterile fashion after being placed in the dorsal lithotomy position, after being placed under general anesthesia without difficulty. A weighted speculum was placed into the vagina. Please note that the strings of the IUD were identified and the IUD was easily removed with ringed forceps. The anterior lip was grasped with a single tooth tenaculum. The patient was then sounded to approximated 9 cm. The patient's cervix was gently dilated using Hegar dilators. The hysteroscope was passed through the cervix into the uterus where both ostia were seen. No gross evidence of polyps, fibroids or malignancy. The cervical length was noted to be 5 cm. The total cavity length is 4 cm. The Katy ablation apparatus was set to approximately 4 cm in length. This was placed through the cervix and into the uterus. After the seal was tested, at that time the total ablation of 120 seconds was performed with the Katy without difficulty. All instruments were removed from the vagina. Excellent hemostasis noted. Sponge and lap count correct times 2. Patient taken to recovery in stable condition. The [facility] Evaluation note No assessment inform ation available [facility] Work Phone: Evaluation note Diagnosis Vaginal pain Unspecified symptom associated with female genital organs UTI symptoms Pain of ovary [facility] Diagnosis Rectal bleeding- Primary Hemorrhage of rectum and anus Morbid obesity with BMI of 50.0-59.9, adult ([facility]) Bipolar 1 disorder ([facility]) Melena Blood in stool Hematemesis with nausea Diarrhea, unspecified type History of endometriosis Personal history of other genital system and obstetric disorders [facility] filed[facility] filed[facility] in [facility] Summary Purpose Family History No Family History Records FoundNo Family History Records FoundNo Family History Records FoundNo Family History Records FoundNo Family History Records FoundNo Family History Records FoundNo Family History Records FoundNo Family History Records FoundNo Family History Records FoundNo Family History Records Found Advance Directives Documents on File Type Date Recorded Patient Edi Developer Expl anation ACP-Advance Directive 03/18/2011 1:04 PM ACP-Advance Directive ACP-Power of Briquette Operator Documents on File Type Date Recorded Patient Edi Developer Expl anation ACP-Advance Directive 03/18/2011 1:04 PM ACP-Advance Directive ACP-Power of [employer]quette Operator Assessments Diagnosis Abdominal pain, epigastric Diagnosis Abdominal pain, epigastric Reason for Referral Status Reason Specialty Diagnoses / Procedures Referre d By Contact Referred To Contact Closed Radiology Diagnoses Abdominal pain, epigastric Procedures US GALLBLADDER RUQ Pangulur, Julian Lainez MD [address], [address] [address] Specialty Diagnoses / Procedures Referred By Contac t Referred To Contact Diagnoses Melena Hematemesis with nausea Procedures EGD Jessika Schultz, DO [address] [place] [id number] Referral ID Status Reason Start Date Expiration Date V isits Requested Visits Authorized [id number] Pending Review 06/01/2023 05/31/2024 1 1 Specialty Diagnoses / Procedures Referred By Contac t Referred To Contact Diagnoses Rectal bleeding Diarrhea, unspecified type Procedures Colonoscopy Jessika Schultz, DO [address] [place] [address] Referral ID Status Reason Start Date Expiration Date V isits Requested Visits Authorized [id number] Pending Review 06/01/2023 05/31/2024 1 1 Specialty Diagnoses / Procedures Referred By Contac [place] [address] [place] [id number] Referral ID Status Reason Start Date Expiration Date V isits Requested Visits Authorized [id number] Pending Review 1 1 Discharge Instructions * Instructions* Liz Hung RN - 01/09/2020 To see in the office in the next 2 to 3 weeks Sedation or General Anesthesia, Adult Care After Refer to this sheet in the next 24 hours. These instructions provide you with information on caringfor yourself after your procedure. Your caregiver may also give you more specific instructions. Your treatment has been planned according to current medical practices, but problems sometimes occur. Call your caregiver if you have any problems or questions after your procedure. HOME CARE INSTRUCTIONS Do not participate in any activities that require you to be alert or coordinated. Do not: Drive. Swim. Ride a bicycle. Operate heavy machinery. Cook. Use power tools. Climb ladders. Work at heights. Take a bath. Do not drink alcohol. Do not make any important decisions or sign legal documents. Stay with an adult. The first meal following your procedure should be light and small. Avoid solid foods if you feel sick to your stomach (nauseous) or if you throw up (vomit). Drink enough fluids to keep your urine clear or pale yellow. Only take your usual medicines or new medicines if your caregiver approves them. Only take [id number] or prescription medicines for pain, discomfort, or fever as directed by your caregiver. Keep all follow-up appointments as directed by your caregiver. SEEK IMMEDIATE MEDICAL CARE IF: You are not feeling normal or behaving normally after 24 hours. You have persistent nausea and vomiting. You are unable to drink fluids or eat food. You have difficulty urinating. You have difficulty breathing or speaking. You have blue or monson skin. There is difficulty waking or you cannot be woken up. You have heavy bleeding, redness, or a lot of swelling where the sedative or anesthesia entered your skin (intravenous site). You have a rash. MAKE SURE YOU: Understand these instructions. Will watch your condition. Will get help right away if you are not doing well or get worse. Document Released: 05/02/2006 Document Revised: 10/31/2012 Document Reviewed: 08/30/2012 [facility] Patient Information 2013 [employer]. EGD DISCHARGE INSTRUCTIONS Activity: Rest today. No driving, operating machinery, or making any important decisions today. May resume normal activity tomorrow. Diet: Following EGD eat slowly, chew food well, cut food into small pieces-Avoid greasy, spicy, crunchy foods X 48 hours. Call your Doctor if you have any of the following: -Passing blood rectally or vomiting blood (it may be red or black). -Persistent nausea/vomiting -Severe abdominal or chest pain not relieved with passing gas -Fever of 100 degrees or more -Redness or swelling at the IV site -Severe sore throat or neck pain documented in this encounter History of Present Illness * Rhoda Ochoa RN - 01/09/2020 9:07 AM EDT ucg negative this am documented in this encounter Chief Complaint and Reason for Visit Chief Complaint Toe Pain Additional Source Comments INFORMATION SOURCE (unrecogn ized section and content) DATE CREATED AUTHOR 07/05/2018 [facility] DATE CREATED AUTHOR AUTHOR'S ORGANIZ ATION 01/10/2020 [facility] DATE CREATED AUTHOR AUTHOR'S ORGANIZ ATION 01/11/2020 [facility] DATE CREATED AUTHOR AUTHOR'S ORGANIZ ATION 02/20/2021 [facility] DATE CREATED AUTHOR AUTHOR'S ORGANIZ ATION 08/18/2022 [facility] DATE CREATED AUTHOR AUTHOR'S ORGANIZ ATION 06/04/2023 [facility] DATE CREATED AUTHOR AUTHOR'S ORGANIZ ATION 10/08/2023 [facility] DATE CREATED AUTHOR AUTHOR'S ORGANIZ ATION 12/14/2023 [facility] DATE CREATED AUTHOR AUTHOR'S ORGANIZ ATION 12/19/2023 [facility] DATE CREATED AUTHOR AUTHOR'S ORGANIZ ATION 05/11/2024 [facility] Reason for Visit (unrecogniz ed section and content) Status Reason Specialty Diagnoses / Procedures Referre d By Contact Referred To Contact Closed Radiology Diagnoses Abdominal pain, epigastric Procedures US GALLBLADDER RUQ Julian Mcintosh MD [address], [address] [place] [address] Status Reason Specialty Diagnoses / Procedures Re ferred By Contact Referred To Contact Diagnoses Abdominal pain ABDOMINAL PAIN PAT ON ADMIT PER ANES Procedures AZ ESOPHAGOGASTRODUODENOSCOPY TRANSORAL DIAGNOSTIC EGD ESOPHAGOGASTRODUODENOSCOPY Julian Mcintosh MD [address], [address] [place] [address] [facility] Reason Comments Vaginal Pain Urinay incontinence Reason Comments GI Bleeding GI bleed, [facility] ER Care Teams (unrecognized sec tion and content) Team Status: Active Member Role Status Dates PCP No Primary Care Provider Active Team Status: Inactive Member Role Status Dates PCP No Primary Care Provider Active Start: December 12, 2023 End: December 12, 2023 SEBASTIAN Kincaid Attending Provider Active Sta rt: December 12, 2023 End: December 12, 2023 Team Status: Active Member Role Status Dates PCP No Primary Care Provider Active Start: December 12, 2023 SEBASTIAN Kincaid Attending Provider, Referring Provider Active Start: December 12, 2023 Chef Concierge Relationship Specialty Start Date End Date Carlee Read MD [address] [place] [address] PCP - General Family Medicine 12/06/22 Chef Concierge Relationship Specialty Start Date End Date Carlee Read MD [address] [place] [address] PCP - General Family Medicine 12/06/22 Chef Concierge Relationship Specialty Start Date End Date Carlee Read MD [address] [place] [address] PCP - General Family Medicine 12/06/22 Chef Concierge Relationship Specialty Start Date End Date [facility] [address] [place] PCP - General Family Medicine 06/23/22 Chef Concierge Relationship Specialty Start Date End Date [facility] [address] [place] PCP - General Family Medicine 06/23/22 Chef Concierge Relationship Specialty Start Date End Date [facility] [address] [place] PCP - General Family Medicine 06/23/22 Chef Concierge Relationship Specialty Start Date End Date [facility] [address] [place] PCP - General Family Medicine 06/23/22 Goals (unrecognized section and content) Goals may be documented in a n alternate sectionNot on filedocumented as of this encounterNot on filedocumented as of this encounterNot on filedocumented as of this encounterNot on filedocumented as of this encounter FOR RECORDS PERTAINING TO PATIENTS WHO ARE OR HAVE BEEN ENROLLED IN A CHEMICAL DEPENDENCY/SUBSTANCEABUSE PROGRAM, SOME INFORMATION MAY BE OMITTED. This clinical summary was aggregated from multiple sources. Caution should be exercised in using it in the provision of clinical care. This summary normalizes information from multiple sources, and as a consequence, information in this document may materially change the coding, format and clinical context of patient data. In addition, data may be omitted in some cases. CLINICAL DECISIONS SHOULD BE BASED ON THE PRIMARY CLINICAL RECORDS. [facility]. provides no warranty or guarantee of the accuracy or completeness of information in this document.
== END 2024-09-27 19:13 | disposition home or self-care (01) ==
PROVIDERS: Emergency Provider Emergency Medicine
DX: S92.352A Displaced fracture of fifth metatarsal bone, left foot, initial encounter for closed fracture (principal); X50.1XXA Overexertion from prolonged static or awkward postures, initial encounter; Z98.51 Tubal ligation status; F17.290 Nicotine dependence, other tobacco product, uncomplicated
CPT/HCPCS: 73630; 99283

== ENCOUNTER 2024-10-04 14:10 | Emergency (ER) | payer MEDICARE, SELFPAY ==
--- OUTSIDE RECORDS SUMMARY | 2024-05-09 19:14 | XMS_ITS ---
Author Organization [facility] Care Team Providers Care Crystalizer Name Role Phone Yoly Asencio Attending Unavailable Yoly Asencio Attending Unavailable Yoyl Asencio Referring Unavailable AMARO, MARCELA Primary Care Unavailable TREVOR BURNS Attending Unavailable AMARO, MARCELA Primary Care Unavailable MIKAEL DONIS Referring Unavailable AMARO, MARCELA Primary Care Unavailable JAI SHERIFF Attending Unavailable [facility] Primary Care Unava ilable JOHAN KWON Attending Unavailable Purpose PROBLEMS DATE TYPE CONDITION / CODE ATTENDING STATUS [facility] 05/09/2024 Unknown Cellulitis, unspecified / L03.90(ICD-10) JAI SHERIFF [facility] 05/09/2024 Unknown Bitten by cat, initial encounter / W55.01XA(ICD-10) JAI SHERIFF [facility] 05/09/2024 Unknown Animal Bite / FREETEXT(AOF) JAI SHERIFF [facility] 05/09/2024 Unknown Animal Bite / UNK(Unknown) JAI SHERIFF [facility] 12/11/2023 Working diagnosis Nondisplaced fracture of distal phalanx of right great toe, initial encounter for closed fracture / S92.424A(ICD-10) NA [facility] 10/06/2023 Unknown Chest pain, unspecified / R07.9(ICD-10) TREVOR BURNS [facility] 10/06/2023 Unknown Panic disorder (episodic paroxysmal anxiety) / F41.0(ICD-10) TREVOR BURNS [facility] 10/06/2023 Unknown Hypokalemia / E87.6(ICD-10) KAVEH BURNSHEN N [facility] PROCEDURES No Procedure Records Found VITAL SIGNS No Vital Signs Records Found RESULTS XR FOOT RIGHT (MIN 3 VIEWS) Observed: 8:57 PM Status: F Source: [facility] Order Comment: Reason for ex am:->slip, right great toe pain EXAMINATION: THREE XRAY VIEWS OF THE RIGHT FOOT 12/11/2023 8:30 pm COMPARISON: None. HISTORY: ORDERING SYSTEM PROVIDED HISTORY: slip, right great toe pain TECHNOLOGIST PROVIDED HISTORY: Reason for exam:->slip, right great toe pain FINDINGS: Three views of the right foot demonstrate a nondisplaced vertical fracture through the base of the distal phalanx of the right great toe extending into the joint space. There is accompanied soft tissue swelling. There remainder of the soft tissues and osseous structures appear unremarkable. IMPRESSION: Nondisplaced vertical fracture through the base of the distal phalanx of the right great toe extending into the joint space. Interpreted by: Flex García III, DO Signed by: Flex García III, DO 12/11/23 Final result XR CHEST PORTABLE Observed: 10/06/2023 1:28 PM Status: F Source: [facility] EXAMINATION: ONE XRAY VIEW OF THE CHEST 10/06/2023 1:16 pm COMPARISON: None. HISTORY: ORDERING SYSTEM PROVIDED HISTORY: cp TECHNOLOGIST PROVIDED HISTORY: cp FINDINGS: The lungs are without acute focal process. There is no effusion or pneumothorax. The cardiomediastinal silhouette is without acute process. The osseous structures are without acute process. IMPRESSION: No acute process. Interpreted by: Kvng Chamberlain MD Signed by: Kvng Chamberlain MD 10/06/23 Final result CBC WITH DIFF Collected: 10/06/2023 1:20 PM Status: F Source: [facility] TYPE CODE TESTS RESULT OUT OF RANGE REFERENCE UNITS LAB WBC(LOINC) WBC Count 9.3 3.5-11.3 k/uL LAB RBC(LOINC) RBC Count 4.79 3.95-5.11 m/uL LAB HGB(LOINC) Hemoglobin 14.7 11.9-15.1 g/dL LAB HCT(LOINC) Hematocrit 42.5 36.3-47.1 % LAB MCV(LOINC) MCV 88.7 82.6-102.9 fL LAB MCH(LOINC) MCH 30.7 25.2-33.5 pg LAB MCHC(LOINC) MCHC 34.6 28.4-34.8 g/dL LAB RDW(LOINC) RDW 11.9 11.8-14.4 % LAB PLT(LOINC) Platelet Count 243 138-453 k/uL LAB MPVX(LOINC) MPV 12.1 8.1-13.5 fL LAB NRBCS(LOINC) NRBC Automated 0.0 0.0 per 100 WBC LAB SEG(LOINC) Neutrophil (Seg) 48 36-65 % LAB LYM(LOINC) Lymphocyte 39 24-43 % LAB MON(LOINC) Monocyte 10 3-12 % LAB EO(LOINC) Eosinophil 2 1-4 % LAB BASO(LOINC) Basophil 1 0-2 % LAB IGRAN(LOINC) Immature Granulocyte 0 0 % LAB ASEG(LOINC) Abs.Neutrophil (Seg) 4.53 1.50-8.10 k/uL LAB ALYM(LOINC) Abs. Lymph 3.59 1.10-3.70 k/uL LAB AMONO(LOINC) Abs. Monocyte 0.89 0.10-1.20 k/u L LAB AEO(LOINC) Abs. Eosinophil 0.15 0.00-0.44 k/u L LAB ABASO(LOINC) Abs. Basophil 0.08 0.00-0.20 k/u L LAB AIGRAN(LOINC) Abs.Imm.Granulo cyte <0.03 0.00-0.30 k/uL Performed By: #### CDP, BMP, MG, TROPI #### [facility] [address] [place] [address] Security Tech: Torito Ashley MD BASIC METABOLIC PROF Collected: 024 1:20 PM Status: F Source: [facility] TYPE CODE TESTS RESULT OUT OF RANGE REFERENCE UNITS LAB NA(LOINC) NA (Sodium) 140 135-144 mmol/L LAB K(LOINC) K (Potassium) 3.6 Low 3.7-5.3 mmol/L LAB CL(LOINC) Chloride 105 98-107 mmol/L LAB HCO(LOINC) CO2 22 20-31 mmol/L LAB GAP(LOINC) Anion Gap 13 9-17 mmol/L LAB GLU(LOINC) Glucose 84 70-99 mg/dL LAB BUN(LOINC) BUN (Urea N) 8 6-20 mg/dL LAB CRE(LOINC) Creatinine 0.6 0.5-0.9 mg/dL LAB EGFR(LOINC) eGFR >90 >60 mL/min/1. 73m2 Result Comment: These results are not intended for use in patients <18 years of age. eGFR results are calculated without a race factor using the 2020 CKD-EPI equation. Careful clinical correlation is recommended, particularly when comparing to results calculated using previous equations. The CKD-EPI equation is less accurate in patients with extremes of muscle mass, extra-renal metabolism of creatine, excessive creatine ingestion, or following therapy that affects renal tubular secretion. LAB BUNCRE(LOINC) BUN/CRE Ratio 13 9-20 LAB CA(LOINC) Calcium 9.3 8.6-10.4 mg/dL Performed By: #### CDP, BMP, MG, TROPI #### [address] [place] [address] Security Tech: Torito Ashley MD MAGNESIUM Collected: 1:20 PM Status: F Source: [facility] TYPE CODE TESTS RESULT OUT OF RANGE REFERENCE UNITS LAB MG(LOINC) Magnesium 2.0 1.6-2.6 mg/dL Performed By: #### CDP, BMP, MG, TROPI #### [address] [place] [address] Security Tech: Torito Ashley MD TROPONIN Collected: 10/06/2023 1:20 PM Status: F Source: [facility] TYPE CODE TESTS RESULT OUT OF RANGE REFERENCE UNITS LAB HSTROP(LOINC) Troponin, High Sens 6 0-14 ng/L Result Comment: High Sensiti vity Troponin values cannot be compared with other Troponin methodologies. Performed By: #### CDP, BMP, MG, TROPI #### [facility] [address] [place] [address] Security Tech: Torito Ashley MD ALLERGIES DATE TYPE / CODE NAME / CODE REACTION SEVERITY SOURCE 06/01/2023 Drug Class~Environ~N ON-CBORD/381334 003(SNOMED CT) ADHESIVE Other ( See Comments) [facility] 10/07/2022 DRUG INGREDI~Environ ~NON-CBORD/4195 80762(SNOMED CT) LATEX Hives [facility] 06/24/2018 DRUG INGREDI~NON-CBO RD/[id number](SN OMED CT) LAMOTRIGINE [facility] 03/17/2011 DRUG INGREDI~NON-CBO RD/[id number](SN OMED CT) AMOXICILLIN [facility] 03/17/2011 Drug Class~NON-CBORD /[id number](SNOM ED CT) PENICILLINS [facility] ENCOUNTERS ADMIT/DISCHARGE ACCOUNT NUMBER ADMITTING ENCOUNTER CLASS LOCATION SOURCE 05/09/2024/05/09/20 [id number] Emergency Building:PF_ EDRoom: 10Bed: 10 [facility] 01/12/2024/01/12/20 24 [id number] Ambulatory Building:[facility] 12/12/2023 [id number] Ambulatory [facility] lding:SHSW.[id number] 9 [facility] 12/12/2023 [id number] Ambulatory [facility] Physician ServicesBuild ing:SPS.000 [facility] 12/11/2023 [id number] [facility] 12/11/2023/12/11/19 24 [id number] Emergency Building:[facility]ED Room: 07Bed: 07 [facility] 10/06/2023/10/06/19 24 [id number] Emergency Building:TEDR oom: 11Bed: 11 [facility] FUNCTIONAL STATUS No Functional Status Records Found EQUIPMENT No Equipment Records Found PAYERS ENCOUNTER GUARANTOR PAYER SUBSCRIBER SOURCE 05/09/2024 JAYE BURTONB: [address] [place], [place] [address]Izm: (HP) Primary Insurance:[employer] (HMO)Policy Number: [id number] Date:2023-05-16 JAYE BURTONB: [id number] [place], [place] [address]Agj: (HP) [facility] 01/12/2024 JAYE BURTONB: [place] [address]Syg: (HP) Primary Insurance:[employer] [facility]: [id number] Date:2023-02-13 JAYE BURTONB: [id number] [place] [address] [facility] 12/11/2023 JAYE BURTONB: [address] [place], [place] [address]Kgm: (HP) (WP) Primary Insurance:[employer]ET[employer] MEDICAREPolicy Number: [id number] Date:2023-05-16 JAYE BURTONB: [id number] [place], [place] [address]Lpu: (HP) [facility] 12/11/2023 JAYE BURTONB: [address] [place], [place] [address]Rga: (HP) (WP) Primary Insurance:[employer]ET[employer] MEDICAREPolicy Number: [id number] Date:2023-05-16 JAYE BURTONB: [id number] [place], [place] [address]Yqv: (HP) [facility] 10/06/2023 JAYE LÓPEZ: [address] [place], [place] [address]Yqe: (HP) (WP) Primary Insurance:[employer]ET[employer] MEDICAREPolicy Number: [id number] Date:2023-05-16 JAYE LÓPEZ: [id number] [place], [place] [address]Hcu: () [facility] SOCIAL HISTORY No Social History Records Found FAMILY HISTORY No Family History Records Found ADVANCE DIRECTIVES No Advanced Directives Records Found INFORMATION SOURCE DATE CREATED AUTHOR AUTHOR'S DIAMANTE MUÑIZ 10/04/2024 MIKA
--- OUTSIDE RECORDS SUMMARY | 2024-08-20 13:30 | XMS_ITS ---
Author Organization [facility] vices Address [address] [place], [place] [id number] Care Team Providers Care Script Reader Name Role Phone Cade Jil Primary Care Provider [phone] REASON FOR VISIT Lactose Intolerance Concerns Social History Sex Assigned At : Social History Observation Description Sex Assigned At Female Encounters Encounter Location Date Provider Diagnosis [address] [address] 08/20/2024 Jil Mohamud Plan Of Treatment Next Appt Details Provider Name:Jil Vegaood, 11/05/2024 04:30:00 PM, [address] [place] [address], [id number], Progress Notes * Amparo DOSSDOB: [birth year] (34 yo F)Acc No.[id number]:08/20/2024 Medical Note Patient: Amparo LEGGETT Provider: Whitney Mohamud MD :1990 A ge:34 Y S ex:Female Date:08/20/2024 Address:[facility] [address] [facility] Subjective: * Chief Complaints: * 1 . Lactose Intolerance Concerns. * Medical History: Objective: * Vitals: Assessment: Plan: * Treatment: * Billing Information: * Visit Code: * Procedure Codes: * Electronic signature of Jerson Mohamud MD on 10/04/2024 at 02:15 PM EDT Sign off status: Pending * Provider: Whitney Mohamud MD Date: 0 08/20/2024 Generated for Analy acosta/Shant/Oleksandr on: 0 10/04/2024 02:15 PM EDT
--- OUTSIDE RECORDS SUMMARY | 2024-10-02 06:30 | XMS_ITS ---
Author Organization [facility] vices Address [address] [place], [place] [address] Care Team Providers Care Cullet Washer Name Role Phone Cade Jil Primary Care Provider [phone] Allergies Allergen (clinical drug ingredient) Drug/Non Drug Allergy documented on EMR Reaction Allergy Type Onset Date Status penicillin V Penicillin V Potassium Rash Drug Allergy 0 12/13/2019 Active Results Component Value Reference Range Notes HTRX - Treatable Respiratory Viruses Reviewed date:10/03/2024 10:39:16 AM Interpretation: Performing Lab: Notes/Report: REASON FOR VISIT ER [place] 09/27 f/u - Fall left foot Medications Medication SIG (Take, Route, Frequency, Duration) Notes Start Date End Date Status FLUoxetine HCl 40 MG 1 capsule Orally Once a day once daily Active Valium 10 MG 0.5 tablet three times a day as needed Orally Active Omeprazole 20 MG TAKE 1 CAPSULE BY MOUTH EVERY DAY 30 MINUTES BEFORE MORNING MEAL FOR 30 DAYS for 90 as needed Active Benzonatate 200 MG 1 capsule as needed Orally Three times a day for 10 days 10/02/2024 Active Albuterol Sulfate HFA 108 (90 Base) MCG/ACT 1 puff as needed Inhalation 4 times a day for 30 days Active HYDROcodone-Acetaminop hen 5-325 MG Oral for 2 Days as needed from ER Active Lybalvi 5-10 MG take 1 tablet by mouth every evening Oral for 7 Days Active Social History Sex Assigned At : Social History Observation Description Sex Assigned At Female Vital Signs Temperature 97.1 degrees Fahrenheit 10/03/19 25 Weight 252.2 lbs 10/02/2024 Height 62.00 in 10/02/2024 BMI 46.12 kg/m2 10/02/2024 Blood pressure systolic 99 mm Hg 10/03/19 Blood pressure diastolic 61 mm Hg 025 Heart Rate 66 /min 10/02/2024 Respiratory Rate 18 /min 10/02/2024 Oximetry 97 % 10/02/2024 Weight-kg 114.4 kg 10/02/2024 Height-cm 157.48 cm 10/02/2024 Angela Garcia 10/02/2024 10 :35:03 AM EDT > Encounters Encounter Location Date Provider Diagnosis [place] [address] [place] [address] 10/02/2024 Jil Mohamud Upper respiratory d isease J39.9 and Closed fracture of left foot, initial encounter S92.902A Assessments Encounter Date Diagnosis (ICD Code) Assessment Notes Treatment Notes Treatment Clinical Notes Section Notes 10/02/2024 Upper respiratory disease (ICD-10 - J39.9) URI symptoms, likely Viral. With the increasing number of covid case in community, it is amongst the differentials as well and I recommend getting tested for covid matthew. No concerns for bacterial infection at this point. We will continue conservative management at this point. Patient was encouraged to increase fluid intake, warm salt water gargles, cool moist mist. Patient advised to take rest as much as possible. Advised patient to continue taking Tylenol and ibuprofen as needed for pain. Patient was advised to call the office or head to emergency room, if symptoms worsen and PVU 10/02/2024 Closed fracture of left foot, initial encounter (ICD-10 - S92.902A) Pt is following with trial judge tomorrow for further w/up and treatment of the fracture of 5th metatarsal of the left foot. Plan Of Treatment Medication Medication Name Sig Start Date Stop Date Notes Benzonatate 200 MG 1 capsule as needed Orally Three times a day for 10 days 10/02/2024 Albuterol Sulfate HFA 108 (9 0 Base) MCG/ACT 1 puff as needed Inhalation 4 times a day for 30 days Treatment Notes Assessment Notes Upper respiratory disease URI symptoms, likely Viral. With the increasing number of covid case in community, it is amongst the differentials as well and I recommend getting tested for covid matthew. No concerns for bacterial infection at this point. We will continue conservative management at this point. Patient was encouraged to increase fluid intake, warm salt water gargles, cool moist mist. Patient advised to take rest as much as possible. Advised patient to continue taking Tylenol and ibuprofen as needed for pain. Patient was advised to call the office or head to emergency room, if symptoms worsen and PVU Closed fracture of left foot , initial encounter Pt is following with trial judge tomorrow for further w/up and treatment of the fracture of 5th metatarsal of the left foot. Next Appt Details Follow Up: 4 Weeks, Reason: wellness Provider Name:Jil Mohamud, 11/05/2024 04:30:00 PM, [address] [place], [address], Progress Notes * Amparo DOSSDOB: [birth year] (34 yo F)Acc No.[id number]:10/02/2024 Medical Note Patient: Amparo LEGGETT Provider: Whitney Mohamud MD :1990 A ge:34 Y S ex:Female Date:10/02/2024 Address:[address] [place], [place] [id number] Check In:10:29 AM EST Subjective: * Chief Complaints: * E R [place] 09/27 f/u - Fall left foot * HPI: I nterim History: Pt had a fall in the grass on and injured the left foot. Xray at [facility] showed possible fracture of the 5th metatarsal She is going to see trial judge tomorrow. She is taking ibuprofen and norco as ordered. She had been feeling sick since tuesday. She has sinus congestion , sorethroat, nausea, vomiting. * ROS: N egative except mentioned above in the HPI. * Medical History: * Surgical History: T ubal Ligation, EGD, COMMENTS: 12/2019 Salpingectomy; Bilateral, COMMENTS: done by Dr Nelson, pt's legislative advocate, P Date: 01/02/2018Hysterectomy 01/05/2023 * Hospitalization/Major Diagno stic Procedure: D enies Past Hospitalization * Family History: F ather: alive, diagnosed with Mental Illness. M other: alive, breast cancer, diagnosed with Cancer, Diabetes. P aternal Grand Father: . P aternal Grand Mother: . Maternal Grand Father: alive, skin cancer, diagnosed with Cancer. M aternal Grand Mother: alive, memory issues, diagnosed with Diabetes. B rother: alive. 1 brother(s) . . * Medications: T akingValium 10 MG Tablet 0.5 tablet three times a day as needed Orally FLUoxetine HCl 40 MG Capsule 1 capsule Orally Once a day , Notes to Pharmacist: once dailyOmeprazole 20 MG Capsule Delayed Release TAKE 1 CAPSULE BY MOUTH EVERY DAY 30 MINUTES BEFORE MORNING MEAL FOR 30 DAYS , Notes to Pharmacist: as neededLybalvi 5-10 MG Tablet take 1 tablet by mouth every evening Oral Albuterol Sulfate HFA 108 (90 Base) MCG/ACT Aerosol Solution Inhalation , Notes to Pharmacist: as neededHYDROcodone- Acetaminophen 5-325 MG Tablet Oral , Notes to Pharmacist: as needed from ERTaking Valium 10 MG Tablet 0.5 tablet three times a day as needed Orally Taking FLUoxetine HCl 40 MG Capsule 1 capsule Orally Once a day , Notes to Pharmacist: once dailyTaking Omeprazole 20 MG Capsule Delayed Release TAKE 1 CAPSULE BY MOUTH EVERY DAY 30 MINUTES BEFORE MORNING MEAL FOR 30 DAYS , Notes to Pharmacist: as neededTaking Lybalvi 5-10 MG Tablet take 1 tablet by mouth every evening Oral Taking Albuterol Sulfate HFA 108 (90 Base) MCG/ACT Aerosol Solution Inhalation , Notes to Pharmacist: as neededTaking HYDROcodone-Acetaminophen 5-325 MG Tablet Oral , Notes to Pharmacist: as needed from ERDiscontinuedtraZODone HCl 50 MG Tablet TAKE 1/2 TAB Oral Once a day Nicotine Step 1 21 MG/24HR Patch 24 Hour 1 patch to skin Transdermal Once a day Medication List reviewed and reconciled with the patientDiscontinued traZODone HCl 50 MG Tablet TAKE 1/2 TAB Oral Once a day Discontinued Nicotine Step 1 21 MG/24HR Patch 24 Hour 1 patch to skin Transdermal Once a day Medication List reviewed and reconciled with the patient * Allergies: P enicillin V Potassium: Rash - Allergy - Onset Date 12/13/2019no[Allergies Verified] Objective: * Vitals: T emp:97.1F, Wt:252.2lbs, Ht: 62.00 in, BMI:46.12Index, BP:99/61mm Hg, HR:66/min, RR:18/min, Pain scale:81-10, Oxygen sat %:97%, Wt-k.4 kg, Ht-cm: 157.48 cm, Body Surface Area: 2.23. Angela Garcia 10/02/2024 10:35:03 AM EDT >. * Examination: C QM Exceptions: Currently taking Aspirin: A spirin Use: N o * Physical Examination: G eneral appearance: alert, pleasant, well-nourished and in no acute distress. Head: normocephalic, atraumatic. Eyes: pupils equal, round, reactive to light. Heart: regular rate and rhythm without murmurs, gallops, clicks or rubs. Lungs: clear to auscultation bilaterally, with good air movement and no rales, rhonchi or wheezes. Psych: alert and oriented x 3, cooperative with exam, maintains good eye contact. Skin: No rashes. Extremities: left foot in cam boot. Assessment: * Assessment: 1. U pper respiratory disease - J39.9 (Primary) 2 . C losed fracture of left foot, initial encounter - S92.902A Plan: * Treatment: 2. C losed fracture of left foot, initial encounter Notes: Pt is following with trial judge tomorrow for further w/up and treatment of the fracture of 5th metatarsal of the left foot. * Procedure Codes: 3 078F HTN DIAST BP < 768454T HTN SYST BP < 130 * Follow Up: 4 Weeks (Reason: wellness) * Billing Information: * Visit Code: 43572 Office Visit Est 20-29 minutes. * Procedure Codes: 3078F HTN DIAST BP < 80. 3074F HTN SYST BP < 130. * Sign off status: Completed true * Provider: Whitney Mohamud MD Date: 10/02/2024 Generated for Analy acosta/Shant/Cyndyitting on: 10/04/2024 02:15 PM EDT History and Physical Notes * HPI (History of Present Illness) Category Sub-Category Detail Notes Category Not es Interim History Pt had a fall in the grass on and injured the left foot. Xray at [facility] showed possible fracture of the 5th metatarsal She is going to see trial judge tomorrow. She is taking ibuprofen and norco as ordered. She had been feeling sick since tuesday. She has sinus congestion , sorethroat, nausea, vomiting. Physical Examination Category Sub-Category Detail Notes Section Note s General appearance: alert, pleasant, well-nourished and in no acute distress. Head: normocephalic, atraumatic. Eyes: pupils equal, round, reactive to light. Heart: regular rate and rhythm without murmurs, gallops, clicks or rubs. Lungs: clear to auscultation bilaterally, with good air movement and no rales, rhonchi or wheezes. Psych: alert and oriented x 3, cooperative with exam, maintains good eye contact. Skin: No rashes. Extremities: left foot in cam boot Examination Category Sub-Category Detail Notes Category Not es CQM Exceptions Currently taking Aspirin: Aspirin Use:: No
--- OUTSIDE RECORDS SUMMARY | 2024-10-02 06:30 | XMS_ITS ---
Author Organization [facility] vices Address [address] [place], [place] [id number] Care Team Providers Care Boiler Tube Blower Name Role Phone Cade Jil Primary Care Provider [phone] Allergies Allergen (clinical drug ingredient) Drug/Non Drug Allergy documented on EMR Reaction Allergy Type Onset Date Status penicillin V Penicillin V Potassium Rash Drug Allergy 0 12/13/2019 Active REASON FOR VISIT ER f/u [facility] 09/27/24 broke left foot Medications Medication SIG (Take, Route, Frequency, Duration) Notes Start Date End Date Status Omeprazole 20 MG TAKE 1 CAPSULE BY MO UTH EVERY DAY 30 MINUTES BEFORE MORNING MEAL FOR 30 DAYS for 90 as needed Active Lybalvi 5-10 MG take 1 tablet by litzy th every evening Oral for 7 Days Active traZODone HCl 50 MG TAKE 1/2 TAB Oral On ce a day for 30 days Active Nicotine Step 1 21 MG/24HR 1 patch to skin Transdermal Once a day for 30 days 08/06/2024 Active Albuterol Sulfate HFA 108 (90 Base) MCG/ACT Inhalation for 75 Days Active Valium 10 MG 0.5 tablet three kevin es a day as needed Orally Active FLUoxetine HCl 40 MG 1 capsule Orally On ce a day once daily Active Social History Sex Assigned At : Social History Observation Description Sex Assigned At Female Encounters Encounter Location Date Provider Diagnosis [facility] [address] [place] [phone] 10/02/2024 Jil Mohamud Plan Of Treatment Next Appt Details Provider Name:Jil Mohamud, 11/05/2024 04:30:00 PM, [address] [place] [address], [phone], Progress Notes * Amparo DOSSDOB: [birth year] (34 yo F)Acc No.[id number]:10/02/2024 Medical Note Patient: Amparo LEGGETT Provider: Whitney Mohamud MD :1990 A ge:34 Y S ex:Female Date:10/02/2024 Address:[address] [place] [address], [id number] Subjective: * Chief Complaints: * 1 . ER f/u [facility] 09/27/24 broke left foot. * Medical History: A nxiety and depression, COMMENTS: PMHNP managing, Back pain,, Bipolar disorder with psychotic features, COMMENTS: PMHNP managing, Borderline personality disorder, COMMENTS: PMHMP managing., Constipation, acute, DISK buldge L14, Drug abuse in remission, COMMENTS: Declined referral to [facility]., Lightheadedness,, Medication refill,, PTSD (post-traumatic stress disorder), Swelling of calf, COMMENTS: Bilaterally, Tobacco dependence. * Surgical History: T ubal Ligation, , EGD, COMMENTS: 12/2019 , Salpingectomy; Bilateral, COMMENTS: done by Dr Nelson, pt's ob/gyn nurse, P Date: 01/02/2018, Hysterectomy 01/05/2023. * Hospitalization/Major Diagno stic Procedure: D enies Past Hospitalization. * Family History: F ather: alive, diagnosed with Mental Illness. M other: alive, breast cancer, diagnosed with Cancer, Diabetes. P aternal Grand Father: . P aternal Grand Mother: . Maternal Grand Father: alive, skin cancer, diagnosed with Cancer. M aternal Grand Mother: alive, memory issues, diagnosed with Diabetes. B rother: alive. 1 brother(s) . . * Medications: T aking Valium 10 MG Tablet 0.5 tablet three times a day as needed Orally , Taking FLUoxetine HCl 40 MG Capsule 1 capsule Orally Once a day , Notes to Pharmacist: once daily, Taking Omeprazole 20 MG Capsule Delayed Release TAKE 1 CAPSULE BY MOUTH EVERY DAY 30 MINUTES BEFORE MORNING MEAL FOR 30 DAYS , Notes to Pharmacist: as needed, Taking traZODone HCl 50 MG Tablet TAKE 1/2 TAB Oral Once a day , Taking Lybalvi 5-10 MG Tablet take 1 tablet by mouth every evening Oral , Taking Albuterol Sulfate HFA 108 (90 Base) MCG/ACT Aerosol Solution Inhalation , Taking Nicotine Step 1 21 MG/24HR Patch 24 Hour 1 patch to skin Transdermal Once a day * Allergies: P enicillin V Potassium: Rash - Allergy - Onset Date 12/13/2019. Objective: * Vitals: * Examination: C QM Exceptions: Currently taking Aspirin: A spirin Use: N o Assessment: Plan: * Treatment: * Billing Information: * Visit Code: * Procedure Codes: * Electronic signature of Jerson Mohamud MD on 10/04/2024 at 02:15 PM EDT Sign off status: Pending * Provider: Whitney Mohamud MD Date: 10/02/2024 Generated for Analy acosta/Shant/Oleksandr on: 10/04/2024 02:15 PM EDT History and Physical Notes * Examination Category Sub-Category Detail Notes Category Not es CQM Exceptions Currently taking Aspirin: Aspirin Use:: No
[2024-10-04 14:14] VITALS: BP 146/80; PULSE 67; TEMP 36.8; O2SAT 95; BMI 45.7
--- OUTSIDE RECORDS SUMMARY | 2024-10-04 14:15 | XMS_ITS | Clinical Summary ---
Author Organization [facility] Address [address] [place] [address] Care Team Providers Care Floor Manager Name Role Phone Unavailable Primary Care Provider Unavailabl e Social History Tobacco Use Types Packs/Day Years Used Date Smoking Tobacco: Never Assessed [place] Safety & Environment Answer Date Rec orded Fear of Current or Ex-Partner Not on file Emotionally Abused Not on file 07/07/2023 Physically Abused Not on file 07/07/2023 Sexually Abused Not on file 07/07/2023 Physically or Sexually Abused Not on file Sex and Gender Information Value Date Recorded Sex Assigned at Not on file Gender Identity Not on file Sexual Orientation Not on file Last Filed Vital Signs Vital Sign Reading Time Taken Comments Blood Pressure - - Pulse - - Temperature - - Respiratory Rate - - Oxygen Saturation - - Inhaled Oxygen Concentration - - Weight 113 kg (250 lb) 01/12/2021 1:31 PM EDT Height 157.5 cm (5' 2 ) 01/12/2021 1:31 PM EDT Body Mass Index 45.73 01/12/2021 1:31 PM EDT Plan of Treatment Not on file
--- OUTSIDE RECORDS SUMMARY | 2024-10-04 14:15 | XMS_ITS | Encounter Summary ---
Author Organization [facility] Address [address] [facility] [place] [address] Care Team Providers Care Industrial Gas Servicer Helper Name Role Phone Carlee Read MD Primary Care Provider [phone] Encounter Details Date Type Department Care Team ([facility] Contact Info) Description 10/05/2022 Abstract [facility] OB [address] [place] [address] Ag Rosario, DO [address] [place], [place] [id number] Social History Tobacco Use Types Packs/Day Years Used Date Smoking Tobacco: Every Day Cigarettes Tobacco Cessation:Ready to Q uit: Not Asked; Counseling Given: Not Answered Comments:6-10 cigs a day. Alcohol Use Standard Drinks/Week Comments Never 0 (1 standard drink = 0.6 oz pure alcohol) Caffeine intake: 2-3 cups per day of coffee Education Answer Date Recorded What is the highest level of school you have completed or the highest degree you have received? 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
--- OUTSIDE RECORDS SUMMARY | 2024-10-04 14:15 | XMS_ITS | Encounter Summary ---
Author Organization [facility] Address [address] [facility] [place] [address] Care Team Providers Care Hvac Engineering Technician Name Role Phone Carlee Read MD Primary Care Provider [phone] Encounter Details Date Type Department Care Team ([facility] Contact Info) Description 01/11/2023 Abstract [facility] OB [address] [place] [id number] Yamini Martines PA [address] [place], [facility] Social History Tobacco Use Types Packs/Day Years Used Date Smoking Tobacco: Every Day Cigarettes Comments:6-10 cigs a day. 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
--- OUTSIDE RECORDS SUMMARY | 2024-10-04 14:15 | XMS_ITS | Referral Summary ---
Author Organization [facility] Address [address] [place] [address] Care Team Providers Care Apparel Machinery Instructor Name Role Phone Unavailable Primary Care Provider Unavailabl e Social History Tobacco Use Types Packs/Day Years Used Date Smoking Tobacco: Never Assessed [place] Safety & Environment Answer Date Rec orded [...]
--- OUTSIDE RECORDS SUMMARY | 2024-10-04 14:15 | XMS_ITS | Encounter Summary ---
Author Organization [facility] Address [address] [facility] [place] [address] Care Team Providers Care Aerial Applicator Pilot Name Role Phone Carlee Read MD Primary Care Provider [phone] Encounter Details Date Type Department Care Team ([facility] Contact Info) Description 01/11/2023 Abstract [facility] [email or web address] [place] [address] Ivanna Solorzano LPN [address] [place] [address] Social History Tobacco Use Types Packs/Day Years [...] 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
--- OUTSIDE RECORDS SUMMARY | 2024-10-04 14:16 | XMS_ITS | Clinical Summary ---
Author Organization [facility] Address [address] [place] [address] Care Team Providers Care Public Health Program Manager Name Role Phone Carlee Read MD Primary Care Provider [phone] Allergies Active Allergy Reactions Criticality Noted Date Comments Lamotrigine Unknown,Other 06/24/2018 Johnson Latex Hives 10/07/2022 Penicillins Rash,Other Low 03/17/2011 Other Reaction(s): Hives/ rash Rash over entire body Medications busPIRone (Buspar) 30 MG tablet Take 30 mg by mouth in the morning and 30 mg before bedtime. Active albuterol (ProAir RespiClick) 90 mcg/act breath-activate d inhaler INHALE 2 PUFFS INTO THE LUNGS EVERY 4 6 HOURS NEEDED FOR SHORTNESS OF BREATH Active Family History Medical History Relation Name Comments ADD / ADHD Daughter Cancer Father Diabetes Father Hyperlipidemia Father Hypertension Father Mental illness Father Stroke Father Alcohol abuse Maternal Grandfather Allergies Maternal Grandfather seasona l Kidney cancer Maternal Grandfather Diabetes Maternal Grandmother Hypertension Maternal Grandmother Skin cancer Maternal Grandmother Depression Mother Diabetes Mother Alcohol abuse Mother's Brother Other Other substance abuse & agression No Known Problems Son Relation Name Status Comments Daughter Alive Father Alive Maternal Grandfather Maternal Grandmother Mother Alive Mother's Brother Alive Other Biological fath er Son Alive Social History Tobacco Use Types Packs/Day Years [...] have received? 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 Not on file Not on file Last Filed Vital Signs Vital Sign Reading Time Taken Comments Blood Pressure 120/70 01/12/2024 10:04 AM EDT Pulse - - Temperature - - Respiratory Rate - - Oxygen Saturation - - Inhaled Oxygen Concentration - - Weight 121 kg (267 lb 6.4 oz) 01/12/2024 10:04 A M EDT Height 157.5 cm (5' 2 ) 02/15/2023 9:37 AM EDT Body Mass Index 48.91 02/15/2023 9:37 AM EDT Plan of Treatment Not on file Insurance MEDICARE [employer] MEDICARE ADVANTAGE Care Teams Public Health Program Manager Relationship Specialty Start Date End Date Carlee Read MD [address] [place], [place] [id number] PCP - General Family Medicine 12/06/22
--- NOTE | 2024-10-04 14:27 | XR_ITS ---
The [address] [address] Patient Name: JAYE DOSS MRN: [id number] date: 1990 Sex: F Assigned Patient Location: ER Current Patient Location: ER Accession/Order Number: [id number] Exam Date: 10/04/2024 15:41 Report Date: 10/04/2024 15:41 At the request of: NYDIA VALERA Procedure: XR chest 2V XR chest 2V 10/04/2024 3:19 PM SIGNS AND SYMPTOMS: ^cough , fever PROTOCOL: Frontal and lateral graphs of the chest COMPARISON: None FINDINGS: The trachea is midline. The heart and mediastinal structures are within normal limits. The lung parenchyma is clear. The bony thorax is intact. There is a dextro convex curvature of the thoracic spine. Degenerative changes are present in the thoracic spine. XR/XR chest 2V IMPRESSION: No acute cardiopulmonary pathology. Impression dictated by: Reji Garner M.D. 10/04/2024 3:41 PM Dictation Location: [place] [address] Electronically authenticated by: [id number] Y Date: 10/04/2024 15:41
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
[2024-10-04] MEDS: 0.9 % SODIUM CHLORIDE 1,000 ML 999 ML IV (14:38)
[2024-10-04] MEDS: METHYLPREDNISOLONE SOD SUCC PF 125 MG/2 ML VIAL IVP (14:39)
[2024-10-04] MEDS: ALBUTEROL SULFATE 2.5 MG/3 ML VIAL NEB IH (14:42)
[2024-10-04 14:44] VITALS: O2SAT 99
[2024-10-04 14:44] LABS: Basophils Absolute Auto 0.1 10^3/uL (0.0-0.1); Basophils Percent Auto 0.6 % (0.2-2.0); Eosinophils Absolute Auto 0.4 10^3/uL (0.0-0.7); Eosinophils Percent Auto 3.6 % (0.9-7.0); Hemoglobin 13.8 g/dL (12.0-16.0); Immature Granulocytes Abs Auto 0.04 10^3/uL (0.00-0.03); Immature Granulocytes Pct Auto 0.4 % (0.0-0.5); Lymphocytes Absolute Auto 3.7 10^3/uL (1.2-3.8); Lymphocytes Percent Auto 33.1 % (20.5-60.0); Mean Corpuscular HGB Conc 35.4 g/dL (29.9-35.2); Mean Corpuscular Hemoglobin 31.7 pg (26.7-34.0); Mean Corpuscular Volume 89.7 fL (81.0-99.0); Mean Platelet Volume 11.5 fL (9.5-13.5); Monocytes Absolute Auto 0.8 10^3/uL (0.3-0.8); Monocytes Percent Auto 7.2 % (1.7-12.0); Neutrophils Absolute Auto 6.2 10^3/uL (1.4-6.5); Neutrophils Percent Auto 55.1 % (43.0-75.0); Platelet Count 268 10^3/uL (150-450); Red Blood Count 4.35 10^6/uL (4.20-5.40); Red Cell Distribution Width 11.9 % (11.0-15.0); White Blood Count 11.3 10^3/uL (4.0-11.0)
[2024-10-04 14:54] LABS: Anion Gap 16.2; Calcium 8.8 mg/dL (8.5-10.1); Carbon Dioxide 24.4 mmol/L (21.0-32.0); Chloride 105 mmol/L (98-107); Estimated GFR (African America >60 (>=60 mL/min/1.73m^2); Estimated GFR (Non-African Ame >60 (>=60 mL/min/1.73m^2); Glucose 90 mg/dL (74-106); Potassium 3.6 mmol/L (3.5-5.1); Sodium 142 mmol/L (136-145)
== END 2024-10-04 16:03 | disposition home or self-care (01) ==
PROVIDERS: Nurse Practitioner Family; Emergency Provider Emergency Medicine; PCP Internal Medicine
DX: J06.9 Acute upper respiratory infection, unspecified (principal); F17.290 Nicotine dependence, other tobacco product, uncomplicated; Z98.51 Tubal ligation status
CPT/HCPCS: 36415; 71046; 80048; 85025; 94640; 96361; 96374; 99285; J2919

== ENCOUNTER 2024-10-09 10:30 | Emergency (ER) | payer MEDICARE, SELFPAY ==
[2024-10-09 10:40] VITALS: PULSE 68; TEMP 36.7; O2SAT 98; BMI 45.7
--- NOTE | 2024-10-09 10:42 | XR_ITS ---
The [address] [address] Patient Name: JAYE DOSS MRN: [id number] date: 1990 Sex: F Assigned Patient Location: ED.MAIN Current Patient Location: ED.MAIN Accession/Order Number: [id number] Exam Date: 10/09/2024 11:14 Report Date: 10/09/2024 11:17 At the request of: REI HER MD Procedure: XR foot RT min 3V Right ? FOOT - 3 views CLINICAL DATA: Patient's foot was run over by a wheelchair. Pain at the fifth toe. COMPARISON: None AP, lateral and oblique views were obtained. There is no evidence of fracture or dislocation. Calcaneal spurs are visualized, greater at the plantar surface. There are no significant soft tissue findings. XR/XR foot RT min 3V IMPRESSION: NO ACUTE BONY INJURY. Impression dictated by: Graciela Vail M.D. 10/09/2024 11:17 AM Dictation Location: [place] [address] Electronically authenticated by: [id number] Y Date: 10/09/2024 11:17
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
== END 2024-10-09 12:00 | disposition home or self-care (01) ==
PROVIDERS: Emergency Provider Emergency Medicine; PCP Internal Medicine
DX: S90.121A Contusion of right lesser toe(s) without damage to nail, initial encounter (principal); X58.XXXA Exposure to other specified factors, initial encounter; Z98.51 Tubal ligation status; Z87.891 Personal history of nicotine dependence
CPT/HCPCS: 73630; 99283